=== PATIENT | female | born 1950 | race Caucasian/White ===

== ENCOUNTER → 2017-04-28 | Outpatient (REF) | payer MEDICARE ==
[2017-04-28 14:26] LABS: BASO % 0.8 % (0.0-1.0); EOS # 0.1 10^3/uL (0.0-0.50); EOS % 2.1 % (0.0-3.0); HEMATOCRIT 41.7 % (36.0-47.0); HEMOGLOBIN 13.4 g/dl (12.0-16.0); IMMATURE GRANULOCYTE % 0.2 % (0-3.0); LYMPH # 1.4 10^3/uL (1.5-4.5); LYMPH % 29.4 % (24.0-44.0); MEAN CORPUSCULAR HEMOGLOBIN 29.7 pg (27.0-33.0); MEAN CORPUSCULAR HGB CONC 32.1 g/dl (32.0-36.5); MEAN CORPUSCULAR VOLUME 92.5 fl (80.0-96.0); MONO # 0.4 10^3/uL (0.0-0.8); MONO % 8.3 % (0.0-5.0); NEUTROPHILS # 2.9 10^3/uL (1.8-7.7); NEUTROPHILS % 59.2 % (36.0-66.0); PLATELET COUNT, AUTOMATED 214 10^3/uL (150-450); RED BLOOD COUNT 4.51 10^6/uL (4.00-5.40); RED CELL DISTRIBUTION WIDTH 13.2 % (11.5-14.5); WHITE BLOOD COUNT 4.8 10^3/uL (4.0-10.0)
[2017-04-28 15:22] LABS: ALBUMIN 3.9 GM/DL (3.2-5.2); ALBUMIN/GLOBULIN RATIO 1.44 (1.00-1.93); ALKALINE PHOSPHATASE 51 U/L (45-117); ALT/SGPT 31 U/L (12-78); ANION GAP 7 MEQ/L (8-16); AST/SGOT 20 U/L (7-37); BILIRUBIN,TOTAL 0.3 MG/DL (0.2-1.0); BLOOD UREA NITROGEN 12 MG/DL (7-18); CALCIUM LEVEL 8.8 MG/DL (8.8-10.2); CARBON DIOXIDE LEVEL 29 MEQ/L (21-32); CHLORIDE LEVEL 109 MEQ/L (98-107); CHOLESTEROL LEVEL 211 MG/DL (<200); CHOLESTEROL RISK RATIO 3.246 (<5); CREATININE FOR GFR 0.59 MG/DL (0.55-1.30); GLOMERULAR FILTRATION RATE > 60.0 (>45); GLUCOSE, FASTING 81 MG/DL (70-100); HDL CHOLESTEROL 65 MG/DL (>40); LDL CHOLESTEROL 123.4 MG/DL (<100); NON-HDL-C 146 MG/DL; POTASSIUM SERUM 4.3 MEQ/L (3.5-5.1); SODIUM LEVEL 145 MEQ/L (136-145); TOTAL PROTEIN 6.6 GM/DL (6.4-8.2); TRIGLYCERIDES LEVEL 113 MG/DL (<150)
[2017-04-28 15:33] LABS: ESTIMATED AVERAGE GLUCOSE 108 MG/DL (60-110); HEMOGLOBIN A1c 5.4 %
== END ==
LOC: M SFHCPLAZ 10:15
DX: E66.9 Obesity, unspecified (principal); Z79.899 Other long term (current) drug therapy
CPT/HCPCS: 80053

== ENCOUNTER → 2017-09-25 | Outpatient (REF) | payer MEDICARE ==
[2017-09-25 13:10] LABS: CHOLESTEROL LEVEL 240 MG/DL (<200); HDL CHOLESTEROL 62 MG/DL (>40); LDL CHOLESTEROL 154.6 MG/DL (<100); NON-HDL-C 178 MG/DL; TRIGLYCERIDES LEVEL 117 MG/DL (<150)
[2017-09-25 13:13] LABS: TOTAL 25(OH) VITAMIN D 20.3 NG/ML (30.0-100.0)
== END ==
LOC: M SFHCPLAZ 09:52
DX: E78.00 Pure hypercholesterolemia, unspecified (principal); E55.9 Vitamin D deficiency, unspecified; Z79.899 Other long term (current) drug therapy
CPT/HCPCS: 82306

== ENCOUNTER → 2017-10-29 | Outpatient (CLI) | payer MEDICARE | LOC: M WHC 09:56 | DX: M81.0 Age-related osteoporosis without current pathological fracture (principal) | CPT/HCPCS: 77080 ==

== ENCOUNTER → 2017-10-30 | Outpatient (REF) | payer MEDICARE ==
[2017-10-30 12:43] LABS: ALBUMIN 3.4 GM/DL (3.2-5.2); ALBUMIN/GLOBULIN RATIO 1.13 (1.00-1.93); ALKALINE PHOSPHATASE 57 U/L (45-117); ALT/SGPT 35 U/L (12-78); ANION GAP 9 MEQ/L (8-16); AST/SGOT 21 U/L (7-37); BILIRUBIN,TOTAL 0.3 MG/DL (0.2-1.0); BLOOD UREA NITROGEN 11 MG/DL (7-18); CALCIUM LEVEL 8.7 MG/DL (8.8-10.2); CARBON DIOXIDE LEVEL 27 MEQ/L (21-32); CHLORIDE LEVEL 109 MEQ/L (98-107); CHOLESTEROL LEVEL 139 MG/DL (<200); CHOLESTEROL RISK RATIO 2.396 (<5); CPK CREATINE PHOSPHOKINASE 50 U/L (26-192); CREATININE FOR GFR 0.53 MG/DL (0.55-1.30); GLOMERULAR FILTRATION RATE > 60.0 (>45); GLUCOSE, FASTING 84 MG/DL (70-100); HDL CHOLESTEROL 58 MG/DL (>40); LDL CHOLESTEROL 60.8 MG/DL (<100); NON-HDL-C 81 MG/DL; POTASSIUM SERUM 4.3 MEQ/L (3.5-5.1); SODIUM LEVEL 145 MEQ/L (136-145); TOTAL PROTEIN 6.4 GM/DL (6.4-8.2); TRIGLYCERIDES LEVEL 101 MG/DL (<150)
== END ==
LOC: M SFHCPLAZ 09:11
DX: E78.00 Pure hypercholesterolemia, unspecified (principal)
CPT/HCPCS: 82550

== ENCOUNTER → 2017-10-30 | Outpatient (CLI) | payer MEDICARE | LOC: M SMT 12:01 | DX: R22.42 Localized swelling, mass and lump, left lower limb (principal); S80.12XA Contusion of left lower leg, initial encounter; W19.XXXA Unspecified fall, initial encounter; Y92.9 Unspecified place or not applicable; E78.00 Pure hypercholesterolemia, unspecified | CPT/HCPCS: 73590; 82550 ==

== ENCOUNTER 2017-11-03 07:46 | Outpatient (CLI) | payer MEDICARE ==
[2017-11-03] MEDS: ZOLEDRONIC ACID 5 MG in APPROPRIATE DILUENT 1 EA IV (08:02)
== END 2017-11-03 08:50 | disposition home or self-care (01) ==
LOC: M INFU 07:46
DX: M81.0 Age-related osteoporosis without current pathological fracture (principal); R51 Headache; M54.9 Dorsalgia, unspecified; F41.0 Panic disorder [episodic paroxysmal anxiety]; M48.00 Spinal stenosis, site unspecified; Z79.82 Long term (current) use of aspirin; Z79.899 Other long term (current) drug therapy; Z90.710 Acquired absence of both cervix and uterus; Z90.49 Acquired absence of other specified parts of digestive tract
CPT/HCPCS: J3489

== ENCOUNTER → 2018-05-19 | Outpatient (CLI) | payer MEDICARE ==
[~2018-05-19] MED LIST: ACET-683 PO; AMLO25TA PO; ASPI81TA85 PO; DRIS50003 PO; GABA-845 PO; OMEP40CA2 PO; PARO10TA3 PO
--- NOTE | 2018-05-19 14:10 | REPMRS ---
Patient History The patient states she has not had a clinical breast exam in over a year. Family history of ovarian cancer at age 50 in sister, colorectal cancer at age 50 in sister. No Hormone Replacement Therapy 3D TOMOSYNTHESIS WAS PERFORMED. Digital Woman Screen Mammo: May 19, 2018 - Exam #: [id number] Bilateral CC and MLO view(s) were taken. Technologist: Deana Ruiz, Technologist Prior study comparison: February 2017, bilateral digital mammo screening bilat, performed at [facility]. FINDINGS: There are scattered fibroglandular densities. There has been no change in the appearance of the mammogram from the prior studies. There is a mild amount of residual fibroglandular tissue which is fairly symmetric. There is no interval development of dominant mass, architectural distortion, or clustered microcalcification suggestive of malignancy. Assessment: BI-RADS/ACR category 1 mammogram. Negative Mammogram. Recommendation Routine screening mammogram in 1 year (for women over age 40). This mammogram was interpreted with the aid of an FDA-approved computer-aided dectection system. Electronically Signed By: Juan Aldrich MD 05/19/18 [id number]
== END ==
LOC: M WHC 09:45
PROVIDERS: ATTEND Physician Assistant Medical
DX: Z12.31 Encounter for screening mammogram for malignant neoplasm of breast (principal)

== ENCOUNTER → 2018-06-29 | Outpatient (CLI) | payer MEDICARE ==
--- NOTE | 2018-06-29 14:23 | REP ---
REASON: Pelvic pain . Secondary to the patient's complaints of pain, ovarian Doppler was obtained. There are no priors for comparison. Transvesical and transvaginal imaging was obtained. The patient is status post hysterectomy. Right ovary measures 2.7 x 1.3 x 1.6 cm and is within normal limits with an RI 0.42 Left ovary measures 1.1 x 0.8 x 1.2 cm and is within normal limits with an RI 0.53. Urinary bladder measures 10 x 10 x 9 cm. The technologist has made reverences to some vague nodule inferior to the urinary bladder. The etiology of this, if real is uncertain. IMPRESSION: 1. No ovarian abnormality. Findings as described above. 2. Questionable nodule in the pelvis. CT is recommended for further evaluation.
== END ==
LOC: M WHC 11:03
PROVIDERS: ATTEND Nurse Practitioner Family
DX: R19.00 Intra-abdominal and pelvic swelling, mass and lump, unspecified site (principal); Z80.41 Family history of malignant neoplasm of ovary; Z90.79 Acquired absence of other genital organ(s)

== ENCOUNTER → 2018-07-03 | Outpatient (REF) | payer MEDICARE ==
[2018-07-03 16:21] LABS: ALBUMIN 4.2 GM/DL (3.2-5.2); ALT/SGPT 33 U/L (12-78); BILIRUBIN,TOTAL 0.5 MG/DL (0.2-1.0); BLOOD UREA NITROGEN 12 MG/DL (7-18); CALCIUM LEVEL 9.2 MG/DL (8.8-10.2); CARBON DIOXIDE LEVEL 29 MEQ/L (21-32); CHLORIDE LEVEL 106 MEQ/L (98-107); CREATININE FOR GFR 0.58 MG/DL (0.55-1.30); FREE T4 1.01 NG/DL (0.76-1.46); GLOMERULAR FILTRATION RATE > 60.0 (>45); GLUCOSE, FASTING 78 MG/DL (70-100); POTASSIUM SERUM 4.1 MEQ/L (3.5-5.1); PTH INTACT 57.2 PG/ML (18.5-88.0); SODIUM LEVEL 141 MEQ/L (136-145); THYROID STIMULATING HORMONE 0.597 uIU/ML (0.358-3.740); TOTAL 25(OH) VITAMIN D 99.1 NG/ML (30.0-100.0); TOTAL PROTEIN 6.8 GM/DL (6.4-8.2)
== END ==
LOC: M SFHCPLAZ 13:34
PROVIDERS: ATTEND Physician Assistant Medical
DX: E55.9 Vitamin D deficiency, unspecified (principal); I10 Essential (primary) hypertension; E66.9 Obesity, unspecified

== ENCOUNTER → 2018-07-08 | Outpatient (CLI) | payer MEDICARE ==
[~2018-07-08] MED LIST changes: +GASTROGRAFIN SOLUTION 30ML (Q9963) As Ordered ONE; +ISOVUE-370 76% 100ML VIAL (Q9967) As Ordered ONE
--- NOTE | 2018-07-08 16:28 | REP ---
CT of the abdomen and pelvis with IV and oral contrast: Study is correlated with the pelvic ultrasound dated 06/29/2018. The patient has a hysterectomy. On the pelvic ultrasound. The technologist identified a soft tissue density along the inferior margin of the bladder of uncertain significance. Pelvis: The bladder is unremarkable. The vaginal cuff and adnexa are unremarkable. There is soft tissue fullness interposed between the bladder base and vaginal vault, nonspecific. This could represent a coapted portion of the vaginal volts or possibly a hysterectomy. Postsurgical change. The reason for the hysterectomy is unknown to this examiner. As a precaution, I would recommend a follow-up study in approximately 3-4 months to evaluate for progressive change. Follow-up could be performed with MRI or CT. The appendix is unremarkable. There is no pelvic adenopathy or ascites. The pelvic bowel loops are unremarkable. Abdomen: The visualized lung west are unremarkable. The hepatic parenchyma is unremarkable. There is a cholecystectomy. The pancreas, spleen, adrenals, kidneys and abdominal aorta are unremarkable except for a small simple right renal cyst at the mid pole approximate 1 cm in diameter. There is no bowel distension or obstruction. The mesentery is unremarkable. Impression: Soft tissue fullness at the bladder base in this patient who has had a hysterectomy. This could represent postsurgical change or possibly coaptation of the vaginal vault. As a precaution, follow-up MRI or CT in approximately 3-4 months might be considered to evaluate for progressive change. Hysterectomy. Cholecystectomy. Electronically Signed by Juan Ayala MD 07/08/2018 04:20 P
== END ==
LOC: M RAD 13:45
PROVIDERS: ATTEND Nurse Practitioner Family
DX: R10.2 Pelvic and perineal pain (principal); R93.89 Abnormal findings on diagnostic imaging of other specified body structures; Z90.79 Acquired absence of other genital organ(s)
CPT/HCPCS: 74177; Q9963; Q9967

== ENCOUNTER 2018-11-12 14:38 | Outpatient (CLI) | payer MEDICARE ==
[~2018-11-12] VITALS: Ht 157.5 cm; Wt 79.0 kg
[~2018-11-12 14:38] MED LIST changes: +ATOR1TAB19 PO; +GABA600T4 PO; -GASTROGRAFIN SOLUTION 30ML (Q9963) As Ordered ONE; -ISOVUE-370 76% 100ML VIAL (Q9967) As Ordered ONE; +OMEP1CAP73 PO; -OMEP40CA2 PO; +OMEP40CA97 PO; +RALO1TAB
[2018-11-12 14:40] VITALS: BP 130/67
[2018-11-12] MEDS ORDERED: ZOLEDRONIC ACID 5 MG in IV 1 EA IV ONE (15:00)
[2018-11-12 16:00] VITALS: BP 126/64
== END 2018-11-12 16:00 | disposition home or self-care (01) ==
LOC: M INFU 14:38
PROVIDERS: ATTEND Physician Assistant Medical
DX: M81.0 Age-related osteoporosis without current pathological fracture (principal)
CPT/HCPCS: 96365; J3489

== ENCOUNTER → 2019-03-15 | Outpatient (CLI) | payer MEDICARE ==
[2019-03-15 13:40] LABS: EOS # 0.1 10^3/uL (0.0-0.5); EOS % 1.9 % (0.0-3.0); HEMATOCRIT 43.5 % (36.0-47.0); HEMOGLOBIN 13.9 g/dl (12.0-15.5); LYMPH # 1.3 10^3/uL (1.5-5.0); LYMPH % 31.6 % (24.0-44.0); MEAN CORPUSCULAR HEMOGLOBIN 29.3 pg (27.0-33.0); MEAN CORPUSCULAR VOLUME 91.6 fl (80.0-96.0); MONO # 0.3 10^3/uL (0.0-0.8); NEUTROPHILS # 2.4 10^3/uL (1.5-8.5); NEUTROPHILS % 57.3 % (36.0-66.0); PLATELET COUNT, AUTOMATED 248 10^3/uL (150-450); RED BLOOD COUNT 4.75 10^6/uL (4.00-5.40); WHITE BLOOD COUNT 4.1 10^3/uL (4.0-10.0)
[2019-03-15 13:47] LABS: ALBUMIN 3.9 GM/DL (3.2-5.2); ALT/SGPT 21 U/L (12-78); BILIRUBIN,TOTAL 0.5 MG/DL (0.2-1.0); BLOOD UREA NITROGEN 12 MG/DL (7-18); CALCIUM LEVEL 8.8 MG/DL (8.8-10.2); CARBON DIOXIDE LEVEL 30 MEQ/L (21-32); CHLORIDE LEVEL 111 MEQ/L (98-107); CHOLESTEROL LEVEL 158 MG/DL (<200); CHOLESTEROL RISK RATIO 2.468 (<5); CREATININE FOR GFR 0.53 MG/DL (0.55-1.30); GLOMERULAR FILTRATION RATE > 60.0 (>45); GLUCOSE, FASTING 93 MG/DL (70-100); HDL CHOLESTEROL 64 MG/DL (>40); LDL CHOLESTEROL 65 MG/DL (<100); NON-HDL-C 94 MG/DL; POTASSIUM SERUM 4.2 MEQ/L (3.5-5.1); SODIUM LEVEL 144 MEQ/L (136-145); TOTAL PROTEIN 6.7 GM/DL (6.4-8.2); TRIGLYCERIDES LEVEL 145 MG/DL (<150)
[2019-03-15 13:56] LABS: PTH INTACT 69.6 PG/ML (18.5-88.0); TOTAL 25(OH) VITAMIN D 34.7 NG/ML (30.0-100.0)
[2019-03-15 14:35] LABS: HEMOGLOBIN A1c 5.4 %
== END ==
LOC: M PLALAB 10:52
PROVIDERS: ATTEND Physician Assistant Medical
DX: I10 Essential (primary) hypertension (principal); E78.00 Pure hypercholesterolemia, unspecified; E55.9 Vitamin D deficiency, unspecified; E66.9 Obesity, unspecified; Z79.899 Other long term (current) drug therapy

== ENCOUNTER 2019-04-06 14:31 | Emergency (ER) | payer MEDICARE ==
[~2019-04-06] VITALS: Ht 157.5 cm; Wt 75.2 kg
[2019-04-06 14:31] VITALS: BP 165/87
--- NOTE | 2019-04-06 16:35 | REP ---
Clinical: Pain. Trauma. Technique: AP and lateral views of the right tibia / fibula. Findings: No acute fracture dislocation. Joint spaces appear intact. No subcutaneous emphysema or foreign body. Impression: No acute fracture or dislocation. Electronically Signed by Khanh Dietz MD 04/06/2019 04:26 P
--- NOTE | 2019-04-06 16:35 | REP ---
Clinical: Pain. Technique: AP, lateral, bilateral oblique views of the right ankle. Findings: Swelling. No acute fracture dislocation. Impression: Swelling. No fracture. Electronically Signed by Khanh Dietz MD 04/06/2019 04:26 P
[2019-04-06] MEDS ORDERED: ACETAMINOPHEN 500 MG TAB PO ONE (17:30)
== END 2019-04-06 17:45 | disposition home or self-care (01) ==
LOC: M ED 14:31
DX: S93.401A Sprain of unspecified ligament of right ankle, initial encounter (principal); W00.0XXA Fall on same level due to ice and snow, initial encounter; Y92.9 Unspecified place or not applicable; Y93.9 Activity, unspecified; Y99.9 Unspecified external cause status; E78.5 Hyperlipidemia, unspecified; F41.9 Anxiety disorder, unspecified; I10 Essential (primary) hypertension; Z79.1 Long term (current) use of non-steroidal anti-inflammatories (NSAID); Z79.82 Long term (current) use of aspirin; Z79.899 Other long term (current) drug therapy

== ENCOUNTER → 2019-11-19 | Outpatient (CLI) | payer MEDICARE ==
[~2019-11-19] MED LIST changes: -ASPI81TA85 PO; +ASPI81TA86 PO; +RECL5INJ2 IV
[2019-11-19 11:39] LABS: BASO # 0.1 10^3/uL (0.0-0.2); BASO % 0.9 % (0.0-1.0); EOS # 0.1 10^3/uL (0.0-0.5); EOS % 1.5 % (0.0-3.0); HEMATOCRIT 45.7 % (36.0-47.0); HEMOGLOBIN 14.3 g/dl (12.0-15.5); LYMPH # 1.7 10^3/uL (1.5-5.0); MEAN CORPUSCULAR HEMOGLOBIN 29.4 pg (27.0-33.0); MEAN CORPUSCULAR HGB CONC 31.3 g/dl (32.0-36.5); MEAN CORPUSCULAR VOLUME 93.8 fl (80.0-96.0); MONO # 0.5 10^3/uL (0.0-0.8); MONO % 9.8 % (0.0-5.0); NEUTROPHILS % 56.4 % (36.0-66.0); PLATELET COUNT, AUTOMATED 253 10^3/uL (150-450); RED BLOOD COUNT 4.87 10^6/uL (4.00-5.40); WHITE BLOOD COUNT 5.3 10^3/uL (4.0-10.0)
[2019-11-19 12:09] LABS: ALBUMIN 3.8 GM/DL (3.2-5.2); ALT/SGPT 27 U/L (12-78); BILIRUBIN,TOTAL 0.5 MG/DL (0.2-1.0); BLOOD UREA NITROGEN 13 MG/DL (7-18); CALCIUM LEVEL 9.2 MG/DL (8.8-10.2); CARBON DIOXIDE LEVEL 29 MEQ/L (21-32); CHLORIDE LEVEL 109 MEQ/L (98-107); CREATININE FOR GFR 0.56 MG/DL (0.55-1.30); FREE T4 0.99 NG/DL (0.76-1.46); GLOMERULAR FILTRATION RATE > 60.0 (>45); GLUCOSE, FASTING 84 MG/DL (70-100); POTASSIUM SERUM 4.5 MEQ/L (3.5-5.1); SODIUM LEVEL 141 MEQ/L (136-145); THYROID STIMULATING HORMONE 0.826 uIU/ML (0.358-3.740); TOTAL PROTEIN 6.8 GM/DL (6.4-8.2)
== END ==
LOC: M PLALAB 09:06
PROVIDERS: ATTEND Physician Assistant Medical
DX: F41.9 Anxiety disorder, unspecified (principal); I10 Essential (primary) hypertension; M81.0 Age-related osteoporosis without current pathological fracture; K21.9 Gastro-esophageal reflux disease without esophagitis

== ENCOUNTER 2019-11-22 14:43 | Outpatient (CLI) | payer MEDICARE ==
[~2019-11-22] VITALS: Ht 157.5 cm; Wt 75.0 kg
[~2019-11-22 14:43] MED LIST changes: -RECL5INJ2 IV
[2019-11-22 14:45] VITALS: BP 134/73
[2019-11-22] MEDS ORDERED: RECL5INJ2 IV (15:12)
[2019-11-22] MEDS ORDERED: ZOLEDRONIC ACID 5 MG in IV 1 EA IV ONE (15:30)
[2019-11-22 15:45] VITALS: BP 133/74
== END 2019-11-22 15:45 | disposition home or self-care (01) ==
LOC: M INFU 14:43
PROVIDERS: ATTEND Family Medicine
DX: M85.80 Other specified disorders of bone density and structure, unspecified site (principal)
CPT/HCPCS: 96365; J3489

== ENCOUNTER 2020-03-10 11:55 | Emergency (ER) | payer MEDICARE ==
[~2020-03-10] VITALS: Ht 160 cm; Wt 74.4 kg
[~2020-03-10 11:55] MED LIST changes: +RECL5INJ2 IV
--- OUTSIDE RECORDS SUMMARY | 2020-03-10 12:02 | CCD ---
Author Author [facility] Package [employer]st [facility] Organization [facility] Syst ems Address Unknown Phone Unavailable Care Team Providers Care Charge Hand Name Role Phone Shaneka Culp Unavailable PROBLEMS Type Condition ICD9-CM Code [id number] Code Onset Dates Condition S tatus SNOMED Code Notes Problem Acquired absence of both cervix and uterus Z90.710 Active 057088869 Problem Vitamin D deficiency E55.9 Active 76255425 Problem Gastroesophageal reflux disease, esophagitis pre sence not specified K21.9 Active 414222738 Problem Anxiety F41.9 Active 13285833 Problem Obesity (BMI 30.0-34.9) E66.9 Active 01235278 8662285 Problem DDD (degenerative disc disease), lumbar M51.36 Active 64828055 Problem Essential hypertension I10 Active 95960100 Problem Colon cancer screening Z12.11 Active 644460126 Problem Pure hypercholesterolemia E78.00 Active 180814 004 Problem Age-related osteoporosis with current pathologic al fracture, sequela M80.00XS Active 445781862 Problem Age-related osteoporosis without current pathological fracture M81.0 Active 11842709 Problem Hypertension, unspecified type I10 Active 3 5896678 Problem Breast cancer screening Z12.31 Active 86057134 1 Problem Grief reaction F43.21 Active 036341898 Problem Cervical cancer screening Z12.4 Active 509990 001 Problem Situational stress F43.9 Active 82374551 Problem Family history of malignant neoplasm of ovary Z80. 41 Active 145672801 Problem Stress incontinence N39.3 Active 74061440 Problem Pelvic organ prolapse quantification stage 1 cystocele N81.10 Active 843435748 ALLERGIES No Known Allergies ENCOUNTERS from 1950 to 2020-01-04 Encounter Location Date Provider Diagnosis [facility] [place] [address] Dec, Shaneka Robbi DDD (degenerative disc disease), lumbar M51.36 and Anxiety F41.9 IMMUNIZATIONS Vaccine Route Administration Date Status Influenza (Pharmacy Given) Unknown Mar 27, 2019 Admin istered Zoster 50mcg/0.5mL (Shingrix) SC Subcutaneous August 03, 2019 Ad ministered Zoster 50mcg/0.5mL (Shingrix) SC Subcutaneous April 26, 2019 Ad ministered Pneumococcal Adult 0.5mL (Pneumovax 23) Unknown Mar 27, 2019 Administered SOCIAL HISTORY Tobacco Use: Social History Observation Description Date Details (start date - stop date) Former Smoker Sex Assigned At : Social History Observation Description Sex Assigned At Unknown Education: Question Answer Notes Level of Education: Finished High School Audit Question Answer Notes Total Score: 0 Interpretation: Alcohol Education Language: Question Answer Notes Languages spoken: Wolof Worship: Question Answer Notes Worship 21 Amish Sexual Hx: Question Answer Notes Have you ever had an STD? No Drug and Alcohol Question Answer Notes Total Score: 0 Interpretation: No problems reported Alcohol Screening: Question Answer Notes Did you have a drink containing alcohol in the past year? No Points 0 Interpretation Negative BMI Care Goal Follow-Up Question Answer Notes Above Normal BMI Follow-Up Lifestyle education regarding t Tobacco Use: Question Answer Notes Are you a: former smoker How long has it been since you last smoked? 5-10 years REASON FOR REFERRAL No Information VITAL SIGNS No information MEDICATIONS Medication SIG (Take, Route, Frequency, Duration) Start Date En d Date Status Gabapentin 600 MG 1 tablet Orally twice daily for 90 day(s) Active AmLODIPine Besylate 2.5 MG 1 tablet Orally Once a day for 90 days Active Lipitor 10 MG 1 tablet Orally Once a day for 90 Active Reclast 5 MG/100ML 1 injection Intravenous annual for 1 dose(s) Sep, Active Tylenol 1 tab Oral as needed Active Omeprazole 20 MG 1 capsule Orally Once a day for 90 day(s) Active Aspirin 81 81 MG 1 tablet Orally Once a day Active Paroxetine HCl 10 MG 1 tablet Orally twice daily for 90 days Active Meclizine HCl 25 MG 1 tablet as needed Orally Daily as neede d for 90 days Feb, Active Drisdol 85491 UNIT 1 capsule Orally Once weekly for 90 day(s) Active Raloxifene HCl 60 MG 1 tablet Orally Once a day for 90 day(s) Active PROCEDURES No Information RESULTS No Results REASON FOR VISIT refills MEDICAL (GENERAL) HISTORY Type Description Date Medical History Anxiety Medical History Osteoporosis Medical History DJD of Lumbar spine Medical History DDD of Lumbar spine Medical History GERD Medical History Herpes 1 Medical History H/o BPPV better since quit smoking a few smaller episodes since Medical History Leal's esophagus Medical History HTN Surgical History Vaginal hysterectomy 1991 Surgical History hemorrhoidectomy 2004 Surgical History Laparoscopic Cholecystectomy 2004 Surgical History Edentulous extracted Surgical History Colonoscopy clear in [place] c Dr. Carlo mckinney 2013 Surgical History Colonooscopy c nl mucosa, at terminal ileum and colon, grade 2 int. hem.s 11/2012 Surgical History EGD nl stomache, nl duodenum , nl gerjunction, recommended 3Yr. f/u Dr. Junior 11/2012 Surgical History EGD Leal's esophagus, bio psy c nl mucosa in fundus, Dr. Junior 2Mos. f/u 06/2012 Surgical History EGD Leal's esophagus, f/u 2Mos. again, ppi bidx3 mos., carafate Dr. Junior 08/2012 Surgical History EGD GE Junction biopsy intesttinal type, neg. dysplasia 01/2012 Hospitalization History surgery related 1991 Hospitalization History surgery related 2004 Goals Section No Information Health Concerns No Information MEDICAL EQUIPMENT No Information MENTAL STATUS No Information FUNCTIONAL STATUS No Information ASSESSMENTS Encounter Date Diagnosis Notes Dec, Anxiety (ICD-10 - F41.9) Dec, DDD (degenerative disc disease), lumbar (ICD-10 - M51.36) PLAN OF TREATMENT Medication Medication Name Sig Start Date Stop Date Gabapentin 600 MG 1 tablet Orally twice daily for 90 day(s) Meclizine HCl 25 MG 1 tablet as needed Orally Daily as neede d for 90 days Feb, Drisdol 42994 UNIT 1 capsule Orally Once weekly for 90 day(s) Paroxetine HCl 10 MG 1 tablet Orally twice daily for 90 days AmLODIPine Besylate 2.5 MG 1 tablet Orally Once a day for 90 day s Omeprazole 20 MG 1 capsule Orally Once a day for 90 day(s) Lipitor 10 MG 1 tablet Orally Once a day for 90 Next Appt Details Provider Name:Shaneka Culp, 2020-1 2-10 02:30:00 PM, [address] [place], [address], Insurance Providers Payer Name Payer Address Payer Phone Insured Name Patient Relati onship to Insured Coverage Start Date Coverage End Date MEDICARE COMPLETE UNITED HEALTHCARE [address] [address] [facility] [phone] THOMAS FRANCO self
--- OUTSIDE RECORDS SUMMARY | 2020-03-10 12:02 | CCD | Continuity of Care Document ---
Author Author [facility] Organization Unknown Address [address] [place] [address] [place] [address] Phone [phone] Care Team Providers Care Installation Helper Name Role Phone Shaneka Culp AUTM [phone] Dov Co Publi AUTM [phone] Problems Description No Information Available Social History Type Date Description Comments Sex Unknown ETOH Use Denies alcohol use Tobacco Use Start: Unknown End: Unknown Patient is a former smoker quit 2007 Tobacco Use Start: Unknown The Patient Has Never Vaped Smoking Status Reviewed: 03/03/20 The Patient Has Never Vaped Allergies, Adverse Reactions, Alerts Description No Known Drug Allergies Medications Active Medications SIG Qnty Indications Ordering Provide r Date Amlodipine Besylate 2.5mg Tablets qd Unknown Aspirin [address] on ce a day Unknown Atorvastatin Calcium 10mg Tablets qd Unknown Gabapentin 300mg Capsules 2 b id Unknown Omeprazole 20mg Capsules DR q d Unknown Paroxetine HCL 10mg Tablets b id Unknown Raloxifene HCL 60mg Tablets q d Unknown Tylenol 325mg Tablets prn Unknown Immunizations Description No Information Available Vital Signs Date Vital Result Comment 2020 9:52am BP Systolic 118 mmHg BP Diastolic 64 mmHg Heart Rate 88 /min Respiratory Rate 14 /min O2 % BldC Oximetry 97 % Body Temperature 97.0 F Weight 168.00 lb Pain Level 3 11/30/2018 6:59pm BP Systolic 142 mmHg BP Diastolic 80 mmHg Heart Rate 88 /min Respiratory Rate 18 /min O2 % BldC Oximetry 95 % Body Temperature 99.5 F Weight 170.00 lb Height 63 inches 5'3" BMI (Body Mass Index) 30.1 kg/m2 Pain Level 3 Results Description No Information Available Procedures Description No Information Available Medical Devices Description No Information Available Encounters Type Date Location Provider Dx Diagnosis Office Visit 2020 9:30a Main Office LINDY Garcia U07 .1 Covid-19 R05 Cough Z20.828 Contact w and exposure to ot h viral communicable diseases Assessments Date Code Description Provider 2020 U07.1 Covid-19 LINDY Sawyer 2020 R05 Cough LINDY Sawyer 2020 Z20.828 Contact with and (thomson spected) exposure to other viral communicable diseases LINDY Garcia Plan of Treatment No Information Available Functional Status Description No Information Available Mental Status Description No Information Available Referrals Description No Information Available
--- OUTSIDE RECORDS SUMMARY | 2020-03-10 12:02 | CCD | Continuity of Care Document ---
Author Author [facility] Organization Unknown Address [address] [place] [address] [place] [address] Phone [phone] Care Team Providers Care High School Art Teacher Name Role Phone Shaneka Culp AUTM [phone] Dov Co Publi AUTM [phone] Problems Description No Information Available Social History [...]
--- OUTSIDE RECORDS SUMMARY | 2020-03-10 12:02 | CCD ---
Author Author [facility] [employer] [facility] Syst ems Organization [facility] [employer] Syst ems Address Unknown Phone Unavailable Care Team Providers Care Hoseman Name Role Phone Shaneka Culp Unavailable PROBLEMS Type Condition ICD9-CM Code BQE79-SZ Code Onset Dates Condition S tatus SNOMED Code Notes Problem Acquired absence of both cervix and uterus Z90.710 Active 429411527 Problem Vitamin D deficiency E55.9 Active 38391864 Problem Gastroesophageal reflux disease, esophagitis pre sence not specified K21.9 Active 017490153 Problem Anxiety F41.9 Active 30178949 Problem Obesity (BMI 30.0-34.9) E66.9 Active 47758081 9368399 Problem DDD (degenerative disc disease), lumbar M51.36 Active 18321953 Problem Essential hypertension I10 Active 55377536 Problem Colon cancer screening Z12.11 Active 362933487 Problem Pure hypercholesterolemia E78.00 Active 606160 004 Problem Age-related osteoporosis with current pathologic al fracture, sequela M80.00XS Active 276111375 Problem Age-related osteoporosis without current pathological fracture M81.0 Active 72072753 Problem Hypertension, unspecified type I10 Active 3 7296470 Problem Breast cancer screening Z12.31 Active 29987340 1 Problem Grief reaction F43.21 Active 788792596 Problem Cervical cancer screening Z12.4 Active 483199 001 Problem Situational stress F43.9 Active 18502242 Problem Family history of malignant neoplasm of ovary Z80. 41 Active 231694625 Problem Stress incontinence N39.3 Active 76184889 Problem Pelvic organ prolapse quantification stage 1 cystocele N81.10 Active 391081046 ALLERGIES No Known Allergies ENCOUNTERS from 1950 to 2020-01-18 Encounter Location Date Provider Diagnosis [facility] [place] [address] Dec, Shaneka Culp Essential hypertension I10 IMMUNIZATIONS Vaccine Route Administration Date Status Influenza [...] Education Language: Question Answer Notes Languages spoken: Icelandic Mormon: Question Answer Notes Mormon 21 Rastafarian Sexual Hx: Question Answer Notes Have you [...] MEDICATIONS Medication SIG (Take, Route, Frequency, Duration) Notes Start Da te End Date Status Gabapentin 600 MG 1 tablet Orally twice daily for 90 day(s) Active AmLODIPine Besylate 2.5 MG 1 tablet Orally Once a day for 90 days Active Lipitor 10 MG 1 tablet Orally Once a day for 90 Active Reclast 5 MG/100ML 1 injection Intravenous annual for 1 dose(s) Sep, Active Tylenol 1 tab Oral as needed Acti ve Omeprazole 20 MG 1 capsule Orally Once a day for 90 day(s) Active Aspirin 81 81 MG 1 tablet Orally Once a day Active Paroxetine HCl 10 MG 1 tablet Orally twice daily for 90 days Active Meclizine HCl 25 MG 1 tablet as needed Orally Daily as needed fo r 90 days Feb, Active Drisdol 12738 UNIT 1 capsule Orally Once weekly for 90 day(s) Active Raloxifene HCl 60 MG 1 tablet Orally Once a day for 90 day(s) Active PROCEDURES No Information RESULTS No Results REASON FOR VISIT amlodopine MEDICAL (GENERAL) HISTORY Type Description Date Medical [...] Edentulous extracted Surgical History Colonoscopy clear in [place] c Dr. Carlo mckinney 2013 Surgical History [...] STATUS No Information ASSESSMENTS Encounter Date Diagnosis Assessment Notes Treatment Notes Treatm ent Clinical Notes Dec, Essential hypertension (ICD-10 - I10) PLAN OF TREATMENT Medication Medication Name Sig Start Date Stop Date Gabapentin 600 MG 1 tablet Orally twice daily for 90 day(s) Meclizine HCl 25 MG 1 tablet as needed Orally Daily as neede d for 90 days Feb, Nhan 30142 UNIT 1 capsule Orally Once weekly for [...] 90 Next Appt Details Provider Name:Shaneka Culp, 2019-04-05 02:30:00 PM, [address] [place] [address], [phone], Insurance Providers Payer Name Payer Address Payer Phone Insured Name Patient Relati onship to Insured Coverage Start Date Coverage End Date MEDICARE COMPLETE UNITED HEALTHCARE [address] [address] [facility] [phone] THOMAS FRANCO self
--- OUTSIDE RECORDS SUMMARY | 2020-03-10 12:02 | CCD ---
Author Author [facility] Syst ems Organization [facility] Syst ems Address Unknown Phone Unavailable Care Team Providers Care Lung Puller Name Role Phone Shaneka Culp Unavailable PROBLEMS Type Condition ICD9-CM Code FWC89-TU Code Onset Dates Condition S tatus SNOMED Code Notes Problem Acquired absence of both cervix and uterus Z90.710 Active 735754424 Problem Vitamin D deficiency E55.9 Active 49504033 Problem Gastroesophageal reflux disease, esophagitis pre sence not specified K21.9 Active 960928559 Problem Anxiety F41.9 Active 05011145 Problem Obesity (BMI 30.0-34.9) E66.9 Active 86802255 3882565 Problem DDD (degenerative disc disease), lumbar M51.36 Active 96511642 Problem Essential hypertension I10 Active 00845566 Problem Colon cancer screening Z12.11 Active 375772396 Problem Pure hypercholesterolemia E78.00 Active 050620 004 Problem Age-related osteoporosis with current pathologic al fracture, sequela M80.00XS Active 442172488 Problem Age-related osteoporosis without current pathological fracture M81.0 Active 28095033 Problem Hypertension, unspecified type I10 Active 3 1231268 Problem Breast cancer screening Z12.31 Active 77012499 1 Problem Grief reaction F43.21 Active 586646421 Problem Cervical cancer screening Z12.4 Active 487427 001 Problem Situational stress F43.9 Active 96473002 Problem Family history of malignant neoplasm of ovary Z80. 41 Active 160867689 Problem Stress incontinence N39.3 Active 57659097 Problem Pelvic organ prolapse quantification stage 1 cystocele N81.10 Active 146035609 ALLERGIES No Known Allergies ENCOUNTERS from 1950 to 2019-12-22 Encounter Location Date Provider Diagnosis [facility] [place] [address] Nov, Shaneka Culp IMMUNIZATIONS Vaccine Route Administration Date Status Influenza [...] Education Language: Question Answer Notes Languages spoken: Thai Baptist: Question Answer Notes Baptist 21 Gnosticism Sexual Hx: Question Answer Notes Have you [...] Duration) Start Date En d Date Status Drisdol 50040 UNIT 1 capsule Orally Once weekly for 90 day(s) Active Reclast 5 MG/100ML 1 injection Intravenous annual for 1 dose(s) Sep, Active Lipitor 10 MG 1 tablet Orally Once a day for 90 day(s) Active Paroxetine HCl 10 MG 1 tablet Orally twice daily for 90 days Active Raloxifene HCl 60 MG 1 tablet Orally Once a day for 90 day(s) Active Tylenol 1 tab Oral as needed Active AmLODIPine Besylate 2.5 MG 1 tablet Orally Once a day for 90 days Active Gabapentin 600 MG 1 tablet Orally twice daily for 30 day(s) Active Meclizine HCl 25 MG 1 tablet as needed Orally Daily as neede d for 90 days Feb, Active Omeprazole 20 MG 1 capsule Orally Once a day for 90 day(s) Active Aspirin 81 81 MG 1 tablet Orally Once a day Active PROCEDURES No Information RESULTS No Results REASON FOR VISIT needs appt MEDICAL (GENERAL) HISTORY Type Description Date Medical [...] No Information FUNCTIONAL STATUS No Information ASSESSMENTS No Information PLAN OF TREATMENT Medication Medication Name Sig Start Date Stop Date Nhan 25750 UNIT 1 capsule Orally Once weekly for 90 day(s) Meclizine HCl 25 MG 1 tablet as needed Orally Daily as neede d for 90 days Feb, Omeprazole 20 MG 1 capsule Orally Once a day for 90 day(s) Gabapentin 600 MG 1 tablet Orally twice daily for 30 day(s) Lipitor 10 MG 1 tablet Orally Once a day for 90 day(s) AmLODIPine Besylate 2.5 MG 1 tablet Orally Once a day for 90 day s Next Appt Details Provider Name:Shaneka Culp, 2019-02 02:30:00 PM, [address] [place], [address], Insurance Providers Payer Name Payer Address Payer Phone Insured Name Patient Relati onship to Insured Coverage Start Date Coverage End Date MEDICARE COMPLETE UNITED HEALTHCARE [address] [address] [facility] [phone] THOMAS FRANCO self
--- OUTSIDE RECORDS SUMMARY | 2020-03-10 12:03 | CCD ---
Author Author [facility] Organization [facility] Address Unknown Phone Unavailable Care Team Providers Care Dividing Machine Operator Name Role Phone Myles BRIONES MD Unavailable Unavailable ANSELMO, B MONICA CONCEPCION Unavailable Unavailable ANSELMO, B MONICA CONCEPCION Unavailable Unavailable ANSELMO, B MONICA CONCEPCION Unavailable Unavailable ANSELMO, B MONICA CONCEPCION Unavailable Unavailable ANSELMO, B MONICA CONCEPCION Unavailable Unavailable ANSELMO, B MONICA CONCEPCION Unavailable Unavailable ANSELMO, B MONICA CONCEPCION Unavailable Unavailable ANSELMO, B MONICA CONCEPCION Unavailable Unavailable ANSELMO, B MONICA CONCEPCION Unavailable Unavailable ANSELMO, B MONICA CONCEPCION Unavailable Unavailable ANSELMO, B MONICA CONCEPCION Unavailable Unavailable ANSELMO, B MONICA CONCEPCION Unavailable Unavailable ANSELMO, B MONICA CONCEPCION Unavailable Unavailable ANSELMO, B MONICA CONCEPCION Unavailable Unavailable ANSELMO, B MONICA CONCEPCION Unavailable Unavailable ANSELMO, B MONICA CONCEPCION Unavailable Unavailable ANSELMO, B MONICA CONCEPCION Unavailable Unavailable ANSELMO, Myles ANDERSON MD Unavailable Unavailable ANSELMO, Myles ANDERSON MD Unavailable Unavailable ANSELMO, Myles ANDERSON MD Unavailable Unavailable ANSELMO, Myles ANDERSON MD Unavailable Unavailable ANSELMO, Myles ANDERSON MD Unavailable Unavailable ANSELMO, Myles ANDERSON MD Unavailable Unavailable ANSELMO, Myles ANDERSON MD Unavailable Unavailable ANSELMO, Myles ANDERSON MD Unavailable Unavailable ANSELMO, Myles ANDERSON MD Unavailable Unavailable ANSELMO, Myles ANDERSON MD Unavailable Unavailable ANSELMO, Myles ANDERSON MD Unavailable Unavailable ANSELMO, Myles ANDERSON MD Unavailable Unavailable ANSELMO, Myles ANDERSON MD Unavailable Unavailable ANSELMO, Myles ANDERSON MD Unavailable Unavailable ANSELMO, Myles ANDERSON MD Unavailable Unavailable ANSELMO, Myles ANDERSON MD Unavailable Unavailable ANSELMO, Myles ANDERSON MD Unavailable Unavailable ANSELMO, Myles ANDERSON MD Unavailable Unavailable ANSELMO, Myles ANDERSON MD Unavailable Unavailable ANSELMO, Myles ANDERSON MD Unavailable Unavailable ANSELMO, Myles ANDERSON MD Unavailable Unavailable ANSELMO, Myles ANDERSON MD Unavailable Unavailable ANSELMO, Myles ANDERSON MD Unavailable Unavailable ANSELMO, Myles ANDERSON MD Unavailable Unavailable ANSELMO, Myles ANDERSON MD Unavailable Unavailable ANSELMO, Myles ANDERSON MD Unavailable Unavailable ANSELMO, Myles ANDERSON MD Unavailable Unavailable ANSELMO, Myles ANDERSON MD Unavailable Unavailable ANSELMO, Myles ANDERSON MD Unavailable Unavailable ANSELMO, Myles ANDERSON MD Unavailable Unavailable ANSELMO, Myles ANDERSON MD Unavailable Unavailable ANSELMO, Myles ANDERSON MD Unavailable Unavailable ANSELMO, Myles ANDERSON MD Unavailable Unavailable ANSELMO, Myles ANDERSON MD Unavailable Unavailable ANSELMO, Myles ANDERSON MD Unavailable Unavailable ANSELMO, Myles ANDERSON MD Unavailable Unavailable ANSELMOMyles MD Unavailable Unavailable ANSELMOMyles MD Unavailable Unavailable ANSELMOMyles MD Unavailable Unavailable ANSELMOMyles MD Unavailable Unavailable ANSELMO, Myles ANDERSON MD Unavailable Unavailable ANSELMO, Myles ANDERSON MD Unavailable Unavailable ANSELMO, Myles ANDERSON MD Unavailable Unavailable ANSELMO, Myles ANDERSON MD Unavailable Unavailable ANSELMO, Myles ANDERSON MD Unavailable Unavailable ANSELMO, Myles ANDERSON MD Unavailable Unavailable ANSELMO, Myles ANDERSON MD Unavailable Unavailable ANSELMO, Myles ANDERSON MD Unavailable Unavailable ANSELMO, Myles ANDERSON MD Unavailable Unavailable ANSELMO, B MONICA MD Unavailable Unavailable ANSELMO, B MONICA MD Unavailable Unavailable ANSELMO, B MONICA MD Unavailable Unavailable ANSELMO, B MONICA MD Unavailable Unavailable ANSELMO, B MONICA MD Unavailable Unavailable ANSELMO, B MONICA MD Unavailable Unavailable ANSELMO, B MONICA MD Unavailable Unavailable ANSELMO, B MONICA MD Unavailable Unavailable ANSELMO, B MONICA MD Unavailable Unavailable ANSELMO, B MONICA MD Unavailable Unavailable ANSELMO, B MONICA MD Unavailable Unavailable ANSELMO, B MONICA MD Unavailable Unavailable ANSELMO, B MONICA MD Unavailable Unavailable ANSELMO, B MONICA MD Unavailable Unavailable ANSELMO, B MONICA MD Unavailable Unavailable ANSELMO, B MONICA MD Unavailable Unavailable Skipton, E Charlotte MD Unavailable Unavailable Skipton, E Charlotte MD Unavailable Unavailable Skipton, E Charlotte MD Unavailable Unavailable Skipton, E Charlotte MD Unavailable Unavailable Skipton, E Charlotte MD Unavailable Unavailable Skipton, E Charlotte MD Unavailable Unavailable Skipton, E Charlotte MD Unavailable Unavailable Skipton, E Charlotte MD Unavailable Unavailable Skipton, E Charlotte MD Unavailable Unavailable Skipton, E Charlotte MD Unavailable Unavailable Skipton, E Charlotte MD Unavailable Unavailable Skipton, E Charlotte MD Unavailable Unavailable Skipton, E Charlotte MD Unavailable Unavailable Skipton, E Charlotte MD Unavailable Unavailable Skipton, E Charlotte MD Unavailable Unavailable Skipton, E Charlotte MD Unavailable Unavailable Skipton, E Charlotte MD Unavailable Unavailable Skipton, E Charlotte MD Unavailable Unavailable Skipton, E Charlotte MD Unavailable Unavailable Skipton, E Charlotte MD Unavailable Unavailable Skipton, E Charlotte MD Unavailable Unavailable Skipton, E Charlotte MD Unavailable Unavailable Skipton, E Charlotte MD Unavailable Unavailable Skipton, E Charlotte MD Unavailable Unavailable Skipton, E Charlotte MD Unavailable Unavailable Skipton, E Charlotte MD Unavailable Unavailable Skipton, E Charlotte MD Unavailable Unavailable Skipton, E Charlotte MD Unavailable Unavailable Skipton, E Charlotte MD Unavailable Unavailable Skipton, E Charlotte MD Unavailable Unavailable Skipton, E Charlotte MD Unavailable Unavailable Skipton, E Charlotte MD Unavailable Unavailable Skipton, E Charlotte MD Unavailable Unavailable Skipton, E Charlotte MD Unavailable Unavailable Skipton, E Charlotte MD Unavailable Unavailable Skipton, E Charlotte MD Unavailable Unavailable Skipton, E Charlotte MD Unavailable Unavailable Skipton, E Charlotte MD Unavailable Unavailable Skipton, E Charlotte MD Unavailable Unavailable Skipton, E Charlotte MD Unavailable Unavailable Skipton, E Charlotte MD Unavailable Unavailable Skipton, E Charlotte MD Unavailable Unavailable Skipton, E Charlotte MD Unavailable Unavailable Skipton, E Charlotte MD Unavailable Unavailable Skipton, E Charlotte MD Unavailable Unavailable Skipton, E Charlotte MD Unavailable Unavailable Skipton, E Charlotte MD Unavailable Unavailable Skipton, E Charlotte MD Unavailable Unavailable Skipton, E Charlotte MD Unavailable Unavailable Skipton, E Charlotte MD Unavailable Unavailable Skipton, E Charlotte MD Unavailable Unavailable COMMISSO, Olena FANG MD Unavailable Unavailable COMMISSO, Olena FANG MD Unavailable Unavailable COMMISSO, Olena FANG MD Unavailable Unavailable COMMISSO, Olena FANG MD Unavailable Unavailable COMMISSO, Olena FANG MD Unavailable Unavailable COMMISSO, Olena FANG MD Unavailable Unavailable COMMISSO, Olena FANG MD Unavailable Unavailable COMMISSOOlena MD Unavailable Unavailable COMMISSOOlena MD Unavailable Unavailable COMMISSOOlena MD Unavailable Unavailable COMMISSOOlena MD Unavailable Unavailable COMMISSOOlena MD Unavailable Unavailable COMMISSOOlena MD Unavailable Unavailable COMMISSOOlena MD Unavailable Unavailable COMMISSOOlean MD Unavailable Unavailable COMMISSOOlena MD Unavailable Unavailable COMMISSOOlena MD Unavailable Unavailable COMMISSOOlena MD Unavailable Unavailable COMMISSOOlena MD Unavailable Unavailable COMMISSOOlena MD Unavailable Unavailable COMMISSOOlena MD Unavailable Unavailable COMMISSOOlena MD Unavailable Unavailable COMMISSOOlena MD Unavailable Unavailable COMMISSOOlena MD Unavailable Unavailable COMMISSOOlena MD Unavailable Unavailable COMMISSOOlena MD Unavailable Unavailable COMMISSOOlena MD Unavailable Unavailable COMMISSOOlena MD Unavailable Unavailable COMMISSOOlena MD Unavailable Unavailable COMMISSOOlena MD Unavailable Unavailable COMMISSOOlena MD Unavailable Unavailable COMMISSOOlena MD Unavailable Unavailable COMMISSOOlena MD Unavailable Unavailable COMMISSOOlena MD Unavailable Unavailable COMMISSOOlena MD Unavailable Unavailable COMMISSOOlena MD Unavailable Unavailable COMMISSOOlena MD Unavailable Unavailable COMMISSOOlena MD Unavailable Unavailable COMMISSOOlena MD Unavailable Unavailable COMMOlena CERVANTES MD Unavailable Unavailable COMMISSOlena Das MD Unavailable Unavailable COMMOlena CERVANTES MD Unavailable Unavailable COMMISSOOlena MD Unavailable Unavailable COMMISSOOlena MD Unavailable Unavailable COMMADINOOlena MD Unavailable Unavailable COMMADINOOlena MD Unavailable Unavailable COMMISSOlena Das MD Unavailable Unavailable COMMISSOOlena MD Unavailable Unavailable COMMISSOlena Das MD Unavailable Unavailable COMMISSOOlena MD Unavailable Unavailable COMMISSOlena Das MD Unavailable Unavailable COMMISSOOlena MD Unavailable Unavailable COMMISSOOlena MD Unavailable Unavailable COMMISSOOlena MD Unavailable Unavailable COMMISSOlena Das MD Unavailable Unavailable COMMISSOOlena MD Unavailable Unavailable COMMOlena CERVANTES MD Unavailable Unavailable COMMOlena CERVANTES MD Unavailable Unavailable COMMOlena CERVANTES MD Unavailable Unavailable COMMOlena CERVANTES MD Unavailable Unavailable COMMOlena CERVANTES MD Unavailable Unavailable STANBRIDGEMAINE, NAOMIE REFRIGERATOR MOVER Unavailable Unavaila ble STANBRIDGEMAINE, NAOMIE REFRIGERATOR MOVER Unavailable Unavaila ble STANBRIDGEMAINE, NAOMIE REFRIGERATOR MOVER Unavailable Unavaila ble STANBRIDGEMAINE, NAOMIE REFRIGERATOR MOVER Unavailable Unavaila ble STANBRIDGEMAINE, NAOMIE REFRIGERATOR MOVER Unavailable Unavaila ble STANBRIDGEMAINE, NAOMIE REFRIGERATOR MOVER Unavailable Unavaila ble STANBRIDGEMAINE, NAOMIE REFRIGERATOR MOVER Unavailable Unavaila ble STANBRIDGEMAINE, NAOMIE REFRIGERATOR MOVER Unavailable Unavaila ble STANBRIDGEMAINE, NAOMIE REFRIGERATOR MOVER Unavailable Unavaila ble STANBRIDGEMAINE, NAOMIE REFRIGERATOR MOVER Unavailable Unavaila ble RICARDO HOLLINS MD Unavailable Unavailable RICARDO HOLLINS MD Unavailable Unavailable RICARDO HOLLINS MD Unavailable Unavailable RICARDO HOLLINS MD Unavailable Unavailable RICARDO HOLLINS MD Unavailable Unavailable RICARDO HOLLINS MD Unavailable Unavailable RICARDO HOLLINS MD Unavailable Unavailable RICARDO HOLLINS MD Unavailable Unavailable RICARDO HOLLINS MD Unavailable Unavailable RICARDO HOLLINS MD Unavailable Unavailable RICARDO HOLLINS MD Unavailable Unavailable RICARDO HOLLINS MD Unavailable Unavailable RICARDO HOLLINS MD Unavailable Unavailable RICARDO HOLLINS MD Unavailable Unavailable RICARDO HOLLINS MD Unavailable Unavailable RICARDO HOLLINS MD Unavailable Unavailable RICARDO HOLLINS MD Unavailable Unavailable RICARDO HOLLINS MD Unavailable Unavailable HOLLINSRICARDO FLOWERS MD Unavailable Unavailable HOLLINSRICARDO MD Unavailable Unavailable HOLLINSRICARDO FLOWERS MD Unavailable Unavailable HOLLINSRICARDO MD Unavailable Unavailable HOLLINSRICARDO MD Unavailable Unavailable HOLLINSRICARDO MD Unavailable Unavailable HOLLINSRICARDO MD Unavailable Unavailable HOLLINSRICARDO MD Unavailable Unavailable HOLLINSRICARDO MD Unavailable Unavailable HOLLINSRICARDO MD Unavailable Unavailable HOLLINSRICARDO MD Unavailable Unavailable HOLLINSRICARDO MD Unavailable Unavailable Daisha ECHEVARRIA MD Unavailable Unavailable Daisha ECHEVARRIA MD Unavailable Unavailable Daisha ECHEVARRIA MD Unavailable Unavailable Daisha ECHEVARRIA MD Unavailable Unavailable Daisha ECHEVARRIA MD Unavailable Unavailable Daisha ECHEVARRIA MD Unavailable Unavailable Daisha ECHEVARRIA MD Unavailable Unavailable Daisha ECHEVARRIA MD Unavailable Unavailable Daisha ECHEVARRIA MD Unavailable Unavailable Daisha ECHEVARRIA MD Unavailable Unavailable Daisha ECHEVARRIA MD Unavailable Unavailable Daisha ECHEVARRIA MD Unavailable Unavailable Daisha ECHEVARRIA MD Unavailable Unavailable Daisha ECHEVARRIA MD Unavailable Unavailable Daisha ECHEVARRIA MD Unavailable Unavailable Daisha ECHEVARRIA MD Unavailable Unavailable Daisha ECHEVARRIA MD Unavailable Unavailable Daisha ECHEVARRIA MD Unavailable Unavailable Daisha ECHEVARRIA MD Unavailable Unavailable Daisha ECHEVARRIA MD Unavailable Unavailable Daisha ECHEVARRIA MD Unavailable Unavailable Daisha ECHEVARRIA MD Unavailable Unavailable Daisha ECHEVARRIA MD Unavailable Unavailable Daisha ECHEVARRIA MD Unavailable Unavailable Daisha ECHEVARRIA MD Unavailable Unavailable Daisha ECHEVARRIA MD Unavailable Unavailable Daisha ECHEVARRIA MD Unavailable Unavailable Daisha ECHEVARRIA MD Unavailable Unavailable Daisha ECHEVARRIA MD Unavailable Unavailable Daisha ECHEVARRIA MD Unavailable Unavailable Daisha ECHEVARRIA MD Unavailable Unavailable Daisha ECHEVARRIA MD Unavailable Unavailable Daisha ECHEVARRIA MD Unavailable Unavailable Daisha ECHEVARRIA MD Unavailable Unavailable Daisha ECHEVARRIA MD Unavailable Unavailable Daisha ECHEVARRIA MD Unavailable Unavailable Daisha ECHEVARRIA MD Unavailable Unavailable Daisha ECHEVARRIA MD Unavailable Unavailable Daisha ECHEVARRIA MD Unavailable Unavailable Daisha ECHEVARRIA MD Unavailable Unavailable Daisha ECHEVARRIA MD Unavailable Unavailable Daisha ECHEVARRIA MD Unavailable Unavailable Daisha ECHEVARRIA MD Unavailable Unavailable Daisha ECHEVARRIA MD Unavailable Unavailable Daisha ECHEVARRIA MD Unavailable Unavailable Daisha ECHEVARRIA MD Unavailable Unavailable Daisha ECHEVARRIA MD Unavailable Unavailable Daisha ECHEVARRIA MD Unavailable Unavailable Daisha ECHEVARRIA MD Unavailable Unavailable HAHER, R LORENZO MD Unavailable Unavailable HAHER, R LORENZO MD Unavailable Unavailable HAHER, R LORENZO MD Unavailable Unavailable HAHER, R LORENZO MD Unavailable Unavailable HAHER, R LORENZO MD Unavailable Unavailable HAHER, R LORENZO MD Unavailable Unavailable HAHER, R LORENZO MD Unavailable Unavailable HAHER, R LORENZO MD Unavailable Unavailable HAHER, R LORENZO MD Unavailable Unavailable HAHER, R LORENZO MD Unavailable Unavailable HAHER, R LORENZO MD Unavailable Unavailable HAHER, R LORENZO MD Unavailable Unavailable HAHER, R LORENZO MD Unavailable Unavailable HAHER, R LORENZO MD Unavailable Unavailable HAHER, R LORENZO MD Unavailable Unavailable HAHER, R LORENZO MD Unavailable Unavailable HAHER, R LORENZO MD Unavailable Unavailable HAHER, R LORENZO MD Unavailable Unavailable HAHER, R LORENZO MD Unavailable Unavailable HAHER, R LORENZO MD Unavailable Unavailable HAHER, R LORENZO MD Unavailable Unavailable HAHER, R LORENZO MD Unavailable Unavailable HAHER, R LORENZO MD Unavailable Unavailable LETTIERE, A OMID PA Unavailable Unavailable LETTIERE, A OMID PA Unavailable Unavailable LETTIERE, A OMID PA Unavailable Unavailable LETTIERE, A OMID PA Unavailable Unavailable LETTIERE, A OMID PA Unavailable Unavailable LETTIERE, A OMID PA Unavailable Unavailable LETTIERE, A OMID PA Unavailable Unavailable LETTIERE, A OMID PA Unavailable Unavailable LETTIERE, A OMID PA Unavailable Unavailable LETTIERE, A OMID PA Unavailable Unavailable LETTIERE, A OMID PA Unavailable Unavailable LETTIERE, A OMID PA Unavailable Unavailable LETTIERE, A OMID PA Unavailable Unavailable LETTIERE, A OMID PA Unavailable Unavailable LETTIERE, A OMID PA Unavailable Unavailable LETTIERE, A OMID PA Unavailable Unavailable LETTIERE, A OMID PA Unavailable Unavailable LETTIERE, A OMID PA Unavailable Unavailable LETTIERE, A OMID PA Unavailable Unavailable LETTIERE, A OMID PA Unavailable Unavailable LETTIERE, A OMID PA Unavailable Unavailable LETTIERE, A OMID PA Unavailable Unavailable LETTIERE, A OMID PA Unavailable Unavailable LETTIERE, A OMID PA Unavailable Unavailable LETTIERE, A OMID PA Unavailable Unavailable LETTIERE, A OMID PA Unavailable Unavailable LETTIERE, A OMID PA Unavailable Unavailable LETTIERE, A OMID PA Unavailable Unavailable LETTIERE, A OMID PA Unavailable Unavailable Re-disclosure Warning The records that you are about to access may contain information from federally-assisted alcohol or drug abuse programs. If such information is present, then the following federally mandated warning applies: This information has been disclosed to you from records protected by federal confidentiality rules (42 CFR part 2). The federal rules prohibit you from making any further disclosure of this information unless further disclosure is expressly permitted by the written consent of the person to whom it pertains or as otherwise permitted by 42 CFR part 2. A general authorization for the release of medical or other information is NOT sufficient for this purpose. The Federal rules restrict any use of the information to criminally investigate or prosecute any alcohol or drug abuse patient.The records that you are about to access may contain highly sensitive health information, the redisclosure of which is protected by Article 27-F of the [facility] Public Health law. If you continue you may have access to information: Regarding HIV / AIDS; Provided by facilities licensed or operated by the [facility] Office of Mental Health; or Provided by the [facility] Office for People With Developmental Disabilities. If such information is present, then the following [facility] mandated warning applies: This information has been disclosed to you from confidential records which are protected by state law. State law prohibits you from making any further disclosure of this information without the specific written consent of the person to whom it pertains, or as otherwise permitted by law. Any unauthorized further disclosure in violation of state law may result in a fine or penitentiary sentence or both. A general authorization for the release of medical or other information is NOT sufficient authorization for further disc losure. Family History Family Member Name Family Member Gender Family Member Status Date o f Status Description Data Source(s) Unknown Male Problem MEDENT ([facility]) Unknown Female Problem [facility] ([facility]) Encounters Encounter Providers Location Date Indications Data Source(s ) Unknown [address] [facility] [place] [address] 03/09/2020 12:00:00 AM EST eCW1 ([facility]) Outpatient Attender: OMID fraire 2020 08:30:00 AM EST [facility] ([facility] Unknown [address] [facility] [place] [address] 01/17/2020 12:00:00 AM EST eCW1 ([facility]) Unknown [address] [facility] [place] [address] 01/03/2020 12:00:00 AM EST eCW1 ([facility]) Unknown [address] [facility] [place] [address] 12/22/2019 12:00:00 AM EDT eCW1 ([facility]) [facility] [address] [place] [address] [place] [address] 10/04/2019 12:00:00 AM EDT eCW1 ([facility]) Outpatient [address] [place] [address] Y [address] 08/03/2019 12:00:00 AM EDT eCW1 ([facility]) Unknown [address] [place] [address] [place] [address] 08/02/2019 12:00:00 AM EDT eCW1 [facility] Recurring Patient Attender: NAOMIE CROWE FNPReferrer: LORENZO ECHEVARRIA MD 07/27/2019 01:42:01 PM EDT [facility] [address] [address] 06/30/2019 12:00:00 AM EDT eCW1 ([facility]) [address] [place] [address] 06/29/2019 12:00:00 AM EDT eCW1 ([facility]) [address] [place] [address] 06/10/2019 12:00:00 AM EDT eCW1 ([facility]) [address] [place] [address] 04/27/2019 12:00:00 AM EST eCW1 ([facility]) [address] [place] [address] 04/26/2019 12:00:00 AM EST eCW1 ([facility]) [address] [place] [address] 04/26/2019 12:00:00 AM EST eCW1 ([facility]) [address] [address] 04/21/2019 12:00:00 AM EST eCW1 ([facility]) Outpatient 04/20/2019 07:11:00 AM EST [facility] Outpatient Attender: RICARDO HOLLINS MD Physical Therapy 09:45:00 AM EST MEDENT ([facility]) OFFICE OUTPATIENT NEW 30 MINUTES Attender: RICARDO HOLLINS MD Ph ysical Therapy 04/07/2019 05:00:00 PM EST [facility] ([facility] [address] [address] 04/07/2019 12:00:00 AM EST eCW1 ([facility]) [address] [address] 03/15/2019 12:00:00 AM EST eCW1 ([facility]) [address] [address] 03/15/2019 12:00:00 AM EST eCW1 ([facility]) [address] [address] 03/04/2019 12:00:00 AM EST eCW1 ([facility]) Recurring Patient Attender: MONICA BRIONES MDReferrer: Charlotte durbin MD 01/14/2019 01:52:35 PM EST [facility] Recurring Patient Attender: MONICA BRIONES MDReferrer: ANNALISA BOND MD 01/14/2019 01:42:47 PM EST [facility] Recurring Patient Attender: MONICA BRIONES MDReferrer: ANNALISA BOND MD 01/14/2019 11:46:27 AM EST [facility] Immunizations Vaccine Date Status Description Data Source(s) Zoster 50mcg/0.5mL (Shingrix) 08/03/2019 03:22:00 PM EDT completed eCW1 ([facility]) Zoster 50mcg/0.5mL (Shingrix) 08/03/2019 03:22:00 PM EDT completed eCW1 ([facility]) Zoster 50mcg/0.5mL (Shingrix) 08/03/2019 03:22:00 PM EDT completed eCW1 ([facility]) Zoster 50mcg/0.5mL (Shingrix) 08/03/2019 03:22:00 PM EDT completed eCW1 ([facility]) Zoster 50mcg/0.5mL (Shingrix) 08/03/2019 03:22:00 PM EDT completed eCW1 ([facility]) Zoster 50mcg/0.5mL (Shingrix) 08/03/2019 03:22:00 PM EDT completed eCW1 ([facility]) Zoster 50mcg/0.5mL (Shingrix) 04/26/2019 02:39:00 PM EST completed eCW1 ([facility]) Zoster 50mcg/0.5mL (Shingrix) 04/26/2019 02:39:00 PM EST completed eCW1 ([facility]) Zoster 50mcg/0.5mL (Shingrix) 04/26/2019 02:39:00 PM EST completed eCW1 ([facility]) Zoster 50mcg/0.5mL (Shingrix) 04/26/2019 02:39:00 PM EST completed eCW1 ([facility]) Zoster 50mcg/0.5mL (Shingrix) 04/26/2019 02:39:00 PM EST completed eCW1 ([facility]) Zoster 50mcg/0.5mL (Shingrix) 04/26/2019 02:39:00 PM EST completed eCW1 ([facility]) Zoster 50mcg/0.5mL (Shingrix) 04/26/2019 02:39:00 PM EST completed eCW1 ([facility]) IIV3. This is one of two codes replacing CVX 15, which is being retired. 03/27/2019 03:25:00 PM EST completed eCW1 ([facility]) IIV3. This is one of two codes replacing CVX 15, which is being retired. 03/27/2019 03:25:00 PM EST completed eCW1 ([facility]) IIV3. This is one of two codes replacing CVX 15, which is being retired. 03/27/2019 03:25:00 PM EST completed eCW1 ([facility]) IIV3. This is one of two codes replacing CVX 15, which is being retired. 03/27/2019 03:25:00 PM EST completed eCW1 ([facility]) pneumococcal polysaccharide PPV23 03/27/2019 03:24:00 PM EST comple sandra eCW1 ([facility]) pneumococcal polysaccharide PPV23 03/27/2019 03:24:00 PM EST comple sandra eCW1 ([facility]) pneumococcal polysaccharide PPV23 03/27/2019 03:24:00 PM EST comple sandra eCW1 ([facility]) pneumococcal polysaccharide PPV23 03/27/2019 03:24:00 PM EST comple sandra eCW1 ([facility]) Insurance Providers Payer name Policy type / Coverage type Policy ID Covered democrat ID Covered democrat's relationship to [employer] Information MEDICARE COMPLETE [id number] SP [id number] MEDICARE COMPLETE [id number] SP [id number] [facility] P [id number] SELF [id number] MEDICARE COMPLETE[facility] O [id number] S [id number] MEDICARE COMPLETE [id number] SP [id number] [facility] Medicare Complete F [id number] SELF [id number] [facility] Jurisdiction A [facility] C [id number] SELF [id number] Medicare C [id number] SELF [id number] [facility] MEDICARE [id number] S [id number] [facility] [id number] S [id number] [facility] [id number] S [id number] [place]ICARE - [place] [id number] S [id number] ANSI-Medicare Part B [id number]-zh8k-[id number]-ybq1-5k63-px5q-[id number] [facility] Commercial [id number] [facility] [id number] ANSI-Medicare Part B [id number]-130r-[id number]-3dhk-661u-[id number] ANSI-Medicare Part B [id number]-n77w-1m96-1wgf-[id number] 201fs1b7-q92p-3b89-4xbv-3bw850k69z16 ANSI-Medicare Part B [id number]-[id number] [id number]-jf20-98j68x1ev707 ANSI-Medicare Part B [id number]-[id number]-0349-[id number] ANSI-Medicare Part B [id number]-k91g-[id number] 9jf91225-13k9-699u-v06h-23cw7a2546tj ANSI-Medicare Part B [id number]-i094ih92l537 [id number]-l815nr00m400 ANSI-Medicare Part B [id number]-y164-0220-572t-5f5c8mn2459s jr64249f-n970-2174-562z-2k6e7at3218j ANSI-Medicare Part B 1iz7ru8k-36bu-7c6j-s8h1-98y5c6fz32ok 2od8jf8o-75br-5p8j-x5f2-37n4l0sk02cb ANSI-Medicare Part B [id number]-971e-5pp238328m64 83pa7365-6ei2-625r-630i-3gl914506r75 ANSI-Commercial 468mfp69-7j03-2821-3bn4-61hr9b7z1e8m 296spw14-7p39-2699-4cx2-18nr8h4h4w7x ANSI-Medicare Part B emtr2i58-p3qj-9w57-agiu-ys43p75219t7 xgpt2x28-h5jb-7q01-zyfn-ls62g80370u1 ANSI-Medicare Part B [id number]-u715-4r15e2806m57 08446x75-9ci4-8j68-o025-2g76t1160d09 ANSI-Medicare Part B [id number]-70c2-m2j71m1zc889 [id number]-87v7-u5i20q9xe530 ANSI-Commercial 4r262w57-6565-82mi-7xy2-un31zv74g47t 6q997v79-2995-84yv-7xl6-dv06uo29m49x ANSI-Commercial 3f46659q-jz37-1086-t78l-4tx807s94kq4 1l03011k-gr00-1639-n72h-0hx917f16ie8 ANSI-Medicare Part B [id number]-07fn-ibjj-[id number] 6532v285-07pl-14iz-fppj-10u11e837660 ANSI-Medicare Part B ynlc0jl0-i1vr-58c0-436g-[id number] jtit5nq1-q6ug-74v1-692u-t44987283682 ANSI-Medicare Part B 4510is50-448g-5j86-w44p-82005t51w10m 1612km33-856n-2m16-g46n-32174l48q38y ANSI-Medicare Part B 9oc0y1v7-u183-7817-9j67-h41864m5o91u 8ia8z7k6-k387-0676-8h64-d86946k0s68j ANSI-Commercial pxh6f87q-j5v7-941b-08ic-836d9824t7l9 xxk3q55p-z1l5-659y-69gs-850v1071k8b2 ANSI-Medicare Part B id83rpq9-41v8-9gs2-rp46-d6nwq699o8c6 aq06opc6-83a0-7xd6-sp92-k5lsx393f7n7 ANSI-Medicare Part B 616xxs62-vb02-121r-y25p-aiy6843578p9 344okx25-ep93-479q-c01n-ldc9417911h1 ANSI-Commercial 3k5a2f64-0418-009i-8l60-7794p289dw49 4k8q7r87-1809-678l-2w05-7675n792cx16 ANSI-Medicare Part B 4wh7xk6d-s383-7xg3-1247-2xdav505853p 3af3zd4i-p530-2dg6-2025-0ioli160315x ANSI-Medicare Part B 86v777a8-yg71-8t34-3x2l-3mml711843s5 57d036i3-cn41-7t50-9u3p-2ykk050674i6 ANSI-Commercial p67h75l1-018t-1eyz-031q-i8m70u7374xw k31s75a9-503i-8gbu-878t-z9d92i1642dc ANSI-Medicare Part B i2lc8841-9055-145p-e484-4a5k173js4r0 e3gg9158-6213-919v-a793-2m5k267ay9b1 ANSI-Medicare Part B h1451hmb-5368-1fh4-vz9f-y6w9lf48ce82 h2607fes-9826-1lh7-zw4h-q7r1dm54mg37 ANSI-Commercial 502xg3at-38j6-9768-c129-8od771755446 182sw1zp-00j1-2844-c166-9zk312650926 MEDICARE COMPLETE [id number] SP [id number] MEDICARE COMPLETE [id number] SP [id number] ANSI-Medicare Part B [id number]-q4w6-vmo5skyu3348 9s662j91-29n0-9092-d4f1-ick6nbwo3393 ANSI-Commercial 8l57f5i1-2n8a-6k1g-s077-s81n27029v12 5z58b6i6-1k3l-8o8o-z680-k01z95159l06 ANSI-Medicare Part B 880179xt-1650-010l-ebam-l073jhuxj274 483605vb-3207-742x-alug-k859stdkp485 [facility] OPTIONS [id number] SP [id number] MEDICARE [id number] SP [id number] A ANSI-Medicare Part B [id number]-73e7-ehl44vn7j97m 2a7871r5-2865-795w-67c9-kky42nj1y10a ANSI-Commercial 6891dcco-re4t-3r66xe4k-5u05-48xg-7911e249a46a 9430racf-mf1t-3s36rd0d-3a54-94lf-3417r463i71i ANSI-Medicare Part B [id number]-azx3-46ym-w1p8-yvd67230f0w5 u9543606-qan9-97ch-c5z3-sjv90704f7r6 ANSI-Medicare Part B [id number]-r9a0-j04pph958189 y5ve0069-7528-6378-r5u2-c09bfv752536 ANSI-Medicare Part B 4wq2g80d-3rw7-2141-1q41-2tgn770oh123 3nr3t22i-8cn4-3458-6v97-5mbj655da828 ANSI-Commercial 4d41dg13-ip1l-7131-0ml7-73es561kg026 3p41px48-qa1j-4799-0ff4-60xk183vp072 ANSI-Medicare Part B [id number]-0w2k-r8x2-653776lry5p8 m0706r06-268d-3c6k-k0a0-269721stk2r1 ANSI-Medicare Part B 746235b6-y0m0-5k66-s707-6i053g0ux02l 039394o7-o4b7-4m08-p428-0y107k4kx73i ANSI-Commercial 3v608978-5s50-7x9l-7584-e6l0w3k35007 0t190574-5z45-8i6w-7220-a8l5u7g68765 ANSI-Commercial 31h243c7-12u8-277o-42k9-skw11z4w9qg0 94x720n2-21j1-416m-87d2-yuw83u3h0ir1 ANSI-Medicare Part B qav36053-51a4-96w3-bd90-7d1u41i27skl tem61280-92s7-76g9-wh36-4q9z63t91imp ANSI-Medicare Part B 968ci18e-t3yw-929d-i1x4-16n3sh817a2j 842sn16h-n2zc-164y-e2t3-33v3cq283m2p ANSI-Medicare Part B 6mo7yr52-i9o3-0ars-yzlc-283x53t58erc 8mb2pn86-i7p1-6jto-lvsv-107m83w18xig ANSI-Medicare Part B 8x7c2j4s-6x30-3xq1-mdte-45p2gl9g2563 1b3h8r1i-5j75-5cl1-hzle-43o0eh2q6084 ANSI-Commercial o468c936-08x7-12r3-g602-g9c971v02830 r380n617-36e6-67p4-n079-b5y245m94388 MEDICARE COMPLETE [id number] ANSI-Commercial 01876650-3f22-97o4-3298-iusx192g2ixs 42261549-0w63-18w2-4290-oxux634g0fuu ANSI-Medicare Part B 157l2eq8-1f81-3mtc-0634-3d26x36j95n8 640k8qb7-0i83-9jug-2217-6b63r87a81s0 ANSI-Medicare Part B 80wo9f7t-14kl-5554-b68w-k9378c6dp5zx 30wd8e0g-89sv-1058-l28j-i7811m1gb8yv ANSI-Medicare Part B 44gx4997-z193-1i36-p25n-5215ewd61mb5 61ew5264-b219-5l06-n06x-0094wva10fy9 ANSI-Medicare Part B f62a7535-1c71-4s21-4u3k-03en78b9135j e31n2209-0a38-2h21-3j0w-63yr26e7358d ANSI-Commercial 5203763j-ujn9-2082-m6m4-w93p89n5e455 3492781s-wgj3-6782-d8q2-u88v99y2l783 ANSI-Medicare Part B 8rz08hl8-3l20-7724-t048-60vcv0l4p652 6yy67gw6-3t20-1985-m586-46kss0q0z308 ANSI-Medicare Part B 4l70sun6-5rxk-9f8m-ysrk-u2ttfw64c0l1 9x02ija1-3zxp-8e1x-npnz-q7lraz67l6r2 ANSI-Commercial 7192p07y-5v22-9ia5-3883-4307ef8q43p3 3119j83q-4c36-7jm2-0276-8890zh3v74d1 MEDICARE COMPLETE [id number] ANSI-Medicare Part B [id number]-8i7x-03a0-8242-3465896utr9c k02i082n-3r6q-42f6-9426-1860882kbc3s ANSI-Medicare Part B 73881ksg-9w27-94b2-5t40-a4601020w9d6 97938lxm-6i42-46o3-7u25-w8381673d9b4 ANSI-Commercial 6q434412-dd75-8yp8-68bp-z93w9i5dz876 2b861251-pm54-9wo4-35wf-v78a4q3ed132 ANSI-Medicare Part B [id number]-9g8u-69i9-y90o3jk50951 x0211o81-647c-3n7t-36o9-a19s7pl72488 ANSI-Medicare Part B f37arvoy-9587-566x-z7di-42732r2jo141 o93idsjg-0866-374x-h7qe-65025l6qd057 ANSI-Commercial 6n83e242-57yk-167z-5u3n-dd39u71x7az0 7v25n414-00rr-677z-4z9s-ou41w21a4mr5 ANSI-Medicare Part B 5476y5xb-e74g-8778-r3m2-64090y328k08 8421b2ry-u17i-9102-b7x8-79524c468d02 ANSI-Medicare Part B 4kv7sx47-cx0d-848u-qya3-081vo9x984mt 5bm6dh63-pk6b-250x-bjp8-834am0m387uh ANSI-Commercial 647wc033-vyt8-5e39-zc85-9e03652s4j5t 909dw515-fwv6-2s81-ko50-0s26456q6k8i [employer] (HMO) [id number] Self [id number] [employer] (HMO) [id number] Self [id number] [employer] BCBS [id number] Fina CXJ [id number] [employer] BLUE SHIELD HEA [id number] S [id number] [employer] Maintenance [employer] (HMO) [id number] Self [id number] [employer] Maintenance [employer] (HMO) Se lf [place] F [id number] SELF [id number] [place] [id number] 0 [id number] UNAVAILABLE UNAVA[employer] COMPENSATION BELLA POMCO RAVINDER EMP/DEP O [id number] S [id number] [address] THOMAS L UNAVAILABLE [id number] UNAV AILABLE [id number] Self [id number] Problems, Conditions, and Diagnoses Code Display Name Description Problem Type Effective Dates Data Source(s) 92211030 Essential hypertension Essential hypertension Problem 04/16/2019 12:00:00 AM EST MEDENT ([facility]) [id number] Pure hypercholesterolemia Pure hypercholesterolemia Pr oblem 04/16/2019 12:00:00 AM EST [facility]ENT ([facility]) F43.21 [id number] Grief reaction Problem 03/04/2019 12:00:00 A M EST eCW1 ([facility]) F43.21 [id number] Grief reaction Problem 03/04/2019 12:00:00 A M EST eCW1 ([facility]) Surgeries/Procedures Procedure Description Date Indications Data Source(s) Immunization: Shingrix 50mcg/0.5mL IM (Zoster) 020 12:00:00 AM EDT eCW1 ([facility]) RADIOLOGIC EXAM KNEE COMPLETE 4/MORE VIEWS 05/11/2019 12:00:00 AM EDT MEDENT ([facility]) RADEX ANKLE COMPLETE MINIMUM 3 VIEWS 05/11/2019 12:00: 00 AM EDT [facility] ([facility]) Shingrix 50mcg/0.5mL (Zoster) 04/26/2019 12:00:[address] eCW1 ([facility]) IMMUNIZATION ADMIN 04/26/2019 12:00:00 AM EST eCW1 ([facility]) CLTX PROX FIBULA/SHFT FX W/O MANJ 04/16/2019 12:00:00 AM EST [facility] ([facility]) RADIOLOGIC EXAMINATION TIBIA & FIBULA 2 VIEWS 04/16/19 20 12:00:00 AM EST [facility] ([facility]) X-Ray Ankle Ap & Lateral 2 Views 04/16/2019 12:00:00 A M EST [facility]ENT ([facility]) RADEX ANKLE COMPLETE MINIMUM 3 VIEWS 04/16/2019 12:00: 00 AM EST MEDENT ([facility]) Office Visit, Est Pt., Level 4 PC 03/04/2019 12:00:00 AM EST eCW1 ([facility]) Office Visit, Est Pt., Level 2 FC 03/04/2019 12:00:00 AM EST eCW1 ([facility]) Results ID Date Data Source [id number] 2020 12:00:00 AM EST [facility] Name Value Range Interpretation Code Description Data Honey rce(s) Supporting Document(s) SARS-CoV2 Rapid Antigen Positive [facility] This lab was reported by Jose David Llanes. ID Date Data Source PTH INTACT 03/15/2019 12:00:00 AM EST eCW1 ([facility]) Name Value Range Interpretation Code Description Data Honey rce(s) Supporting Document(s) 69.6 18.5-88.0 PTH INTACT eCW1 ([facility]) ID Date Data Source VITAMIN D 25-HYDROXY 03/15/2019 12:00:00 AM EST [facility] Name Value Range Interpretation Code Description Data Honey rce(s) Supporting Document(s) 34.7 30.0-100.0 TOTAL 25(OH) VITAMIN D eC W1 ([facility]) ID Date Data Source LIPID PANEL (CARDIAC RISK) 03/15/2019 12:00:00 AM EST eCW1 ( [facility]) Name Value Range Interpretation Code Description Data Honey rce(s) Supporting Document(s) Cholesterol [Moles/volume] in Serum or Plasma 158 <200 CHOLESTEROL LEVEL eCW1 ([facility]) Triglyceride [Mass/volume] in Serum or Plasma by calculation 145 <150 TRIGLYCERIDES LEVEL eCW1 ([facility]) Cholesterol in HDL [Moles/volume] in Serum or Plasma 64 >40 HDL CHOLESTEROL eCW1 ([facility]) 2.468 <5 CHOLESTEROL RISK RATIO eCW1 ([facility]) Cholesterol in LDL [Mass/volume] in Serum or Plasma by calculation 65 <100 LDL CHOLESTEROL eCW1 ([facility]) 94 NON-HDL-C eCW1 ([facility]) ID Date Data Source [id number] 03/15/2019 12:00:00 AM EST eCW1 ([facility]) Name Value Range Interpretation Code Description Data Honey rce(s) Supporting Document(s) Hemoglobin A1c/Hemoglobin.total in Blood 5.4 HEMOGLOBIN A1c eCW1 ([facility]) ID Date Data Source Comprehensive Metabolic Profile (CMP) 03/15/2019 12:00:00 AM EST eCW1 ([facility]) Name Value Range Interpretation Code Description Data Honey rce(s) Supporting Document(s) 93 70-100 GLUCOSE, FASTING eCW1 ([facility]) 12 7-18 BLOOD UREA NITROGEN eCW1 ([facility]) 0.53 0.55-1.30 CREATININE FOR GFR eCW1 ([facility]) > 60.0 >45 GLOMERULAR FILTRATION RATE eCW 1 ([facility]) 144 136-145 SODIUM LEVEL eCW1 ([facility]) 4.2 3.5-5.1 POTASSIUM SERUM eCW1 ([facility]) 111 98-107 CHLORIDE LEVEL eCW1 ([facility]) 30 21-32 CARBON DIOXIDE LEVEL eCW1 ([facility]) 14 7-37 AST/SGOT eCW1 ([facility]) 21 12-78 ALT/SGPT eCW1 ([facility]) 8.8 8.8-10.2 CALCIUM LEVEL eCW1 ([facility]) 3.9 3.2-5.2 ALBUMIN eCW1 ([facility]) 0.5 0.2-1.0 BILIRUBIN,TOTAL eCW1 ([facility]) 6.7 6.4-8.2 TOTAL PROTEIN eCW1 ([facility]) 50 45-117 ALKALINE PHOSPHATASE eCW1 ([facility]) 1.39 1.00-1.93 ALBUMIN/GLOBULIN RATIO eCW1 ([facility]) ID Date Data Source CBC with Differential 03/15/2019 12:00:00 AM EST eCW1 ([facility]) Name Value Range Interpretation Code Description Data Honey rce(s) Supporting Document(s) 4.1 4.0-10.0 WHITE BLOOD COUNT eCW1 [facility] 4.75 4.00-5.40 RED BLOOD COUNT eCW1 ([facility]) 43.5 36.0-47.0 HEMATOCRIT eCW1 ([facility]) 13.9 12.0-15.5 HEMOGLOBIN eCW1 ([facility]) 91.6 80.0-96.0 MEAN CORPUSCULAR VOLUME e CW1 ([facility]) 29.3 27.0-33.0 MEAN CORPUSCULAR HEMOGLOB IN eCW1 ([facility]) 32.0 32.0-36.5 MEAN CORPUSCULAR HGB CONC eCW1 ([facility]) 13.7 11.5-14.5 RED CELL DISTRIBUTION WID TH eCW1 ([facility]) 248 150-450 PLATELET COUNT, AUTOMATED eCW1 ([facility]) 57.3 36.0-66.0 NEUTROPHILS % eCW1 ([facility]) 31.6 24.0-44.0 LYMPH % eCW1 ([facility]) 8.0 0.0-5.0 MONO % eCW1 ([facility]) 1.9 0.0-3.0 EOS % eCW1 ([facility]) 1.0 0.0-1.0 BASO % eCW1 ([facility]) 2.4 1.5-8.5 NEUTROPHILS # eCW1 ([facility]) 1.3 1.5-5.0 LYMPH # eCW1 ([facility]) 0.3 0.0-0.8 MONO # eCW1 ([facility]) 0.1 0.0-0.5 EOS # eCW1 ([facility]) 0.0 0.0-0.2 BASO # eCW1 ([facility]) Procedure Social History Code Duration Value Status Description Data Source(s ) Smoking 02/03/2020 12:00:00 AM EST Former Smoker completed Former Smoker eCW1 ([facility]) Smoking 04/16/2019 12:00:00 AM EST Patient is a former smoker completed Patient is a former smoker MEDENT ([facility]) Smoking 03/04/2019 12:00:00 AM EST Former Smoker completed Former Smoker eCW1 ([facility]) Smoking 03/04/2019 12:00:00 AM EST Former Smoker completed Former Smoker eCW1 ([facility]) Smoking 03/04/2019 12:00:00 AM EST Former Smoker completed Former Smoker eCW1 ([facility]) Smoking 03/04/2019 12:00:00 AM EST Former Smoker completed Former Smoker eCW1 ([facility]) Smoking 03/04/2019 12:00:00 AM EST Former Smoker completed Former Smoker eCW1 ([facility]) Vital Signs ID Date Data Source UNK Name Value Range Interpretation Code Description Data Source(s) Body weight 168.00 [lb_av] 168.00 [lb_av] MEDEN T ([facility]) Body temperature 97.0 [degF] 97.0 [degF] MEDENT ([facility]) Oxygen saturation in Arterial blood by Pulse oximetry 97 % 97 % MEDENT ([facility]) Respiratory rate 14 /min 14 /min MEDENT ( [facility]) Heart rate 88 /min 88 /min MEDENT ([facility]) Diastolic blood pressure 64 mm[Hg] 64 mm[Hg] MEDENT ([facility]) Systolic blood pressure 118 mm[Hg] 118 mm[Hg] M EDENT ([facility]) Diastolic blood pressure 74 mm[Hg] 74 mm[Hg] eCW1 ([facility]) Systolic blood pressure 136 mm[Hg] 136 mm[Hg] e CW1 ([facility]) Body temperature 98.2 [degF] 98.2 [degF] eCW1 ( [facility]) Respiratory rate 18 /min 18 /min eCW1 ([facility]) Heart rate 90 /min 90 /min eCW1 ([facility]) Body mass index (BMI) [Ratio] 29.15 kg/m2 29.15 kg/m2 eCW1 ([facility]) Body height 63 [in_us] 63 [in_us] eCW1 ([facility]) Body weight Measured 164.6 [lb_av] 164.6 [lb_av ] W1 ([facility])
[2020-03-10] MEDS ORDERED: NS 1,000 ML IV ONE (12:15)
[2020-03-10] MEDS ORDERED: POTASSIUM CHLORIDE 10 MEQ SR TABLET PO ONE (13:15)
[2020-03-10] MEDS ORDERED: NS 1,000 ML IV SCH (14:03)
[2020-03-10] MEDS ORDERED: EPINEPHrine INJ 1 MG/ML 1ML AMP IM PRN (14:15)
[2020-03-10] MEDS ORDERED: methylPREDNISolone 125MG 2ML VIAL IV PRN (14:15)
[2020-03-10] MEDS ORDERED: ALBUTEROL SULFATE 2.5 MG/0.5 ML INH NEB SOLN INH PRN (14:15)
[2020-03-10] MEDS ORDERED: ALBUTEROL 90 MCG/ACT 8GM HFA INHALER INH PRN (14:15)
[2020-03-10] MEDS ORDERED: BAMLANIVIMAB 700 MG in NS 250 ML IV ONE (14:15)
[2020-03-10] MEDS ORDERED: diphenhydrAMINE 50MG/ML VIAL (J1200) IV PRN (14:15)
--- NOTE | 2020-03-10 14:19 | IPNPDOC ---
Text Note Date of Service The patient was seen on 03/10/20. NOTE Patient is 70 years old female with past history of COPD presented hospital with increased shortness of breath, patient was tested positive for COVID 19. Physical exam pertinent for diminished lung sounds bilaterally. Patient signed consent form for monoclonal antibiotic infusion VS,Fishbone, I+O VS, Fishbone, I+O Vital Signs Date Time Temp Pulse Resp B/P (MAP) Pulse Ox O2 Delivery O2 Flow Rate FiO2 03/10/20 12:35 03/10/20 11:55 97.7 74 20 94 Room Air MARINA ROCHA Mar 10, 2020 14:19
--- OUTSIDE RECORDS SUMMARY | 2020-03-10 14:33 | CCD ---
Author Author [facility] Organization [facility] Address Unknown Phone Unavailable Care Team Providers Care Personal Lines Insurance Agent Name Role Phone Myles BRIONES MD Unavailable [...] Unavailable ANSELMO, Myles ANDERSON MD Unavailable Unavailable ANSEMLO, Myles ANDERSON MD Unavailable Unavailable ANSELMO, Myles [...] E Charlotte MD Unavailable Unavailable Skipton, E Charltote MD Unavailable Unavailable Skipton, E Charlotte MD [...] Unavailable Unavailable COMMISSOOlena MD Unavailable Unavailable COMMISSOlena aDs MD Unavailable Unavailable COMMISSOOlena MD Unavailable Unavailable COMMISSOOlena MD Unavailable Unavailable COMMISSOOlena MD Unavailable Unavailable COMMISSOlena Das MD Unavailable Unavailable COMMISSOOlena MD Unavailable Unavailable COMMOlena CERVANTES MD Unavailable Unavailable COMMOlena CERVANTES MD Unavailable Unavailable COMMOlena CERVANTES MD Unavailable Unavailable COMMOlena CERVANTES MD Unavailable Unavailable COMMOlena CERVANTES MD Unavailable Unavailable STANBRIDGEMAINE, NAOMIE PACK MASTER Unavailable Unavaila ble STANBRIDGEMAINE, NAOMIE PACK MASTER Unavailable Unavaila ble STANBRIDGEMAINE, NAOMIE PACK MASTER Unavailable Unavaila ble STANBRIDGEMAINE, NAOMIE PACK MASTER Unavailable Unavaila ble STANBRIDGEMAINE, NAOMIE PACK MASTER Unavailable Unavaila ble STANBRIDGEMAINE, NAOMIE PACK MASTER Unavailable Unavaila ble STANBRIDGEMAINE, NAOMIE PACK MASTER Unavailable Unavaila ble STANBRIDGEMAINE, NAOMIE PACK MASTER Unavailable Unavaila ble STANBRIDGEMAINE, NAOMIE PACK MASTER Unavailable Unavaila ble STANBRIDGEMAINE, NAOMIE PACK MASTER Unavailable Unavaila ble RICARDO HOLLINS MD Unavailable Unavailable RICARDO HOLLINS MD Unavailable Unavailable RICARDO HOLLINS MD Unavailable Unavailable RICARDO HOLLINS MD Unavailable Unavailable RICARDO HOLILNS MD Unavailable Unavailable RICARDO HOLLINS MD Unavailable Unavailable RICARDO HOLLINS MD Unavailable Unavailable RICARDO HOLLINS MD Unavailable Unavailable RICARDO HLOLINS MD Unavailable Unavailable RICARDO HOLLINS MD Unavailable [...] is protected by Article 27-F of the [facility] Public Health law. If you continue you may have access to information: Regarding HIV / AIDS; Provided by facilities licensed or operated by the [facility] Office of Mental Health; or Provided by the [facility] Office for People With Developmental Disabilities. If such information is present, then the following [facility] mandated warning applies: This information has [...] law may result in a fine or shelter sentence or both. A general authorization for the release of medical or other information is NOT sufficient authorization for further disc losure. Family History Family Member Name Family Member Gender Family Member Status Date o f Status Description Data Source(s) Unknown Male Problem MEDENT ([facility]) Unknown Female Problem MEDENT ([facility]) Encounters Encounter Providers Location Date Indications Data Source(s ) Unknown [address] [facility] [place] [address] 03/09/2020 12:00:00 AM EST eCW1 ([facility]) Outpatient Attender: OMID fraire 2020 08:30:00 AM EST [facility] ([facility] Unknown [address] [facility] [place] [address] 01/17/2020 12:00:00 AM EST eCW1 ([facility]) Unknown [address] [facility] [place] [address] 01/03/2020 12:00:00 AM EST eCW1 ([facility]) Unknown [address] [facility] [place] [address] 12/22/2019 12:00:00 AM EDT eCW1 ([facility]) [facility] [address] [address] [place] [address] 10/04/2019 12:00:00 AM EDT eCW1 ([facility]) Outpatient [address] [address] Y [address] 08/03/2019 12:00:00 AM EDT eCW1 ([facility]) Unknown [address] [place] [address] [place] [address] 08/02/2019 12:00:00 AM EDT eCW1 ([facility]) Recurring Patient Attender: NAOMIE CROWE FNPReferrer: LORENZO ECHEVARRIA MD 07/27/2019 01:42:01 PM EDT [facility] [address] [address] 06/30/2019 12:00:00 AM EDT eCW1 ([facility]) [address] [place] [address] 06/29/2019 12:00:00 AM EDT eCW1 ([facility]) [address] [place] [address] 06/10/2019 12:00:00 AM EDT eCW1 ([facility]) [address] [place] [address] 04/27/2019 12:00:00 AM EST eCW1 ([facility]) [address] [place] [address] 04/26/2019 12:00:00 AM EST eCW1 ([facility]) [address] [place] [address] 04/26/2019 12:00:00 AM EST eCW1 ([facility]) [address] [place] [address] 04/21/2019 12:00:00 AM EST eCW1 ([facility]) Outpatient 04/20/2019 07:11:00 AM EST [facility] Outpatient Attender: RICARDO HOLLINS MD Physical Therapy 09:45:00 AM EST MEDENT ([facility]) OFFICE OUTPATIENT NEW 30 MINUTES Attender: RICARDO HOLLINS MD Ph ysical Therapy 04/07/2019 05:00:00 PM EST MEDENT ([facility]) [address] [address] 04/07/2019 12:00:00 AM EST eCW1 ([facility]) [address] [address] 03/15/2019 12:00:00 AM EST eCW1 ([facility]) [address] [address] 03/15/2019 12:00:00 AM EST eCW1 ([facility]) [address] [address] 03/04/2019 12:00:00 AM EST eCW1 ([facility]) Recurring Patient Attender: MONICA BRIONES MDReferrer: Charlotte durbin MD 01/14/2019 01:52:35 PM EST [facility] Recurring Patient Attender: MONICA BRIONES MDReferrer: ANNALISA BOND MD 01/14/2019 01:42:47 PM EST [facility] Recurring Patient Attender: MONICA BRIONES MDReferrer: ANNALISA BOND MD 01/14/2019 11:46:27 AM EST [facility] Immunizations Vaccine Date Status Description Data Source(s) Zoster 50mcg/0.5mL (Shingrix) 08/03/2019 03:22:00 PM EDT completed eCW1 ([facility]) Zoster 50mcg/0.5mL (Shingrix) 08/03/2019 03:22:00 PM EDT completed eCW1 ([facility]) Zoster 50mcg/0.5mL (Shingrix) 08/03/2019 03:22:00 PM EDT completed eCW1 ([facility]) Zoster 50mcg/0.5mL (Shingrix) 08/03/2019 03:22:00 PM EDT completed eCW1 ([facility]) Zoster 50mcg/0.5mL (Shingrix) 08/03/2019 03:22:00 PM EDT completed eCW1 ([facility]) Zoster 50mcg/0.5mL (Shingrix) 08/03/2019 03:22:00 PM EDT completed eCW1 ([facility]) Zoster 50mcg/0.5mL (Shingrix) 04/26/2019 02:39:00 PM EST completed eCW1 ([facility]) Zoster 50mcg/0.5mL (Shingrix) 04/26/2019 02:39:00 PM EST completed eCW1 ([facility]) Zoster 50mcg/0.5mL (Shingrix) 04/26/2019 02:39:00 PM EST completed eCW1 ([facility]) Zoster 50mcg/0.5mL (Shingrix) 04/26/2019 02:39:00 PM EST completed eCW1 ([facility]) Zoster 50mcg/0.5mL (Shingrix) 04/26/2019 02:39:00 PM EST completed eCW1 ([facility]) Zoster 50mcg/0.5mL (Shingrix) 04/26/2019 02:39:00 PM EST completed eCW1 ([facility]) Zoster 50mcg/0.5mL (Shingrix) 04/26/2019 02:39:00 PM EST completed eCW1 ([facility]) IIV3. This is one of two codes replacing CVX 15, which is being retired. 03/27/2019 03:25:00 PM EST completed eCW1 ([facility]) IIV3. This is one of two codes replacing CVX 15, which is being retired. 03/27/2019 03:25:00 PM EST completed eCW1 ([facility]) IIV3. This is one of two codes replacing CVX 15, which is being retired. 03/27/2019 03:25:00 PM EST completed eCW1 ([facility]) IIV3. This is one of two codes replacing CVX 15, which is being retired. 03/27/2019 03:25:00 PM EST completed eCW1 ([facility]) pneumococcal polysaccharide PPV23 03/27/2019 03:24:00 PM EST comple sandra eCW1 ([facility]) pneumococcal polysaccharide PPV23 03/27/2019 03:24:00 PM EST comple sandra eCW1 ([facility]) pneumococcal polysaccharide PPV23 03/27/2019 03:24:00 PM EST comple sandra eCW1 ([facility]) pneumococcal polysaccharide PPV23 03/27/2019 03:24:00 PM EST comple sandra eCW1 ([facility]) Insurance Providers Payer name Policy type / Coverage type Policy ID Covered alliance party ID Covered alliance party's relationship to wang Policy Wang Plan Information MEDICARE COMPLETE [id number] SP [id number] MEDICARE COMPLETE [id number] SP [id number] [facility] P [id number] SELF [id number] MEDICARE COMPLETE-[facility] O [id number] S [id number] MEDICARE COMPLETE [id number] SP [id number] [facility] Medicare Complete F [id number] SELF [id number] [facility] Jurisdiction A [facility] C [id number] SELF [id number] Medicare C [id number] SELF [id number] [facility] MEDICARE [id number] S [id number] [facility] [id number] S [id number] [facility] [id number] S [id number] MEDICARE - [place] [id number] S [id number] ANSI-Medicare Part B [id number] [facility]/Medicare Commercial [id number] [facility] [id number] ANSI-Medicare Part B [id number] ANSI-Medicare Part B [id number] ANSI-Medicare Part B [id number] ANSI-Medicare Part B [id number] ANSI-Medicare Part B [id number] ANSI-Medicare Part B [id number] ANSI-Medicare Part B [id number] ANSI-Medicare Part B [id number]-91jq-[id number]-[id number] ANSI-Medicare Part B [id number] ANSI-Commercial [id number] 080ppk23-5c90-1758-5cq0-76vj4g9c8d7b ANSI-Medicare Part B [id number]-s8ej-4x14-ejnu-[id number] ANSI-Medicare Part B [id number] ANSI-Medicare Part B [id number]-85k2-[id number] ANSI-Commercial [id number]-4ch4-bk53os73w90u 0y147c52-2811-28bx-9gc8-fe77zw52p09k ANSI-Commercial [id number]-xn85-4618-n20t-[id number] [id number]-wu16-5782-h49v-9vt405h89zq5 ANSI-Medicare Part B [id number]-[id number] ANSI-Medicare Part B [id number]-b5st-[id number] ANSI-Medicare Part B [id number]-[id number] ANSI-Medicare Part B [id number]-v046-8673-5u50-[id number] ANSI-Commercial awq4w05y-g5i0-215d-69su-106y3375a0h3 alz8g17i-q6t0-261p-27jf-600c1525h9m3 ANSI-Medicare Part B [id number] bd89jam6-72g4-7uc4-ea65-o8ktb962v0v7 ANSI-Medicare Part B [id number]-cv48-889w-u99l-[id number] ANSI-Commercial 6z1r0z50-7577-272w-4e86-7744h600kb95 9w4n5j87-1402-739k-9o24-4061q723eq50 ANSI-Medicare Part B [id number]-c246-8hi2-0621-9phgb482982l ANSI-Medicare Part B [id number]-[id number]-il31-4b43-4u4y-7vyi876395t4 ANSI-Commercial e84i58z3-861y-5rhr-062q-s2t64g6639hc a28r98k1-995f-0wop-188s-j2d20c7014fv ANSI-Medicare Part B [id number]-[id number] m2lq0284-6384-405y-e497-0m2d939zo0o5 ANSI-Medicare Part B [id number]-wa3o-[id number] b8677mkz-7483-2tu9-pi3f-o9w8ub19wt16 ANSI-Commercial 289rm8au-41o9-1097-[id number] [id number]-37m3-4578-w867-4ff392955035 MEDICARE COMPLETE [id number] SP [id number] MEDICARE COMPLETE [id number] SP [id number] ANSI-Medicare Part B [id number]-[id number] [id number]-p7x4-aoj8ommb4238 ANSI-Commercial 4i94q5d4-7q6s-8n1y-c032-c55v55818d64 1a06t3t2-4w3i-6k8a-h557-t69s52858c10 ANSI-Medicare Part B [id number]-yiam-[id number] [id number]-7735-229s-iymj-d376aqhdu808 [facility] OPTIONS [id number] SP [id number] MEDICARE [id number] SP [id number] A ANSI-Medicare Part B [id number]-88v2-rgm79mj0f32a ANSI-Commercial 8282bxsw-fu2t-1u91qn3r-1c10-68ug-3357n893j73h 6889ulmh-yi0g-3o48ge2c-9s34-97ve-2587g799u97z ANSI-Medicare Part B [id number]-[id number]-kgi6-59na-w7j3-jgc38449v1p3 ANSI-Medicare Part B [id number]-r2f5-x22ndi198633 ANSI-Medicare Part B [id number]-[id number] ANSI-Commercial 8t83zj47-yr4j-3818-2gs5-53ga436sb411 0n09np24-ii1x-5367-1hw4-40nw198ae165 ANSI-Medicare Part B [id number]-s2u1-992012ijv0p5 v1480o27-932n-1o2o-q5e9-663554rxf3i1 ANSI-Medicare Part B [id number]-x5z7-4b97-[id number] 368351j8-h9u9-0j62-v171-8t247c3ud71s ANSI-Commercial [id number]-6986-b9k8s8c50144 9v786264-5b79-8d9w-1976-l7m2j1f12567 ANSI-Commercial 12e549m3-13b6-855m-18w3-xjg56q8w6uv1 97p890t9-80o7-722h-18w1-yvz35x6q9ip9 ANSI-Medicare Part B [id number]-[id number] qic76366-69n0-09p3-pa83-9f2c37n62fmp ANSI-Medicare Part B [id number]-s2qm-792w-[id number] 097rw01o-l9ci-240w-n7k8-52h7tx200o2m ANSI-Medicare Part B [id number]-u5m1-1vic-xnes-197f56i51chg 7bq5pc15-z6h4-6jnx-ghqq-641m95f23ybf ANSI-Medicare Part B [id number]-1t92-1hh3-gaai-39a3pm8c7511 6q7d1v6x-0p71-1ul1-kzpt-78a3pt3b7387 ANSI-Commercial [id number]-r960-h9l702y92800 g381p594-27k7-88d4-v146-c4u312d43257 MEDICARE COMPLETE [id number] ANSI-Commercial [id number]-xesv490y8jry [id number]-dxbb282u0thh ANSI-Medicare Part B [id number]-[id number] 898y6aj9-5r06-5sbs-4643-2e19t96e09y4 ANSI-Medicare Part B [id number]-2299-e59k-w4829y7qd3ga 03ec9z3e-46qs-5303-s70y-d5284f6jk5bt ANSI-Medicare Part B [id number]-m93e-[id number] 40gc4309-n863-1p88-l93v-8634tln61tl1 ANSI-Medicare Part B [id number]-[id number]-03pz10n9998l ANSI-Commercial [id number]-oal0-3406-v1g1-x35l12j5x214 4216085w-gmr8-6846-o7b6-m29j42n7n096 ANSI-Medicare Part B [id number]-[id number] 6yj39so1-6e28-9288-n663-97gnf1m0t391 ANSI-Medicare Part B [id number]-3u9r-fbxn-e0xprg11z0h0 8b66pfv8-4cve-1m2t-vyry-y4artv38e1s0 ANSI-Commercial 9785b18t-8h61-9is3-2251-8975dn6m07a9 1923v10u-0h81-7ep8-4615-4718kr3v01n8 MEDICARE COMPLETE [id number] ANSI-Medicare Part B [id number]-[id number] ANSI-Medicare Part B [id number]-1e40-15l3-2q71-[id number] ANSI-Commercial [id number]-wl50-9wh6-37vr-j39p7p9zx697 9c168748-sx54-8xf7-65jg-a43r6k7qo851 ANSI-Medicare Part B [id number]-62r8-c34d9oj97519 ANSI-Medicare Part B [id number]-[id number]-m1ex-[id number] ANSI-Commercial [id number]-646a-3u8h-ob30m38h1zu5 [id number]-896i-7p5r-jz13k44q2ky5 ANSI-Medicare Part B [id number]-o37r-6078-[id number] ANSI-Medicare Part B [id number]-358k-[id number] ANSI-Commercial 294ij615-drt6-0q35-[id number] 549rg074-ics0-9s84-[id number] [employer]BS P[employer] Maintenance [employer] (HMO) [id number] Self [id number] BCBS P[employer] Health Maintenance Organization (HMO) [id number] Self [id number] [employer] BCBS [id number] Fina CXJ [id number] [employer] BLUE SHIELD HEA [id number] S [id number] BCBS P[employer] Health Maintenance Organization (HMO) [id number] Self [id number] BCBS Ppo Health Maintenance Organization (HMO) Se lf [place] F [id number] SELF [id number] [place] [id number] 0 [id number] UNAVAILABLE UNAVAILA BLE WORKERS COMPENSATION BELLA POMCO RAVINDER EMP/DEP O [id number] S [id number] [address] THOMAS L UNAVAILABLE [id number] UNAV AILABLE [id number] Self [id number] Problems, Conditions, and Diagnoses Code Display Name Description Problem Type Effective Dates Data Source(s) 95138017 Essential hypertension Essential hypertension Problem 04/16/2019 12:00:00 AM EST MEDENT ([facility]) [id number] Pure hypercholesterolemia Pure hypercholesterolemia Pr oblem 04/16/2019 12:00:00 AM EST MEDENT ([facility]) F43.21 [id number] Grief reaction Problem 03/04/2019 12:00:00 A M EST eCW1 ([facility]) F43.21 [id number] Grief reaction Problem 03/04/2019 12:00:00 A M EST eCW1 ([facility]) Surgeries/Procedures Procedure Description Date Indications Data Source(s) Immunization: Shingrix 50mcg/0.5mL IM (Zoster) 020 12:00:00 AM EDT eCW1 ([facility]) RADIOLOGIC EXAM KNEE COMPLETE 4/MORE VIEWS 05/11/2019 12:00:00 AM EDT MEDENT ([facility]) RADEX ANKLE COMPLETE MINIMUM 3 VIEWS 05/11/2019 12:00: 00 AM EDT MEDENT ([facility]) Shingrix 50mcg/0.5mL (Zoster) 04/26/2019 12:00:[address] eCW1 ([facility]) IMMUNIZATION ADMIN 04/26/2019 12:00:00 AM EST eCW1 ([facility]) CLTX PROX FIBULA/SHFT FX W/O MANJ 04/16/2019 12:00:00 AM EST MEDENT ([facility]) RADIOLOGIC EXAMINATION TIBIA & FIBULA 2 VIEWS 04/16/19 20 12:00:00 AM EST MEDENT ([facility]) X-Ray Ankle Ap & Lateral 2 Views 04/16/2019 12:00:00 A M EST MEDENT ([facility]) RADEX ANKLE COMPLETE MINIMUM 3 VIEWS 04/16/2019 12:00: 00 AM EST MEDENT ([facility]) Office Visit, Est Pt., Level 4 PC 03/04/2019 12:00:00 AM EST eCW1 ([facility]) Office Visit, Est Pt., Level 2 FC 03/04/2019 12:00:00 AM EST eCW1 ([facility]) Results ID Date Data Source [id number] 2020 12:00:00 AM EST [facility] Name Value Range Interpretation Code Description Data Honey rce(s) Supporting Document(s) SARS-CoV2 Rapid Antigen Positive [facility] This lab was reported by Jose David Llanes. ID Date Data Source PTH INTACT 03/15/2019 12:00:00 AM EST eCW1 ([facility]) Name Value Range Interpretation Code Description Data Honey rce(s) Supporting Document(s) 69.6 18.5-88.0 PTH INTACT eCW1 ([facility]) ID Date Data Source VITAMIN D 25-HYDROXY 03/15/2019 12:00:00 AM EST eCW1 ([facility]) Name Value Range Interpretation Code Description Data Honey rce(s) Supporting Document(s) 34.7 30.0-100.0 TOTAL 25(OH) VITAMIN D eC W1 ([facility]) ID Date Data Source LIPID PANEL (CARDIAC RISK) 03/15/2019 12:00:00 AM EST eCW1 ( [facility]) Name Value Range Interpretation Code Description Data Honey rce(s) Supporting Document(s) Cholesterol [Moles/volume] in Serum or Plasma 158 <200 CHOLESTEROL LEVEL eCW1 ([facility]) Triglyceride [Mass/volume] in Serum or Plasma by calculation 145 <150 TRIGLYCERIDES LEVEL eCW1 ([facility]) Cholesterol in HDL [Moles/volume] in Serum or Plasma 64 >40 HDL CHOLESTEROL eCW1 ([facility]) 2.468 <5 CHOLESTEROL RISK RATIO eCW1 ([facility]) Cholesterol in LDL [Mass/volume] in Serum or Plasma by calculation 65 <100 LDL CHOLESTEROL eCW1 ([facility]) 94 NON-HDL-C eCW1 ([facility]) ID Date Data Source [id number] 03/15/2019 12:00:00 AM EST eCW1 ([facility]) Name Value Range Interpretation Code Description Data Honey rce(s) Supporting Document(s) Hemoglobin A1c/Hemoglobin.total in Blood 5.4 HEMOGLOBIN A1c eCW1 ([facility]) ID Date Data Source Comprehensive Metabolic Profile (CMP) 03/15/2019 12:00:00 AM EST eCW1 ([facility]) Name Value Range Interpretation Code Description Data Honey rce(s) Supporting Document(s) 93 70-100 GLUCOSE, FASTING eCW1 ([facility]) 12 7-18 BLOOD UREA NITROGEN eCW1 ([facility]) 0.53 0.55-1.30 CREATININE FOR GFR eCW1 ([facility]) > 60.0 >45 GLOMERULAR FILTRATION RATE eCW 1 ([facility]) 144 136-145 SODIUM LEVEL eCW1 ([facility]) 4.2 3.5-5.1 POTASSIUM SERUM eCW1 ([facility]) 111 98-107 CHLORIDE LEVEL eCW1 ([facility]) 30 21-32 CARBON DIOXIDE LEVEL eCW1 ([facility]) 14 7-37 AST/SGOT eCW1 ([facility]) 21 12-78 ALT/SGPT eCW1 ([facility]) 8.8 8.8-10.2 CALCIUM LEVEL eCW1 ([facility]) 3.9 3.2-5.2 ALBUMIN eCW1 ([facility]) 0.5 0.2-1.0 BILIRUBIN,TOTAL eCW1 ([facility]) 6.7 6.4-8.2 TOTAL PROTEIN eCW1 ([facility]) 50 45-117 ALKALINE PHOSPHATASE eCW1 ([facility]) 1.39 1.00-1.93 ALBUMIN/GLOBULIN RATIO eCW1 ([facility]) ID Date Data Source CBC with Differential 03/15/2019 12:00:00 AM EST eCW1 ([facility]) Name Value Range Interpretation Code Description Data Honey rce(s) Supporting Document(s) 4.1 4.0-10.0 WHITE BLOOD COUNT eCW1 ([facility]) 4.75 4.00-5.40 RED BLOOD COUNT eCW1 ([facility]) 43.5 36.0-47.0 HEMATOCRIT eCW1 ([facility]) 13.9 12.0-15.5 HEMOGLOBIN eCW1 ([facility]) 91.6 80.0-96.0 MEAN CORPUSCULAR VOLUME e CW1 ([facility]) 29.3 27.0-33.0 MEAN CORPUSCULAR HEMOGLOB IN eCW1 ([facility]) 32.0 32.0-36.5 MEAN CORPUSCULAR HGB CONC eCW1 ([facility]) 13.7 11.5-14.5 RED CELL DISTRIBUTION WID TH eCW1 ([facility]) 248 150-450 PLATELET COUNT, AUTOMATED eCW1 ([facility]) 57.3 36.0-66.0 NEUTROPHILS % eCW1 ([facility]) 31.6 24.0-44.0 LYMPH % eCW1 ([facility]) 8.0 0.0-5.0 MONO % eCW1 ([facility]) 1.9 0.0-3.0 EOS % eCW1 ([facility]) 1.0 0.0-1.0 BASO % eCW1 ([facility]) 2.4 1.5-8.5 NEUTROPHILS # eCW1 ([facility]) 1.3 1.5-5.0 LYMPH # eCW1 ([facility]) 0.3 0.0-0.8 MONO # eCW1 ([facility]) 0.1 0.0-0.5 EOS # eCW1 ([facility]) 0.0 0.0-0.2 BASO # eCW1 ([facility]) Procedure Social History Code Duration Value Status Description Data Source(s ) Smoking 02/03/2020 12:00:00 AM EST Former Smoker completed Former Smoker eCW1 ([facility]) Smoking 04/16/2019 12:00:00 AM EST Patient is a former smoker completed Patient is a former smoker [facility]ENT ([facility]) Smoking 03/04/2019 12:00:00 AM EST Former Smoker completed Former Smoker eCW1 ([facility]) Smoking 03/04/2019 12:00:00 AM EST Former Smoker completed Former Smoker eCW1 ([facility]) Smoking 03/04/2019 12:00:00 AM EST Former Smoker completed Former Smoker eCW1 ([facility]) Smoking 03/04/2019 12:00:00 AM EST Former Smoker completed Former Smoker eCW1 (Formerly [facility]) Smoking 03/04/2019 12:00:00 AM EST Former Smoker completed Former Smoker eCW1 (Formerly [facility]) Vital Signs ID Date Data Source UNK Name Value Range Interpretation Code Description Data Source(s) Body weight 168.00 [lb_av] 168.00 [lb_av] MEDEN T ([facility], [facility]) Body temperature 97.0 [degF] 97.0 [degF] MEDENT ([facility]) Oxygen saturation in Arterial blood by Pulse oximetry 97 % 97 % MEDENT ([facility]) Respiratory rate 14 /min 14 /min MEDENT ( [facility]) Heart rate 88 /min 88 /min MEDENT ([facility]) Diastolic blood pressure 64 mm[Hg] 64 mm[Hg] MEDENT ([facility]) Systolic blood pressure 118 mm[Hg] 118 mm[Hg] M EDENT ([facility]) Diastolic blood pressure 74 mm[Hg] 74 mm[Hg] eCW1 ([facility]) Systolic blood pressure 136 mm[Hg] 136 mm[Hg] e CW1 ([facility]) Body temperature 98.2 [degF] 98.2 [degF] eCW1 ( [facility]) Respiratory rate 18 /min 18 /min eCW1 ([facility]) Heart rate 90 /min 90 /min eCW1 ([facility]) Body mass index (BMI) [Ratio] 29.15 kg/m2 29.15 kg/m2 eCW1 ([facility]) Body height 63 [in_us] 63 [in_us] eCW1 ([facility]) Body weight Measured 164.6 [lb_av] 164.6 [lb_av ] W1 ([facility])
[2020-03-10 15:32] VITALS: BP 117/56
== END 2020-03-10 15:34 | disposition home or self-care (01) ==
LOC: M ED 11:55
DX: U07.1 COVID-19 (principal); R09.81 Nasal congestion; R51.9 Headache, unspecified; R19.7 Diarrhea, unspecified; R53.83 Other fatigue; I10 Essential (primary) hypertension; Z79.82 Long term (current) use of aspirin; Z79.899 Other long term (current) drug therapy
CPT/HCPCS: 80047; 96360; 99281; M0239

== ENCOUNTER 2020-03-10 16:20 | Outpatient (CLI) | payer MEDICARE ==
--- NOTE | 2020-03-10 15:38 | IPNPDOC ---
Text Note Date of Service The patient was seen on 03/10/20. NOTE Patient is 70 years old female with past history of COPD presented hospital with increased shortness of breath, patient was tested positive for COVID 19. Physical exam pertinent for diminished lung sounds bilaterally. Patient signed consent form for monoclonal antibiotic infusion MARINA ROCHA DO Mar 10, 2020 15:38
[~2020-03-10 16:20] MED LIST changes: +ALBUTEROL 90 MCG/ACT 8GM HFA INHALER INH PRN; +ALBUTEROL SULFATE 2.5 MG/0.5 ML INH NEB SOLN INH PRN; +EPINEPHrine INJ 1 MG/ML 1ML AMP IM PRN; +NS 1,000 ML IV SCH; +diphenhydrAMINE 50MG/ML VIAL (J1200) IV PRN; +methylPREDNISolone 125MG 2ML VIAL IV PRN
[2020-03-10 16:27] VITALS: BP 132/77
[2020-03-10] MEDS ORDERED: ACETAMINOPHEN TAB 650MG DOSE (2X325MG) PO ONE (16:45)
[2020-03-10] MEDS ORDERED: BAMLANIVIMAB 700 MG in NS 250 ML IV ONE (17:00)
[2020-03-10] MEDS ORDERED: IBUPROFEN 600MG TAB PO ONE (18:30)
[2020-03-10 19:05] VITALS: BP 124/59
[2020-03-10 19:35] VITALS: BP 122/59
[2020-03-10 21:00] VITALS: BP 122/54
== END 2020-03-10 21:07 | disposition home or self-care (01) ==
LOC: M OPCLI4 16:20 → M 4MAIN 17:49 → M OPCLI4 21:07
PROVIDERS: ATTEND Internal Medicine
DX: U07.1 COVID-19 (principal)

== ENCOUNTER 2020-03-13 10:18 | Observation (INO) | payer MEDICARE ==
[~2020-03-13] VITALS: Ht 160 cm; Wt 74.3 kg
[~2020-03-13 10:18] MED LIST changes: -ALBUTEROL 90 MCG/ACT 8GM HFA INHALER INH PRN; -ALBUTEROL SULFATE 2.5 MG/0.5 ML INH NEB SOLN INH PRN; -EPINEPHrine INJ 1 MG/ML 1ML AMP IM PRN; -NS 1,000 ML IV SCH; -diphenhydrAMINE 50MG/ML VIAL (J1200) IV PRN; -methylPREDNISolone 125MG 2ML VIAL IV PRN
--- OUTSIDE RECORDS SUMMARY | 2020-03-13 10:24 | CCD ---
Author Author [facility] Organization [facility] Address Unknown Phone Unavailable Care Team Providers Care Shower Maid Name Role Phone Shaneka Culp Unavailable PROBLEMS Type Condition ICD9-CM Code [id number] Code Onset Dates Condition S tatus SNOMED Code Notes Problem Acquired absence of both cervix and uterus Z90.710 Active 778814439 Problem Vitamin D deficiency E55.9 Active 31285901 Problem Gastroesophageal reflux disease, esophagitis pre sence not specified K21.9 Active 428681630 Problem Anxiety F41.9 Active 49551595 Problem Obesity (BMI 30.0-34.9) E66.9 Active 30160324 6143043 Problem DDD (degenerative disc disease), lumbar M51.36 Active 57106829 Problem Essential hypertension I10 Active 40925572 Problem Colon cancer screening Z12.11 Active 168234021 Problem Pure hypercholesterolemia E78.00 Active 814579 004 Problem Age-related osteoporosis with current pathologic al fracture, sequela M80.00XS Active 145523670 Problem Age-related osteoporosis without current pathological fracture M81.0 Active 36489283 Problem Hypertension, unspecified type I10 Active 3 4674283 Problem Breast cancer screening Z12.31 Active 57267903 1 Problem Grief reaction F43.21 Active 198872424 Problem Cervical cancer screening Z12.4 Active 205123 001 Problem Situational stress F43.9 Active 05658497 Problem Family history of malignant neoplasm of ovary Z80. 41 Active 694661112 Problem Stress incontinence N39.3 Active 20303536 Problem Pelvic organ prolapse quantification stage 1 cystocele N81.10 Active 144418930 ALLERGIES No Known Allergies ENCOUNTERS from 1950 to 2020-03-09 Encounter Location Date Provider Diagnosis [address] [address] Feb, Shaneka Culp IMMUNIZATIONS Vaccine Route Administration Date [...] Education Language: Question Answer Notes Languages spoken: Hungarian Adventism: Question Answer Notes Adventism 21 Sikhism Sexual Hx: Question Answer Notes Have you [...] Orally twice daily for 90 day(s) Active Meclizine HCl 25 MG 1 tablet as needed Orally Daily as needed fo r 90 days Feb, Active Omeprazole 20 MG 1 capsule Orally Once a day for 90 day(s) Active Drisdol 51046 UNIT 1 capsule Orally Once weekly for 90 day(s) Active Reclast 5 MG/100ML 1 injection Intravenous annual for 1 dose(s) Sep, Active Aspirin 81 81 MG 1 tablet Orally Once a day Active Raloxifene HCl 60 MG 1 tablet Orally Once a day for 90 day(s) Active Paroxetine HCl 10 MG 1 tablet Orally twice daily for 90 days Active Lipitor 10 MG 1 tablet Orally Once a day for 90 Active AmLODIPine Besylate 2.5 MG 1 tablet Orally Once a day for 90 days Active Tylenol 1 tab Oral as needed Acti ve PROCEDURES No Information RESULTS No Results REASON FOR VISIT Neck, bilateral shoulder pain, + COVID MEDICAL (GENERAL) HISTORY Type Description Date Medical [...] Edentulous extracted Surgical History Colonoscopy clear in [place] c Dr. Carlo mckinney 2013 Surgical History [...] Information ASSESSMENTS No Information PLAN OF TREATMENT No Information Insurance Providers Payer Name Payer Address Payer Phone Insured Name Patient Relati onship to Insured Coverage Start Date Coverage End Date MEDICARE COMPLETE [employer] [address] [address] [facility] [id number] THOMAS FRANCO self
--- OUTSIDE RECORDS SUMMARY | 2020-03-13 10:24 | CCD ---
Author Author [facility] Organization [facility] Address Unknown Phone Unavailable Care Team Providers Care Child And Family Services Specialist Name Role Phone Myles BRIONES MD Unavailable [...] ANDERSON MD Unavailable Unavailable ANSELMO, B MONICA CONCEPCION Unavailable Unavailable ANSELMO, B MONICA MD Unavailable [...] MD Unavailable Unavailable COMMISSOOlena MD Unavailable Unavailable COMMISSO, Olena FANG MD [...] MD Unavailable Unavailable COMMISSOOlena MD Unavailable Unavailable COMMISSOOelna MD Unavailable Unavailable COMMISSOOlena MD Unavailable Unavailable [...] MD Unavailable Unavailable COMMISSOOlena MD Unavailable Unavailable STANBRIDGEMAINE, NAOMIE MORTGAGE LOAN PROCESSOR Unavailable Unavaila ble STANBRIDGEMAINE, NAOMIE MORTGAGE LOAN PROCESSOR Unavailable Unavaila ble STANBRIDGEMAINE, NAOMIE MORTGAGE LOAN PROCESSOR Unavailable Unavaila ble STANBRIDGEMAINE, NAOMIE MORTGAGE LOAN PROCESSOR Unavailable Unavaila ble STANBRIDGEMAINE, NAOMIE MORTGAGE LOAN PROCESSOR Unavailable Unavaila ble STANBRIDGEMAINE, NAOMIE MORTGAGE LOAN PROCESSOR Unavailable Unavaila ble STANBRIDGEMAINE, NAOMIE MORTGAGE LOAN PROCESSOR Unavailable Unavaila ble STANBRIDGEMAINE, NAOMIE MORTGAGE LOAN PROCESSOR Unavailable Unavaila ble STANBRIDGEMAINE, NAOMIE MORTGAGE LOAN PROCESSOR Unavailable Unavaila ble STANBRIDGEMAINE, NAOMIE MORTGAGE LOAN PROCESSOR Unavailable Unavaila ble RICARDO HOLLINS MD Unavailable [...] MD Unavailable Unavailable HOLLINSRICARDO MD Unavailable Unavailable HADaisha HOROWITZ MD Unavailable Unavailable Daisha ECHEVARRIA MD Unavailable [...] Unavailable Unavailable Daisha ECHEVARRIA MD Unavailable Unavailable Daisah ECHEVARRIA MD Unavailable Unavailable Daisha ECHEVARRIA MD [...] is protected by Article 27-F of the [facility] Public Health law. If you continue you may have access to information: Regarding HIV / AIDS; Provided by facilities licensed or operated by the [facility] Office of Mental Health; or Provided by the [facility] Office for People With Developmental Disabilities. If such information is present, then the following [facility] mandated warning applies: This information has [...] law may result in a fine or correction sentence or both. A general authorization for the release of medical or other information is NOT sufficient authorization for further disc losure. Family History Family Member Name Family Member Gender Family Member Status Date o f Status Description Data Source(s) Unknown Male Problem MEDENT ([facility]) Unknown Female Problem MEDENT ([facility]) Encounters Encounter Providers Location Date Indications Data Source(s ) Unknown [address] [facility] [place] [address] 03/09/2020 12:00:00 AM EST eCW1 ([facility]) Outpatient Attender: OMID fraire 2020 08:30:00 AM EST MEDENT ([facility]) Unknown [address] [facility] [place] [address] 01/17/2020 12:00:00 AM EST eCW1 ([facility]) Unknown [address] [facility] [place] [address] 01/03/2020 12:00:00 AM EST eCW1 ([facility]) Unknown [address] [place] [address] 12/22/2019 12:00:00 AM EDT eCW1 ([facility]) [address] [address] 10/04/2019 12:00:00 AM EDT [facility]CW1 ([facility] Outpatient [address] [place] [address] 08/03/2019 12:00:00 AM EDT eCW1 ([facility]) Unknown [address] [place] [address] 08/02/2019 12:00:00 AM EDT eCW1 ([facility]) Recurring Patient Attender: NAOMIE CROWE FNPReferrer: LORENZO ECHEVARRIA MD 07/27/2019 01:42:[address] [facility] [address] [place] [address] 06/30/2019 12:00:00 AM EDT eCW1 ([facility]) [address] [address] 06/29/2019 12:00:00 AM EDT eCW1 ([facility]) [address] [place] [address] 06/10/2019 12:00:00 AM EDT eCW1 ([facility]) [address] [place] [address] 04/27/2019 12:00:00 AM EST eCW1 ([facility]) [address] [place] [address] 04/26/2019 12:00:00 AM EST eCW1 ([facility]) [address] [place] [address] 04/26/2019 12:00:00 AM EST eCW1 ([facility]) [address] [place] [address] 04/21/2019 12:00:00 AM EST eCW1 ([facility]) Outpatient 04/20/2019 07:11:00 AM EST [facility] Outpatient Attender: RICARDO HOLLINS MD Physical Therapy 09:45:00 AM EST MEDENT ([facility]) OFFICE OUTPATIENT NEW 30 MINUTES Attender: RICARDO HOLLINS MD Ph ysical Therapy 04/07/2019 05:00:00 PM EST MEDENT ([facility]) [address] [place] [address] 04/07/2019 12:00:00 AM EST eCW1 ([facility]) [address] [place] [address] 03/15/2019 12:00:00 AM EST eCW1 ([facility]) [address] [place] [address] 03/15/2019 12:00:00 AM EST eCW1 ([facility]) [address] [place] [address] 03/04/2019 12:00:00 AM EST eCW1 ([facility]) Recurring Patient Attender: MONICA BRIONES MDReferrer: Charlotte drubin MD 01/14/2019 01:52:35 PM EST [facility] Recurring Patient Attender: MONICA BRIONES MDReferrer: ANNALISA BOND MD 01/14/2019 01:42:47 PM EST [facility] Recurring Patient Attender: MONICA ANDREeferrer: ANNALISA BOND MD 01/14/2019 11:46:27 AM EST [facility] Immunizations Vaccine Date Status Description Data Source(s) Zoster 50mcg/0.5mL (Shingrix) 08/03/2019 03:22:00 PM EDT completed eCW1 ([facility]) Zoster 50mcg/0.5mL (Shingrix) 08/03/2019 03:22:00 PM EDT completed eCW1 ([facility]) Zoster 50mcg/0.5mL (Shingrix) 08/03/2019 03:22:00 PM EDT completed eCW1 ([facility]) Zoster 50mcg/0.5mL (Shingrix) 08/03/2019 03:22:00 PM EDT completed eCW1 ([facility]) Zoster 50mcg/0.5mL (Shingrix) 08/03/2019 03:22:00 PM EDT completed eCW1 ([facility]) Zoster 50mcg/0.5mL (Shingrix) 08/03/2019 03:22:00 PM EDT completed eCW1 ([facility]) Zoster 50mcg/0.5mL (Shingrix) 04/26/2019 02:39:00 PM EST completed eCW1 ([facility]) Zoster 50mcg/0.5mL (Shingrix) 04/26/2019 02:39:00 PM EST completed eCW1 ([facility]) Zoster 50mcg/0.5mL (Shingrix) 04/26/2019 02:39:00 PM EST completed eCW1 ([facility]) Zoster 50mcg/0.5mL (Shingrix) 04/26/2019 02:39:00 PM EST completed eCW1 ([facility]) Zoster 50mcg/0.5mL (Shingrix) 04/26/2019 02:39:00 PM EST completed eCW1 ([facility]) Zoster 50mcg/0.5mL (Shingrix) 04/26/2019 02:39:00 PM EST completed eCW1 ([facility]) Zoster 50mcg/0.5mL (Shingrix) 04/26/2019 02:39:00 PM EST completed eCW1 ([facility]) IIV3. This is one of two codes replacing CVX 15, which is being retired. 03/27/2019 03:25:00 PM EST completed eCW1 ([facility]) IIV3. This is one of two codes replacing CVX 15, which is being retired. 03/27/2019 03:25:00 PM EST completed eCW1 ([facility]) IIV3. This is one of two codes replacing CVX 15, which is being retired. 03/27/2019 03:25:00 PM EST completed eCW1 ([facility]) IIV3. This is one of two codes replacing CVX 15, which is being retired. 03/27/2019 03:25:00 PM EST completed eCW1 ([facility]) pneumococcal polysaccharide PPV23 03/27/2019 03:24:00 PM EST comple sandra eCW1 ([facility]) pneumococcal polysaccharide PPV23 03/27/2019 03:24:00 PM EST comple sandra eCW1 ([facility]) pneumococcal polysaccharide PPV23 03/27/2019 03:24:00 PM EST comple sandra eCW1 ([facility]) pneumococcal polysaccharide PPV23 03/27/2019 03:24:00 PM EST comple sandra eCW1 ([facility]) Insurance Providers Payer name Policy type / Coverage type Policy ID Covered alliance party ID Covered alliance party's relationship to wang Policy Wang Plan Information MEDICARE COMPLETE [id number] SP [id number] MEDICARE COMPLETE [id number] SP [id number] [facility] P [id number] SELF [id number] MEDICARE COMPLETE-[facility] O [id number] S [id number] MEDICARE COMPLETE [id number] SP [id number] [facility] Medicare Complete F [id number] SELF [id number] DME Jurisdiction A [facility] C [id number] SELF [id number] Medicare C [id number] SELF [id number] [facility] MEDICARE [id number] S [id number] [facility] [id number] S [id number] [employer] MED[employer] [employer] [id number] S [id number] MEDICARE - [place] [id number] S [id number] ANSI-Medicare Part B [id number] [facility]/Medicare Commercial [id number] Self [id number] ANSI-Medicare Part B [id number] ANSI-Medicare Part B [id number] ANSI-Medicare Part B [id number] ANSI-Medicare Part B [id number] ANSI-Medicare Part B [id number] ANSI-Medicare Part B [id number] ANSI-Medicare Part B [id number] ANSI-Medicare Part B [id number]-[id number]-63uh-1n9c-u4g3-55i4w2fy92jx ANSI-Medicare Part B [id number] ANSI-Commercial 614znh93-3f99-9556-5xo7-84zl0f9x5r5j 025fbh18-9v09-2543-0io2-63ov2v1a3w0q ANSI-Medicare Part B [id number]-o6tl-8c35-ixjs-[id number] ANSI-Medicare Part B [id number]-[id number] ANSI-Medicare Part B [id number]-59u4-[id number] [id number]-13e8-[id number] ANSI-Commercial 2r744h91-0660-25fh-9dc1-pk18fy27s70k 9l326g15-7758-64ko-7dm2-me18ah12o55c ANSI-Commercial [id number]-lq44-9879-q92r-8tx690p63dm0 9c43022i-xr19-0802-v72v-3od251b64ji0 ANSI-Medicare Part B [id number] ANSI-Medicare Part B [id number]-f8qv-[id number] ANSI-Medicare Part B [id number]-8b50-k28o-[id number] 7985qy40-831j-6p91-y44x-77792f85c41a ANSI-Medicare Part B [id number]-[id number] 9xz2n8e6-w733-7084-8m99-b32174h3p12q ANSI-Commercial dqe8v56g-i9g8-049p-83ig-872n8327r5l9 rxf0s23m-h1i4-826t-19er-759v5192g6u9 ANSI-Medicare Part B [id number]-ow60-g8jje706j0a6 pj78oek0-33i2-4re8-ip75-u3yva446x1d9 ANSI-Medicare Part B [id number]-t45j-[id number] 838ivd38-rh85-917v-z45u-voa7521579j2 ANSI-Commercial 0h9y5r90-6117-662a-6y28-7124a972xc97 1k5u7g94-4010-382l-0n28-6628m837oi83 ANSI-Medicare Part B [id number] 1dl0hx3k-m213-3yn1-8574-9ttcy800360i ANSI-Medicare Part B [id number]-[id number] 48l461d5-ag69-4l20-3x9q-8awn584023l9 ANSI-Commercial f08b13t9-906q-0aio-107j-b4n58s9867ve n30n65s5-894e-5jkx-342r-w4c86b8625nz ANSI-Medicare Part B [id number]-e484-0h4l650ad3s2 m8ij7333-2351-149r-p613-1e3j600de6b8 ANSI-Medicare Part B [id number]-3822-8qn1-lh2l-c4p7mm35qx65 v5131rqg-7381-1fs2-vj6t-b6k1hr94pe34 ANSI-Commercial 189sk7zc-72l2-5411-z371-2rh533300009 684lw7vn-48i7-0066-x216-6ro318485560 MEDICARE COMPLETE [id number] SP [id number] MEDICARE COMPLETE [id number] SP [id number] ANSI-Medicare Part B [id number]-s9j7-nzs1ycyr5535 1e759u36-68v0-9628-w9g1-ljn9eeif5175 ANSI-Commercial 5x32o1v8-7v8o-0y7n-z547-i02c32455m83 3k48l7r4-3o4j-3z3y-c296-p92p91468e05 ANSI-Medicare Part B [id number]-7683-070b-xokn-v244rnxvr572 440332nh-3305-865i-xmtx-b889asizv191 [facility] OPTIONS [id number] SP [id number] MEDICARE [id number] A ANSI-Medicare Part B [id number]-26v7-bye05mx4o94o [id number]-74g0-wxz85we2k51q ANSI-Commercial 4365ojbg-ys8m-6h18az9v-2x05-82qe-7628a349n35n 1658eqns-tg8m-4i90lm4g-9a47-71tf-3066w789c43l ANSI-Medicare Part B [id number]-l5n0-isb11910a2b5 f3425357-feg2-87ys-l2r5-rhu71163v5y7 ANSI-Medicare Part B [id number]-j9t7-r27ijh377448 a2yy1891-3861-1420-d0c8-h38szl321291 ANSI-Medicare Part B [id number]-3sv5-8966-4z07-3kcc392oq064 6at5x66z-4xa8-5229-6v08-4jjr283lj485 ANSI-Commercial 0v03hh76-hl7e-6996-5cb6-34zo127lz274 7s86oe22-ar9o-9815-2js6-39js631zt388 ANSI-Medicare Part B [id number]-1u9w-g5m3-912170dut4l2 u4984q52-996f-6n1j-y5w2-148414ggm9w4 ANSI-Medicare Part B [id number]-c3g4-7u60-t155-8s737g1bh89n 828194g4-d0h4-4z33-y465-9v339f8my62s ANSI-Commercial 4e335598-1k15-5m2v-4999-e4r9w8m09196 8n231825-8d09-4n6k-5667-h6a3n4h30938 ANSI-Commercial 52k629m8-97x4-445r-23q9-whv97o4m5cw8 89k164v1-49u1-950i-08r6-iyh26e1o9qk4 ANSI-Medicare Part B [id number]-kc73-9x1t70m84rcj jvc98966-86d8-60x7-bl44-5t6w33k67glm ANSI-Medicare Part B [id number]-x7kz-098q-p2q6-22b7ip484m4g 334ri58f-h2vk-529e-v5r2-53f5rj609w1x ANSI-Medicare Part B [id number]-n4o5-2ugl-yvow-506m51h36mpy 6gk8xa39-q2u0-5hpp-ldje-891l04s74nfp ANSI-Medicare Part B [id number]-2h97-2fv2-pzwn-67q2cw5k8381 5d8k0j1n-9n25-8hq2-vvti-32x5hb6m1921 ANSI-Commercial v429p021-73o5-42v1-j866-n1o587b89712 p668d542-78j3-48c1-g975-f8n153b16227 MEDICARE COMPLETE [id number] ANSI-Commercial 45085866-3n31-34n6-1054-fmqz234t3hju 92876101-4c29-92i9-6015-ejvi749z0osx ANSI-Medicare Part B [id number]-[id number] 522s6rn3-9h19-2nlj-6148-9i67q69n94q3 ANSI-Medicare Part B [id number]-69nv-7271-q85i-h5763p5ty6ox 64gi6j2r-15sn-4821-r26l-c1904h3ej8uk ANSI-Medicare Part B [id number]-x08z-3291nki56sa1 12wz1005-z093-7t88-l93q-9746xdm12or7 ANSI-Medicare Part B [id number]-73oy18t5154i h76x8715-6i91-5m18-0h5n-19ri63u1952w ANSI-Commercial 3508098r-zfb6-0267-m8t2-q66k12v2y928 1236846r-szu9-8936-u4e6-s98t50i2h876 ANSI-Medicare Part B [id number]-c202-17pii5n4b538 0vt02lx6-3d98-0406-f469-02srh9o1f689 ANSI-Medicare Part B 8e12itj4-3zyv-1l4h-afvi-y2prwp33b4s6 8x14cqa6-9ugb-0g6o-nuhw-a9yobt59m0b7 ANSI-Commercial 5933k27h-4p78-1xc2-0062-9276ga0l86z8 1259i85g-4x39-0qo2-4503-2780yz2q09t2 MEDICARE COMPLETE [id number] ANSI-Medicare Part B [id number]-[id number] i70v804t-3x6y-95k6-3618-2082005qqd8u ANSI-Medicare Part B [id number]-[id number] 31874oio-5y07-11b3-3x10-e8424776j2n6 ANSI-Commercial [id number]-ko18-9xs0-91vr-a73z3b8by464 9r748907-sk82-1qj7-76ez-m29o4g2mt694 ANSI-Medicare Part B [id number]-61y1-[id number]-1r6a-03o1-m47q7xt98271 ANSI-Medicare Part B [id number]-8970-511g-e1wg-[id number] e92vhxxd-9483-575f-v6kb-43285u3xk312 ANSI-Commercial 9d82z063-46te-338q-9t1u-qq19q81o3sz9 7w84s264-13nx-155w-1m3q-ke24a87k7kl1 ANSI-Medicare Part B [id number]-6195-[id number]-n34b-4879-[id number] ANSI-Medicare Part B [id number] 9zl0kw20-to2x-377z-ydy3-547lz3q673ow ANSI-Commercial [id number]-fzh3-1f92-ns43-8k78056r0j7v 243po558-fao5-0d43-[id number] [employer]BS P[employer] Maintenance Organization (HMO) [id number] Self [id number] BCBS Ppo Health Maintenance Organization (HMO) [id number] Self [id number] [employer]CE[employer] BCBS [id number] Fina CXJ [id number] EXCELLUS BLUE CROSS BLUE SHIELD HEA [id number] S [id number] BC[employer] Ppo Health Maintenance Organization (HMO) [id number] Self [id number] BC[employer] Ppo Health Maintenance Organization (HMO) Se lf [place] F [id number] SELF [id number] [place] [id number] 0 [id number] UNAVAILABLE UNAVAILA BLE WORKERS COMPENSATION BELLA POMCO RAVINDER EMP/DEP O [id number] S [id number] [address] THOMAS Love UNAVAILABLE [id number] UNAV AILABLE [id number] Self [id number] Problems, Conditions, and Diagnoses Code Display Name Description Problem Type Effective Dates Data Source(s) 21370968 Essential hypertension Essential hypertension Problem 04/16/2019 12:00:00 AM EST MEDENT ([facility] [id number] Pure hypercholesterolemia Pure hypercholesterolemia Pr oblem 04/16/2019 12:00:00 AM EST MEDENT ([facility]) F43.21 [id number] Grief reaction Problem 03/04/2019 12:00:00 A M EST eCW1 ([facility]) F43.21 [id number] Grief reaction Problem 03/04/2019 12:00:00 A M EST eCW1 ([facility]) Surgeries/Procedures Procedure Description Date Indications Data Source(s) Immunization: Shingrix 50mcg/0.5mL IM (Zoster) 020 12:00:00 AM EDT eCW1 ([facility]) RADIOLOGIC EXAM KNEE COMPLETE 4/MORE VIEWS 05/11/2019 12:00:00 AM EDT MEDENT ([facility]) RADEX ANKLE COMPLETE MINIMUM 3 VIEWS 05/11/2019 12:00: 00 AM EDT MEDENT ([facility]) Shingrix 50mcg/0.5mL (Zoster) 04/26/2019 12:00:[address] eCW1 ([facility]) IMMUNIZATION ADMIN 04/26/2019 12:00:00 AM EST eCW1 ([facility]) CLTX PROX FIBULA/SHFT FX W/O MANJ 04/16/2019 12:00:00 AM EST MEDENT ([facility] ) RADIOLOGIC EXAMINATION TIBIA & FIBULA 2 VIEWS 04/16/19 20 12:00:00 AM EST MEDENT ([facility] ) X-Ray Ankle Ap & Lateral 2 Views 04/16/2019 12:00:00 A M EST MEDENT ([facility]) RADEX ANKLE COMPLETE MINIMUM 3 VIEWS 04/16/2019 12:00: 00 AM EST MEDENT ([facility]) Office Visit, Est Pt., Level 4 PC 03/04/2019 12:00:00 AM EST eCW1 ([facility]) Office Visit, Est Pt., Level 2 FC 03/04/2019 12:00:00 AM EST eCW1 ([facility]) Results ID Date Data Source [id number] 2020 12:00:00 AM EST [facility] Name Value Range Interpretation Code Description Data Honey rce(s) Supporting Document(s) SARS-CoV2 Rapid Antigen Positive [facility] This lab was reported by Jose David Llanes. ID Date Data Source PTH INTACT 03/15/2019 12:00:00 AM EST eCW1 ([facility]) Name Value Range Interpretation Code Description Data Honey rce(s) Supporting Document(s) 69.6 18.5-88.0 PTH INTACT eCW1 ([facility]) ID Date Data Source VITAMIN D [id number] 03/15/2019 12:00:00 AM EST eCW1 ([facility]) Name Value Range Interpretation Code Description Data Honey rce(s) Supporting Document(s) 34.7 30.0-100.0 TOTAL 25(OH) VITAMIN D eC W1 ([facility]) ID Date Data Source LIPID PANEL (CARDIAC RISK) 03/15/2019 12:00:00 AM EST eCW1 ( [facility]) Name Value Range Interpretation Code Description Data Honey rce(s) Supporting Document(s) Cholesterol [Moles/volume] in Serum or Plasma 158 <200 CHOLESTEROL LEVEL eCW1 ([facility]) Triglyceride [Mass/volume] in Serum or Plasma by calculation 145 <150 TRIGLYCERIDES LEVEL eCW1 ([facility]) Cholesterol in HDL [Moles/volume] in Serum or Plasma 64 >40 HDL CHOLESTEROL eCW1 ([facility]) 2.468 <5 CHOLESTEROL RISK RATIO eCW1 ([facility]) Cholesterol in LDL [Mass/volume] in Serum or Plasma by calculation 65 <100 LDL CHOLESTEROL eCW1 ([facility]) 94 NON-HDL-C eCW1 ([facility]) ID Date Data Source [id number] 03/15/2019 12:00:00 AM EST eCW1 (Formerly [facility]) Name Value Range Interpretation Code Description Data Honey rce(s) Supporting Document(s) Hemoglobin A1c/Hemoglobin.total in Blood 5.4 HEMOGLOBIN A1c eCW1 ([facility]) ID Date Data Source Comprehensive Metabolic Profile (CMP) 03/15/2019 12:00:00 AM EST eCW1 ([facility]) Name Value Range Interpretation Code Description Data Honey rce(s) Supporting Document(s) 93 70-100 GLUCOSE, FASTING eCW1 ([facility]) 12 7-18 BLOOD UREA NITROGEN eCW1 ([facility]) 0.53 0.55-1.30 CREATININE FOR GFR eCW1 ([facility]) > 60.0 >45 GLOMERULAR FILTRATION RATE eCW 1 ([facility]) 144 136-145 SODIUM LEVEL eCW1 ([facility]) 4.2 3.5-5.1 POTASSIUM SERUM eCW1 (Formerly [facility], 1928–1983) 111 98-107 CHLORIDE LEVEL eCW1 ([facility]) 30 21-32 CARBON DIOXIDE LEVEL eCW1 (On license of [facility]) 14 7-37 AST/SGOT eCW1 ([facility]) 21 12-78 ALT/SGPT eCW1 ([facility]) 8.8 8.8-10.2 CALCIUM LEVEL eCW1 ([facility]) 3.9 3.2-5.2 ALBUMIN eCW1 ([facility]) 0.5 0.2-1.0 BILIRUBIN,TOTAL eCW1 ([facility], 1928–1983) 6.7 6.4-8.2 TOTAL PROTEIN eCW1 ([facility]) 50 45-117 ALKALINE PHOSPHATASE eCW1 (On license of [facility]) 1.39 1.00-1.93 ALBUMIN/GLOBULIN RATIO eCW1 ([facility]) ID Date Data Source CBC with Differential 03/15/2019 12:00:00 AM EST eCW1 ([facility]) Name Value Range Interpretation Code Description Data Honey rce(s) Supporting Document(s) 4.1 4.0-10.0 WHITE BLOOD COUNT eCW1 ([facility]) 4.75 4.00-5.40 RED BLOOD COUNT eCW1 ([facility], 1928–1983) 43.5 36.0-47.0 HEMATOCRIT eCW1 ([facility]) 13.9 12.0-15.5 HEMOGLOBIN eCW1 ([facility]) 91.6 80.0-96.0 MEAN CORPUSCULAR VOLUME e CW1 ([facility]) 29.3 27.0-33.0 MEAN CORPUSCULAR HEMOGLOB IN eCW1 ([facility]) 32.0 32.0-36.5 MEAN CORPUSCULAR HGB CONC eCW1 ([facility]) 13.7 11.5-14.5 RED CELL DISTRIBUTION WID TH eCW1 ([facility]) 248 150-450 PLATELET COUNT, AUTOMATED eCW1 ([facility]) 57.3 36.0-66.0 NEUTROPHILS % eCW1 ([facility]) 31.6 24.0-44.0 LYMPH % eCW1 ([facility]) 8.0 0.0-5.0 MONO % eCW1 ([facility]) 1.9 0.0-3.0 EOS % eCW1 ([facility]) 1.0 0.0-1.0 BASO % eCW1 ([facility]) 2.4 1.5-8.5 NEUTROPHILS # eCW1 ([facility]) 1.3 1.5-5.0 LYMPH # eCW1 ([facility]) 0.3 0.0-0.8 MONO # eCW1 ([facility]) 0.1 0.0-0.5 EOS # eCW1 ([facility]) 0.0 0.0-0.2 BASO # eCW1 ([facility]) Procedure Social History Code Duration Value Status Description Data Source(s ) Smoking 02/03/2020 12:00:00 AM EST Former Smoker completed Former Smoker eCW1 ([facility]) Smoking 04/16/2019 12:00:00 AM EST Patient is a former smoker completed Patient is a former smoker MEDENT ([facility]) Smoking 03/04/2019 12:00:00 AM EST Former Smoker completed Former Smoker eCW1 ([facility]) Smoking 03/04/2019 12:00:00 AM EST Former Smoker completed Former Smoker eCW1 ([facility]) Smoking 03/04/2019 12:00:00 AM EST Former Smoker completed Former Smoker eCW1 ([facility]) Smoking 03/04/2019 12:00:00 AM EST Former Smoker completed Former Smoker eCW1 ([facility]) Smoking 03/04/2019 12:00:00 AM EST Former Smoker completed Former Smoker eCW1 ([facility]) Vital Signs ID Date Data Source UNK Name Value Range Interpretation Code Description Data Source(s) Body weight 168.00 [lb_av] 168.00 [lb_av] MEDEN T ([facility], [facility]) Body temperature 97.0 [degF] 97.0 [degF] MEDENT ([facility]) Oxygen saturation in Arterial blood by Pulse oximetry 97 % 97 % MEDENT ([facility]) Respiratory rate 14 /min 14 /min [facility] Heart rate 88 /min 88 /min MEDENT ([facility], [facility]) Diastolic blood pressure 64 mm[Hg] 64 mm[Hg] MEDENT ([facility]) Systolic blood pressure 118 mm[Hg] 118 mm[Hg] M EDENT ([facility]) Diastolic blood pressure 74 mm[Hg] 74 mm[Hg] eCW1 ([facility]) Systolic blood pressure 136 mm[Hg] 136 mm[Hg] e CW1 ([facility]) Body temperature 98.2 [degF] 98.2 [degF] eCW1 ( [facility]) Respiratory rate 18 /min 18 /min eCW1 ([facility]) Heart rate 90 /min 90 /min eCW1 ([facility]ly [facility], 1928–1983) Body mass index (BMI) [Ratio] 29.15 kg/m2 29.15 kg/m2 eCW1 ([facility]) Body height 63 [in_us] 63 [in_us] eCW1 ([facility]) Body weight Measured 164.6 [lb_av] 164.6 [lb_av ] W1 ([facility])
--- OUTSIDE RECORDS SUMMARY | 2020-03-13 10:51 | CCD ---
Author Author [facility] Organization [facility] Address Unknown Phone Unavailable Care Team Providers Care Practice Management Consultant Name Role Phone Myles BRIONES MD Unavailable [...] Unavailable COMMISSOOlena MD Unavailable Unavailable STANBRIDGEMAINE, NAOMIE JAR FILLER Unavailable Unavaila ble STANBRIDGEMAINE, NAOMIE JAR FILLER Unavailable Unavaila ble STANBRIDGEMAINE, NAOMIE JAR FILLER Unavailable Unavaila ble STANBRIDGEMAINE, NAOMIE JAR FILLER Unavailable Unavaila ble STANBRIDGEMAINE, NAOMIE JAR FILLER Unavailable Unavaila ble STANBRIDGEMAINE, NAOMIE JAR FILLER Unavailable Unavaila ble STANBRIDGEMAINE, NAOMIE JAR FILLER Unavailable Unavaila ble STANBRIDGEMAINE, NAOMIE JAR FILLER Unavailable Unavaila ble STANBRIDGEMAINE, NAOMIE JAR FILLER Unavailable Unavaila ble STANBRIDGEMAINE, NAOMIE JAR FILLER Unavailable Unavaila ble RICARDO HOLLINS MD Unavailable [...] is protected by Article 27-F of the [facility] Public Health law. If you continue you may have access to information: Regarding HIV / AIDS; Provided by facilities licensed or operated by the [facility] Office of Mental Health; or Provided by the [facility] Office for People With Developmental Disabilities. If such information is present, then the following [facility] mandated warning applies: This information has [...] law may result in a fine or usp sentence or both. A general authorization for the release of medical or other information is NOT sufficient authorization for further disc losure. Family History Family Member Name Family Member Gender Family Member Status Date o f Status Description Data Source(s) Unknown Male Problem MEDENT ([facility]) Unknown Female Problem MEDENT ([facility]) Encounters Encounter Providers Location Date Indications Data Source(s ) Unknown [address] [facility] [place] [address] 03/09/2020 12:00:00 AM EST eCW1 ([facility]) Outpatient Attender: OMID fraire 2020 08:30:00 AM EST MEDENT ([facility]) Unknown [address] [facility] [place] [address] 01/17/2020 12:00:00 AM EST eCW1 ([facility]) Unknown [address] [facility] [place] [address] 01/03/2020 12:00:00 AM EST eCW1 ([facility]) Unknown [address] [place] [address] 12/22/2019 12:00:00 AM EDT eCW1 ([facility]) [address] [address] 10/04/2019 12:00:00 AM EDT eCW1 ([facility] Outpatient [address] [place] [address] 08/03/2019 12:00:00 AM EDT eCW1 ([facility]) Unknown [address] [place] [address] 08/02/2019 12:00:00 AM EDT eCW1 ([facility]) Recurring Patient Attender: NAOMIE CROWE FNPReferrer: LORENZO ECHEVARRIA MD 07/27/2019 01:42:01 PM EDT [facility] [address] [place] [address] 06/30/2019 12:00:00 AM EDT eCW1 ([facility]) [address] [address] 06/29/2019 12:00:00 AM EDT eCW1 ([facility]) [address] [place] [address] 06/10/2019 12:00:00 AM EDT eCW1 ([facility]) [address] [place] [address] 04/27/2019 12:00:00 AM EST eCW1 ([facility]) [address] [place] [address] 04/26/2019 12:00:00 AM EST eCW1 ([facility]) [address] [place] [address] 04/26/2019 12:00:00 AM EST eCW1 ([facility]) [address] [place] [address] 04/21/2019 12:00:00 AM EST eCW1 ([facility]) Outpatient 04/20/2019 07:11:00 AM EST [facility] Outpatient Attender: RIACRDO HOLLINS MD Physical Therapy 09:45:00 AM EST MEDENT ([facility]) OFFICE OUTPATIENT NEW 30 MINUTES Attender: RICARDO HOLLINS MD Ph ysical Therapy 04/07/2019 05:00:00 PM EST MEDENT ([facility]) [address] [place] [address] 04/07/2019 12:00:00 AM EST eCW1 ([facility]) [address] [place] [address] 03/15/2019 12:00:00 AM EST eCW1 ([facility]) [address] [place] [address] 03/15/2019 12:00:00 AM EST eCW1 ([facility]) [address], [address] [place] [address] 03/04/2019 12:00:00 AM EST eCW1 ([facility]) Recurring Patient Attender: MONICA BRIONES MDReferrer: Charlotte durbin MD 01/14/2019 01:52:35 PM EST [facility] Recurring Patient Attender: MONICA BRIONES MDReferrer: ANNALISA BOND MD 01/14/2019 01:42:47 PM EST [facility] Recurring Patient Attender: MONICA ANDREeferrer: ANNALISA BOND MD 01/14/2019 11:46:27 AM EST [facility] Immunizations Vaccine Date Status Description Data Source(s) Zoster 50mcg/0.5mL (Shingrix) 08/03/2019 03:22:00 PM EDT completed eCW1 ([facility]) Zoster 50mcg/0.5mL (Shingrix) 08/03/2019 03:22:00 PM EDT completed eCW1 ([facility]) Zoster 50mcg/0.5mL (Shingrix) 08/03/2019 03:22:00 PM EDT completed eCW1 ([facility]) Zoster 50mcg/0.5mL (Shingrix) 08/03/2019 03:22:00 PM EDT completed eCW1 ([facility]) Zoster 50mcg/0.5mL (Shingrix) 08/03/2019 03:22:00 PM EDT completed eCW1 ([facility]) Zoster 50mcg/0.5mL (Shingrix) 08/03/2019 03:22:00 PM EDT completed eCW1 ([facility]) Zoster 50mcg/0.5mL (Shingrix) 04/26/2019 02:39:00 PM EST completed eCW1 ([facility]) Zoster 50mcg/0.5mL (Shingrix) 04/26/2019 02:39:00 PM EST completed eCW1 ([facility]) Zoster 50mcg/0.5mL (Shingrix) 04/26/2019 02:39:00 PM EST completed eCW1 ([facility]) Zoster 50mcg/0.5mL (Shingrix) 04/26/2019 02:39:00 PM EST completed eCW1 ([facility]) Zoster 50mcg/0.5mL (Shingrix) 04/26/2019 02:39:00 PM EST completed eCW1 ([facility]) Zoster 50mcg/0.5mL (Shingrix) 04/26/2019 02:39:00 PM EST completed eCW1 ([facility]) Zoster 50mcg/0.5mL (Shingrix) 04/26/2019 02:39:00 PM EST completed eCW1 ([facility]) IIV3. This is one of two codes replacing CVX 15, which is being retired. 03/27/2019 03:25:00 PM EST completed eCW1 ([facility]) IIV3. This is one of two codes replacing CVX 15, which is being retired. 03/27/2019 03:25:00 PM EST completed eCW1 ([facility]) IIV3. This is one of two codes replacing CVX 15, which is being retired. 03/27/2019 03:25:00 PM EST completed eCW1 ([facility]) IIV3. This is one of two codes replacing CVX 15, which is being retired. 03/27/2019 03:25:00 PM EST completed eCW1 ([facility]) pneumococcal polysaccharide PPV23 03/27/2019 03:24:00 PM EST comple sandra eCW1 ([facility]) pneumococcal polysaccharide PPV23 03/27/2019 03:24:00 PM EST comple sandra eCW1 ([facility]) pneumococcal polysaccharide PPV23 03/27/2019 03:24:00 PM EST comple sandra eCW1 ([facility]) pneumococcal polysaccharide PPV23 03/27/2019 03:24:00 PM EST comple sandra eCW1 ([facility]) Insurance Providers Payer name Policy type / Coverage type Policy ID Covered constitution party ID Covered constitution party's relationship to wang Policy Wang Plan Information MEDICARE COMPLETE [id number] SP [id number] MEDICARE COMPLETE [id number] SP [id number] [facility] [id number] SELF [id number] MEDICARE COMPLETE-[facility] O [id number] S [id number] MEDICARE COMPLETE [id number] SP [id number] [facility] Medicare Complete F [id number] SELF [id number] DME Jurisdiction A [facility] C [id number] SELF [id number] Medicare C [id number] SELF [id number] [facility] MEDICARE [id number] S [id number] [facility] [id number] S [id number] [facility] [id number] S [id number] [place]ICARE - [place] [id number] S [id number] ANSI-Medicare Part B [id number] [facility]/Medicare Commercial [id number] Self [id number] ANSI-Medicare Part B [id number] ANSI-Medicare Part B [id number] ANSI-Medicare Part B [id number] ANSI-Medicare Part B [id number] ANSI-Medicare Part B [id number] ANSI-Medicare Part B [id number] ANSI-Medicare Part B [id number]-[id number]-[id number] ANSI-Medicare Part B [id number]-5m0w-[id number] 9wj0ns4p-51ql-5k2q-i7j2-19x2w4nc23pb ANSI-Medicare Part B [id number]-510a-[id number] ANSI-Commercial 851smb12-5j88-1329-5lz0-83qn3y8p2x9j 796zuf31-0v18-7974-0yz3-78gq1i7w2q1l ANSI-Medicare Part B [id number] nkao5t95-f2oa-0q35-smsv-[id number] ANSI-Medicare Part B [id number]-[id number] ANSI-Medicare Part B [id number]-[id number]-64b5-p6y24h7ul913 ANSI-Commercial 1p075c26-7115-34nz-7kc0-db52ox94s67w 9l595c27-5382-10hu-5tl7-yt77wi52y62x ANSI-Commercial 3b25220t-ta82-2049-e74n-0ur020w11vk3 6q15225x-rl12-9298-x65p-0ld962t56ha8 ANSI-Medicare Part B [id number]-qqnk-[id number] ANSI-Medicare Part B [id number]-d1zn-42n0-294f-[id number] ANSI-Medicare Part B [id number]-5w19-u76m-[id number] 4489fr07-493z-3o55-t53i-24202a48u49s ANSI-Medicare Part B [id number]-c731-3943-0p84-[id number] 0gt2r1p4-f179-0271-6v54-n53672q4h78f ANSI-Commercial sty4z27v-q0e3-428e-40cs-525e4938d0k6 ual9d06q-x1o6-929w-85ix-516f2558c9p1 ANSI-Medicare Part B [id number]-hy85-a2hvd561k5f8 is08rmf5-64x5-9ly1-bw00-t5zwq047e1t4 ANSI-Medicare Part B [id number]-o09m-tqk3729478j5 663mwk51-gy09-649r-y25s-xvq9394208z2 ANSI-Commercial 4q6i2r90-2788-597i-2u38-8605a625lb87 7f8w3k43-2768-745r-1q52-1864f932yo52 ANSI-Medicare Part B [id number]-q706-0rd6-5708-8bbka355963c 5oz1wd6t-j698-0ml9-0551-7ufce457065b ANSI-Medicare Part B [id number]-[id number] 55j793b6-ay87-3a09-2d4h-1iae104743p3 ANSI-Commercial e42y47e8-749v-5jte-781o-o0e54q5858qz w75b17x0-989q-2nqw-320z-r6b05k0048lz ANSI-Medicare Part B [id number]-y262-2n0s851ai6y2 z0lh5558-6465-521u-n715-3b1m800eu7l3 ANSI-Medicare Part B [id number]-0945-7hb6-vq1a-r7q8mp59la03 a2568uro-8191-8lh4-qg1t-z1n1ab92zz74 ANSI-Commercial 892kl6dr-97l5-3990-[id number] 524nx9vo-92s0-9125-t062-8lz629120594 MEDICARE COMPLETE [id number] SP [id number] MEDICARE COMPLETE [id number] SP [id number] ANSI-Medicare Part B [id number]-x0b4-yew8smuf9023 8x861h04-69p6-8771-t7d0-neu7akyy2302 ANSI-Commercial 8m52y4f2-1q9c-8a3h-a580-e59r62390u99 6k82w1s7-9j6d-3a8m-u669-p63e48095j03 ANSI-Medicare Part B [id number]-3254-458f-wdfg-l600bacrg103 220906ol-4260-518a-bjmo-q876qkdxb588 [facility] OPTIONS [id number] SP [id number] MEDICARE [id number] A ANSI-Medicare Part B [id number]-73c9-mqt21nw6c89i [id number]-94u8-jwk82qg5p19x ANSI-Commercial 5974zxnx-nn4q-7g47xw0e-7x55-83wd-0565g689d28t 2726xnqn-dq8m-9e92wr5g-8d84-30zj-8555j514w62h ANSI-Medicare Part B [id number]-o2e8-hdt97168u1l6 k5135996-tdc5-37xz-u7b1-fiw43552m2f7 ANSI-Medicare Part B [id number]-i3f3-p45fdw458000 e5ra4289-8222-8034-n1a7-a94xwj607754 ANSI-Medicare Part B [id number]-3bh6-2289-3y42-4zyq765kr673 0na8b36h-2pd0-4003-7e87-9hys831ra243 ANSI-Commercial 2r16vn09-hp7t-3238-5vx7-94di502nd765 5g92za70-uk3l-3146-3oo3-02ab739rd666 ANSI-Medicare Part B [id number]-4n1z-y2s8-745022dii4m7 r7867x96-699t-3y8r-y2z0-542802pvg1j9 ANSI-Medicare Part B [id number]-s1s9-4v51-c880-5v901t6fz64g 521990y7-d1h8-7w47-d056-7h160b7ap98y ANSI-Commercial 5g259364-7p04-9k9k-6173-v8y1n7g48889 6t130422-1g93-3p3n-7185-j9f2u9v56872 ANSI-Commercial 35l384h7-94l6-096f-54x1-rpw60j2p0fx1 21w399p2-54w7-595j-60k7-vez40q6r8as9 ANSI-Medicare Part B [id number]-dj58-8q6f28j76ysn ohb17368-83m3-29m9-qt68-0o3f59l43eoa ANSI-Medicare Part B [id number]-r9vg-284n-b6m7-45m0hn351a5h 128dq57n-r7vm-927d-w9d5-04b9sk524e7k ANSI-Medicare Part B [id number]-z2v6-3nzh-situ-456m19q21prx 9ou5rl78-m7s4-4sxr-tzuz-782z98w23bwt ANSI-Medicare Part B [id number]-7l04-0fo3-bfqq-90c3ds4d2846 7v3h8u2q-3f69-8nc8-kqur-51k8tw6c4731 ANSI-Commercial v523q989-43g9-58m1-k416-x1r159d82040 r439r054-69s4-01t6-o346-k6r739r94454 MEDICARE COMPLETE [id number] ANSI-Commercial 16501037-0d35-67t8-5173-crhp313h8kju 20965561-4v61-81d9-2144-cmoo377x7zxw ANSI-Medicare Part B [id number]-6456-1l23x20n09k1 964u3cz2-7k92-9naj-4301-1m39h69a86p5 ANSI-Medicare Part B 67zw7l5b-65zf-6143-g72k-x8080b6ru9ld 67de0i3g-39hv-7513-u52e-t8451h3kb1ka ANSI-Medicare Part B [id number]-n479-6m73-i60k-9973efd73qp4 26nk4104-j565-1l61-j11k-4532iiw81dk5 ANSI-Medicare Part B [id number]-30yv95l4212q c65g2133-5u21-7u26-8i2b-71ww12f1623w ANSI-Commercial 5438328y-oer1-8480-z5a5-w11l41b8c860 6674131j-ybu1-3790-a3q2-j86m46d5y270 ANSI-Medicare Part B [id number]-d683-72tfn3z5j021 7vm36tg2-6i62-7697-w945-35buy8y7o237 ANSI-Medicare Part B [id number]-1r2z-phlj-v7cksm65j3o7 9e45bfj8-9mox-4w5d-vnzu-i5wugg41e0g4 ANSI-Commercial 9178e59w-4o39-9ir0-3624-6211rt4c42b9 0371l78b-1l11-5ye4-6395-7216va9v70w6 MEDICARE COMPLETE [id number] ANSI-Medicare Part B [id number]-[id number] [id number]-0q3o-80e0-8257-5206629fbi2w ANSI-Medicare Part B [id number]-[id number] 29011xzf-1m32-29l9-8e63-[id number] ANSI-Commercial [id number]-vc80-7sl3-61gd-d02h4n1ns971 [id number]-bw42-8uc7-08cs-p24p0h8sl166 ANSI-Medicare Part B [id number]-3e6s-43g5-[id number] b1969g91-456p-1t1h-99y3-a35q1io31687 ANSI-Medicare Part B [id number]-8405-697x-y5ou-[id number] j79jdeni-7579-005o-j7nu-70186x1dv548 ANSI-Commercial 3w56c639-05zw-788o-6p4i-au91o57o0vj3 1q61x238-74tw-564u-8e6f-dd69z60y1gp9 ANSI-Medicare Part B [id number]-[id number] 5436q6zf-q99y-4203-[id number] ANSI-Medicare Part B [id number]-215q-gbu7-179ed4z783fb 2ys3br69-tq1b-302l-[id number] ANSI-Commercial 894pj556-zsl1-7c78-[id number] 302xy432-kqr4-7b50-ud76-9m01861f2v8f BCBS P[employer] Maintenance Organization (HMO) [id number] Self [id number] BCBS Ppo Health Maintenance Organization (HMO) [id number] Self [id number] EXCELLUS BCBS [id number] Fina CXJ [id number] EXCELLUS BLUE CROSS BLUE SHIELD HEA [id number] S [id number] BCBS Ppo Health Maintenance Organization (HMO) [id number] Self [id number] BCBS Ppo Health Maintenance Organization (HMO) Se lf [place] F [id number] SELF [id number] [place] [id number] 0 [id number] UNAVAILABLE UNAVAILA BLE WORKERS COMPENSATION BELLA POMCO RAVINDER EMP/DEP O [id number] S [id number] [address] THOMAS Love UNAVAILABLE [id number] UNAV AILABLE [id number] Self [id number] Problems, Conditions, and Diagnoses Code Display Name Description Problem Type Effective Dates Data Source(s) 08704421 Essential hypertension Essential hypertension Problem 04/16/2019 12:00:00 AM EST MEDENT ([facility] [id number] Pure hypercholesterolemia Pure hypercholesterolemia Pr oblem 04/16/2019 12:00:00 AM EST MEDENT ([facility]) F43.21 074533823 Grief reaction Problem 03/04/2019 12:00:00 A M EST eCW1 ([facility]) F43.21 [id number] Grief reaction Problem 03/04/2019 12:00:00 A M EST eCW1 ([facility]) Surgeries/Procedures Procedure Description Date Indications Data Source(s) Immunization: Shingrix 50mcg/0.5mL IM (Zoster) 020 12:00:00 AM EDT eCW1 ([facility]) RADIOLOGIC EXAM KNEE COMPLETE 4/MORE VIEWS 05/11/2019 12:00:00 AM EDT MEDENT ([facility]) RADEX ANKLE COMPLETE MINIMUM 3 VIEWS 05/11/2019 12:00: 00 AM EDT MEDENT ([facility]) Shingrix 50mcg/0.5mL (Zoster) 04/26/2019 12:00:[address] eCW1 ([facility]) IMMUNIZATION ADMIN 04/26/2019 12:00:00 AM EST eCW1 ([facility]) CLTX PROX FIBULA/SHFT FX W/O MANJ 04/16/2019 12:00:00 AM EST MEDENT ([facility] ) RADIOLOGIC EXAMINATION TIBIA & FIBULA 2 VIEWS 04/16/19 20 12:00:00 AM EST MEDENT ([facility] ) X-Ray Ankle Ap & Lateral 2 Views 04/16/2019 12:00:00 A M EST MEDENT ([facility]) RADEX ANKLE COMPLETE MINIMUM 3 VIEWS 04/16/2019 12:00: 00 AM EST MEDENT ([facility]) Office Visit, Est Pt., Level 4 PC 03/04/2019 12:00:00 AM EST eCW1 ([facility]) Office Visit, Est Pt., Level 2 FC 03/04/2019 12:00:00 AM EST eCW1 ([facility]) Results ID Date Data Source [id number] 2020 12:00:00 AM EST [facility] Name Value Range Interpretation Code Description Data Honey rce(s) Supporting Document(s) SARS-CoV2 Rapid Antigen Positive [facility] This lab was reported by Jose David Llanes. ID Date Data Source PTH INTACT 03/15/2019 12:00:00 AM EST eCW1 ([facility]) Name Value Range Interpretation Code Description Data Honey rce(s) Supporting Document(s) 69.6 18.5-88.0 PTH INTACT eCW1 ([facility]) ID Date Data Source VITAMIN D 25-HYDROXY 03/15/2019 12:00:00 AM EST eCW1 ([facility]) Name Value Range Interpretation Code Description Data Honey rce(s) Supporting Document(s) 34.7 30.0-100.0 TOTAL 25(OH) VITAMIN D eC W1 ([facility]) ID Date Data Source LIPID PANEL (CARDIAC RISK) 03/15/2019 12:00:00 AM EST eCW1 ( [facility]) Name Value Range Interpretation Code Description Data Honey rce(s) Supporting Document(s) Cholesterol [Moles/volume] in Serum or Plasma 158 <200 CHOLESTEROL LEVEL eCW1 ([facility]) Triglyceride [Mass/volume] in Serum or Plasma by calculation 145 <150 TRIGLYCERIDES LEVEL eCW1 ([facility]) Cholesterol in HDL [Moles/volume] in Serum or Plasma 64 >40 HDL CHOLESTEROL eCW1 ([facility]) 2.468 <5 CHOLESTEROL RISK RATIO eCW1 ([facility]) Cholesterol in LDL [Mass/volume] in Serum or Plasma by calculation 65 <100 LDL CHOLESTEROL eCW1 ([facility]) 94 NON-HDL-C eCW1 ([facility]) ID Date Data Source [id number] 03/15/2019 12:00:00 AM EST eCW1 ([facility]) Name Value Range Interpretation Code Description Data Honey rce(s) Supporting Document(s) Hemoglobin A1c/Hemoglobin.total in Blood 5.4 HEMOGLOBIN A1c eCW1 ([facility]) ID Date Data Source Comprehensive Metabolic Profile (CMP) 03/15/2019 12:00:00 AM EST eCW1 ([facility]) Name Value Range Interpretation Code Description Data Honey rce(s) Supporting Document(s) 93 70-100 GLUCOSE, FASTING eCW1 ([facility]) 12 7-18 BLOOD UREA NITROGEN eCW1 (Replaced by [facility]) 0.53 0.55-1.30 CREATININE FOR GFR eCW1 ([facility]) > 60.0 >45 GLOMERULAR FILTRATION RATE eCW 1 ([facility]) 144 136-145 SODIUM LEVEL eCW1 ([facility]) 4.2 3.5-5.1 POTASSIUM SERUM eCW1 ([facility]) 111 98-107 CHLORIDE LEVEL eCW1 ([facility]) 30 21-32 CARBON DIOXIDE LEVEL eCW1 ([facility] hospital) 14 7-37 AST/SGOT eCW1 ([facility]) 21 12-78 ALT/SGPT eCW1 ([facility]) 8.8 8.8-10.2 CALCIUM LEVEL eCW1 ([facility]) 3.9 3.2-5.2 ALBUMIN eCW1 ([facility]) 0.5 0.2-1.0 BILIRUBIN,TOTAL eCW1 ([facility]) 6.7 6.4-8.2 TOTAL PROTEIN eCW1 ([facility]) 50 45-117 ALKALINE PHOSPHATASE eCW1 (Critical [facility] hospital) 1.39 1.00-1.93 ALBUMIN/GLOBULIN RATIO eCW1 ([facility]) ID Date Data Source CBC with Differential 03/15/2019 12:00:00 AM EST eCW1 ([facility]) Name Value Range Interpretation Code Description Data Honey rce(s) Supporting Document(s) 4.1 4.0-10.0 WHITE BLOOD COUNT eCW1 ([facility]) 4.75 4.00-5.40 RED BLOOD COUNT eCW1 ([facility]) 43.5 36.0-47.0 HEMATOCRIT eCW1 ([facility]) 13.9 12.0-15.5 HEMOGLOBIN eCW1 ([facility]) 91.6 80.0-96.0 MEAN CORPUSCULAR VOLUME e CW1 ([facility]) 29.3 27.0-33.0 MEAN CORPUSCULAR HEMOGLOB IN eCW1 ([facility]) 32.0 32.0-36.5 MEAN CORPUSCULAR HGB CONC eCW1 ([facility]) 13.7 11.5-14.5 RED CELL DISTRIBUTION WID TH eCW1 ([facility]) 248 150-450 PLATELET COUNT, AUTOMATED eCW1 ([facility]) 57.3 36.0-66.0 NEUTROPHILS % eCW1 ([facility]) 31.6 24.0-44.0 LYMPH % eCW1 ([facility]) 8.0 0.0-5.0 MONO % eCW1 ([facility]) 1.9 0.0-3.0 EOS % eCW1 ([facility]) 1.0 0.0-1.0 BASO % eCW1 ([facility]) 2.4 1.5-8.5 NEUTROPHILS # eCW1 ([facility]) 1.3 1.5-5.0 LYMPH # eCW1 ([facility]) 0.3 0.0-0.8 MONO # eCW1 ([facility]) 0.1 0.0-0.5 EOS # eCW1 ([facility]) 0.0 0.0-0.2 BASO # eCW1 ([facility]) Procedure Social History Code Duration Value Status Description Data Source(s ) Smoking 02/03/2020 12:00:00 AM EST Former Smoker completed Former Smoker eCW1 ([facility]) Smoking 04/16/2019 12:00:00 AM EST Patient is a former smoker completed Patient is a former smoker MEDENT ([facility]) Smoking 03/04/2019 12:00:00 AM EST Former Smoker completed Former Smoker eCW1 ([facility]) Smoking 03/04/2019 12:00:00 AM EST Former Smoker completed Former Smoker eCW1 ([facility]) Smoking 03/04/2019 12:00:00 AM EST Former Smoker completed Former Smoker eCW1 ([facility]) Smoking 03/04/2019 12:00:00 AM EST Former Smoker completed Former Smoker eCW1 ([facility]) Smoking 03/04/2019 12:00:00 AM EST Former Smoker completed Former Smoker eCW1 ([facility]) Vital Signs ID Date Data Source UNK Name Value Range Interpretation Code Description Data Source(s) Body weight 168.00 [lb_av] 168.00 [lb_av] MEDEN T ([facility]) Body temperature 97.0 [degF] 97.0 [degF] MEDENT ([facility]) Oxygen saturation in Arterial blood by Pulse oximetry 97 % 97 % MEDENT ([facility]) Respiratory rate 14 /min 14 /min [facility] Heart rate 88 /min 88 /min MEDENT ([facility], [facility]) Diastolic blood pressure 64 mm[Hg] 64 mm[Hg] MEDENT ([facility]) Systolic blood pressure 118 mm[Hg] 118 mm[Hg] M EDENT ([facility]) Diastolic blood pressure 74 mm[Hg] 74 mm[Hg] eCW1 ([facility]) Systolic blood pressure 136 mm[Hg] 136 mm[Hg] e CW1 ([facility]) Body temperature 98.2 [degF] 98.2 [degF] eCW1 ( [facility]) Respiratory rate 18 /min 18 /min eCW1 ([facility]) Heart rate 90 /min 90 /min eCW1 ([facility]) Body mass index (BMI) [Ratio] 29.15 kg/m2 29.15 kg/m2 eCW1 ([facility]) Body height 63 [in_us] 63 [in_us] eCW1 ([facility]) Body weight Measured 164.6 [lb_av] 164.6 [lb_av ] W1 ([facility])
[2020-03-13] MEDS ORDERED: ASPI81TA26 PO (11:37)
--- NOTE | 2020-03-13 11:43 | REP ---
INDICATION: Coronavirus workup. COMPARISON: None. TECHNIQUE: SINGLE PORTABLE AP VIEW OF THE CHEST WAS PERFORMED. FINDINGS: There are diffuse infiltrates throughout the right lung. There are mild infiltrates in the left mid and lower lung zones. The heart is normal in size and the mediastinal silhouette is unremarkable. IMPRESSION: Moderate diffuse right lung infiltrates. Mild patchy infiltrate left mid and lower lung zones. <Electronically signed by Juan Aldrich > 03/13/20 [id number]
[2020-03-13 12:16] LABS: BASO % 0.3 % (0.0-1.0); EOS % 0.3 % (0.0-3.0); HEMATOCRIT 36.4 % (36.0-47.0); HEMOGLOBIN 11.7 g/dl (12.0-15.5); LYMPH # 0.6 10^3/uL (1.5-5.0); MEAN CORPUSCULAR HEMOGLOBIN 29.2 pg (27.0-33.0); MEAN CORPUSCULAR HGB CONC 32.1 g/dl (32.0-36.5); MEAN CORPUSCULAR VOLUME 90.8 fl (80.0-96.0); MONO # 0.6 10^3/uL (0.0-0.8); MONO % 6.4 % (0.0-5.0); NEUTROPHILS # 7.4 10^3/uL (1.5-8.5); NEUTROPHILS % 85.1 % (36.0-66.0); PLATELET COUNT, AUTOMATED 284 10^3/uL (150-450); RED BLOOD COUNT 4.01 10^6/uL (4.00-5.40); WHITE BLOOD COUNT 8.7 10^3/uL (4.0-10.0)
[2020-03-13 12:42] LABS: D-DIMER QUANT 3930.1 ng/ml (<500)
[2020-03-13 12:55] LABS: ALBUMIN 2.6 GM/DL (3.2-5.2); ALT/SGPT 25 U/L (12-78); BILIRUBIN,TOTAL 0.8 MG/DL (0.2-1.0); BLOOD UREA NITROGEN 9 MG/DL (7-18); CALCIUM LEVEL 8.7 MG/DL (8.8-10.2); CARBON DIOXIDE LEVEL 27 MEQ/L (21-32); CHLORIDE LEVEL 107 MEQ/L (98-107); CREATININE FOR GFR 0.37 MG/DL (0.55-1.30); FERRITIN 377 NG/ML (8-252); GLOMERULAR FILTRATION RATE > 60.0 (>45); GLUCOSE, FASTING 104 MG/DL (70-100); POTASSIUM SERUM 3.3 MEQ/L (3.5-5.1); SODIUM LEVEL 140 MEQ/L (136-145); TOTAL PROTEIN 5.8 GM/DL (6.4-8.2)
[2020-03-13 13:14] LABS: LDH LACTATE DEHYDROGENASE 365 U/L (84-246)
[2020-03-13] MEDS ORDERED: ALBUTEROL 90 MCG/ACT 8GM HFA INHALER INH PRN (14:30)
[2020-03-13 14:54] LABS: C REACTIVE PROTEIN QUANTITATIV 8.41 MG/DL (0.00-0.30)
[2020-03-13] MEDS ORDERED: ISOVUE-370 76% 100ML VIAL As Ordered ONE (14:58)
[2020-03-13 15:02] LABS: INR 1.17; PROTHROMBIN TIME 15.1 SECONDS (12.5-14.3)
[2020-03-13 15:03] LABS: PARTIAL THROMBOPLASTIN TIME 36.5 SECONDS (24.2-38.5)
--- OUTSIDE RECORDS SUMMARY | 2020-03-13 15:11 | CCD ---
Author Author [facility] Organization [facility] Address Unknown Phone Unavailable Care Team Providers Care Novelties Sales Representative Name Role Phone Myles BRIONES MD Unavailable [...] ANSELMO, Myles ANDERSON MD Unavailable Unavailable ANSELMO, Mlyes ANDERSON MD Unavailable Unavailable ANSELMO, Myles ANDERSON [...] Unavailable ANSELMO, Myles ANDERSON MD Unavailable Unavailable ASNELMO, Myles ANDERSON MD Unavailable Unavailable ANSELMO, Myles [...] Unavailable COMMISSOOlena MD Unavailable Unavailable STANBRIDGEMAINE, NAOMIE TELECOMMUNICATIONS LINE INSTALLER Unavailable Unavaila ble STANBRIDGEMAINE, NAOMIE TELECOMMUNICATIONS LINE INSTALLER Unavailable Unavaila ble STANBRIDGEMAINE, NAOMIE TELECOMMUNICATIONS LINE INSTALLER Unavailable Unavaila ble STANBRIDGEMAINE, NAOMIE TELECOMMUNICATIONS LINE INSTALLER Unavailable Unavaila ble STANBRIDGEMAINE, NAOMIE TELECOMMUNICATIONS LINE INSTALLER Unavailable Unavaila ble STANBRIDGEMAINE, NAOMIE TELECOMMUNICATIONS LINE INSTALLER Unavailable Unavaila ble STANBRIDGEMAINE, NAOMIE TELECOMMUNICATIONS LINE INSTALLER Unavailable Unavaila ble STANBRIDGEMAINE, NAOMIE TELECOMMUNICATIONS LINE INSTALLER Unavailable Unavaila ble STANBRIDGEMAINE, NAOMIE TELECOMMUNICATIONS LINE INSTALLER Unavailable Unavaila ble STANBRIDGEMAINE, NAOMIE TELECOMMUNICATIONS LINE INSTALLER Unavailable Unavaila ble RICARDO HOLLINS MD Unavailable [...] is protected by Article 27-F of the [facility] Public Health law. If you continue you may have access to information: Regarding HIV / AIDS; Provided by facilities licensed or operated by the [facility] Office of Mental Health; or Provided by the [facility] Office for People With Developmental Disabilities. If such information is present, then the following [facility] mandated warning applies: This information has been [...] Description Data Source(s) Unknown Male Problem [facility] Female Problem MED[facility] ([facility]) Encounters Encounter Providers Location Date Indications Data Source(s ) Unknown [address] [facility] [place] [address] 03/09/2020 12:00:00 AM EST eCW1 ([facility]) Outpatient Attender: OMID fraire 2020 08:30:00 AM EST MEDENT ([facility]) Unknown [address] [facility] [address] [place] [address] 01/17/2020 12:00:00 AM EST eCW1 ([facility]) Unknown [address] [facility] [place] [address] 01/03/2020 12:00:00 AM EST eCW1 ([facility]) Unknown [address] [place] [address] 12/22/2019 12:00:00 AM EDT eCW1 ([facility]) [address] [address] 10/04/2019 12:00:00 AM EDT eCW1 ([facility]) Outpatient [address] [place] [address] 08/03/2019 12:00:00 AM EDT eCW1 ([facility]) Unknown [address] [place] [address] 08/02/2019 12:00:00 AM EDT eCW1 ([facility]) Recurring Patient Attender: NAOMIE CROWE FNPReferrer: LORENZO ECHEVARRIA MD 07/27/2019 01:42:01 PM EDT [facility] [address] [place] [address] 06/30/2019 12:00:00 AM EDT eCW1 ([facility]) [address] [address] 06/29/2019 12:00:00 AM EDT eCW1 ([facility]) [address] [place] [address] 06/10/2019 12:00:00 AM EDT eCW1 ([facility]) [address] [place] [address] 04/27/2019 12:00:00 AM EST eCW1 ([facility]) [address] [place] [address] 04/26/2019 12:00:00 AM EST eCW1 ([facility]) [address] [place] [address] 04/26/2019 12:00:00 AM EST eCW1 ([facility]) [address] [place] [address] 04/21/2019 12:00:00 AM EST eCW1 ([facility]) Outpatient 04/20/2019 07:11:00 AM EST [facility] Outpatient Attender: RICARDO HOLLINS MD Physical Therapy 09:45:00 AM EST MEDENT ([facility]) OFFICE OUTPATIENT NEW 30 MINUTES Attender: RICARDO HOLLINS MD Ph ysical Therapy 04/07/2019 05:00:00 PM EST MEDENT ([facility]) [address] [address] 04/07/2019 12:00:00 AM EST eCW1 ([facility]) [address] [address] 03/15/2019 12:00:00 AM EST eCW1 ([facility]) [address] [place] [address] 03/15/2019 12:00:00 AM EST eCW1 ([facility]) [address] [place] [address] 03/04/2019 12:00:00 AM EST eCW1 ([facility]) Recurring Patient Attender: MONICA BRIONES MDReferrer: Charlotte durbin MD 01/14/2019 01:52:35 PM EST [facility] Recurring Patient Attender: MONICA BRIONES MDReferrer: ANNALISA BOND MD 01/14/2019 01:42:47 PM EST [facility] Recurring Patient Attender: MONICA ANDREeferrer: ANNALISA BOND MD 01/14/2019 11:46:27 AM EST [facility] Immunizations Vaccine Date Status Description Data Source(s) Zoster 50mcg/0.5mL (Shingrix) 08/03/2019 03:22:00 PM EDT completed eCW1 ([facility]) Zoster 50mcg/0.5mL (Shingrix) 08/03/2019 03:22:00 PM EDT completed eCW1 ([facility]) Zoster 50mcg/0.5mL (Shingrix) 08/03/2019 03:22:00 PM EDT completed eCW1 ([facility]) Zoster 50mcg/0.5mL (Shingrix) 08/03/2019 03:22:00 PM EDT completed eCW1 ([facility]) Zoster 50mcg/0.5mL (Shingrix) 08/03/2019 03:22:00 PM EDT completed eCW1 ([facility]) Zoster 50mcg/0.5mL (Shingrix) 08/03/2019 03:22:00 PM EDT completed eCW1 ([facility]) Zoster 50mcg/0.5mL (Shingrix) 04/26/2019 02:39:00 PM EST completed eCW1 ([facility]) Zoster 50mcg/0.5mL (Shingrix) 04/26/2019 02:39:00 PM EST completed eCW1 ([facility]) Zoster 50mcg/0.5mL (Shingrix) 04/26/2019 02:39:00 PM EST completed eCW1 ([facility]) Zoster 50mcg/0.5mL (Shingrix) 04/26/2019 02:39:00 PM EST completed eCW1 ([facility]) Zoster 50mcg/0.5mL (Shingrix) 04/26/2019 02:39:00 PM EST completed eCW1 ([facility]) Zoster 50mcg/0.5mL (Shingrix) 04/26/2019 02:39:00 PM EST completed eCW1 ([facility]) Zoster 50mcg/0.5mL (Shingrix) 04/26/2019 02:39:00 PM EST completed eCW1 ([facility]) IIV3. This is one of two codes replacing CVX 15, which is being retired. 03/27/2019 03:25:00 PM EST completed eCW1 ([facility]) IIV3. This is one of two codes replacing CVX 15, which is being retired. 03/27/2019 03:25:00 PM EST completed eCW1 ([facility]) IIV3. This is one of two codes replacing CVX 15, which is being retired. 03/27/2019 03:25:00 PM EST completed eCW1 ([facility]) IIV3. This is one of two codes replacing CVX 15, which is being retired. 03/27/2019 03:25:00 PM EST completed eCW1 ([facility]) pneumococcal polysaccharide PPV23 03/27/2019 03:24:00 PM EST comple sandra eCW1 ([facility]) pneumococcal polysaccharide PPV23 03/27/2019 03:24:00 PM EST comple sandra eCW1 ([facility]) pneumococcal polysaccharide PPV23 03/27/2019 03:24:00 PM EST comple sandra eCW1 ([facility]) pneumococcal polysaccharide PPV23 03/27/2019 03:24:00 PM EST comple sandra eCW1 ([facility]) Insurance Providers Payer name Policy type / Coverage type Policy ID Covered democrat ID Covered democrat's relationship to wang Policy Wang Plan Information MEDICARE COMPLETE [id number] SP [id number] MEDICARE COMPLETE [id number] SP [id number] [facility] P [id number] SELF [id number] MEDICARE COMPLETE-[facility] O [id number] S [id number] MEDICARE COMPLETE [id number] SP [id number] [facility] Medicare Complete F [id number] SELF [id number] DME Jurisdiction A [facility] C [id number] SELF [id number] Medicare C [id number] SELF [id number] [facility] MEDICARE [id number] S [id number] [facility] [id number] S [id number] [facility] [id number] S [id number] MEDICARE - [place] [id number] S [id number] ANSI-Medicare Part B [id number] [facility]/Medicare Commercial [id number] Self [id number] ANSI-Medicare Part B [id number] ANSI-Medicare Part B [id number] ANSI-Medicare Part B [id number] ANSI-Medicare Part B [id number] ANSI-Medicare Part B [id number] ANSI-Medicare Part B [id number] ANSI-Medicare Part B [id number] ANSI-Medicare Part B [id number]-[id number]-[id number] ANSI-Medicare Part B [id number] ANSI-Commercial [id number] 141fcb34-0z88-0051-5pi5-48kh5l7v3x2c ANSI-Medicare Part B [id number]-[id number] ANSI-Medicare Part B [id number]-[id number] ANSI-Medicare Part B [id number] ANSI-Commercial [id number]-3js2-id30vj18r59l [id number]-5ji8-oj91ac57l72l ANSI-Commercial [id number]-lf05-1922-m98u-[id number]-wv47-6496-r96n-[id number] ANSI-Medicare Part B [id number] ANSI-Medicare Part B [id number]-o5nd-[id number] ANSI-Medicare Part B [id number]-2h40-[id number] ANSI-Medicare Part B [id number]-[id number] ANSI-Commercial jpx7b08t-i2b2-511d-56ri-319q5902s5i8 ith3x98o-t0y3-078s-64px-546f7984d8v6 ANSI-Medicare Part B [id number]-[id number] uf62kqw8-69i5-8sw6-nm31-u8oxv083o5a5 ANSI-Medicare Part B [id number]-og31-750t-b20y-[id number] ANSI-Commercial 5y8k5e36-4911-086b-[id number] 0a6d4z25-1980-330c-9r81-9538d271vj47 ANSI-Medicare Part B [id number]-[id number] ANSI-Medicare Part B [id number]-zl03-8n11-3x7v-4svb503112b4 ANSI-Commercial b38y98u7-247n-3qvj-249b-n8g17x0732vn g16m10n3-004i-1xwx-159p-z3n57y9193dl ANSI-Medicare Part B [id number]-[id number] [id number]-a392-6f9b246hv7s8 ANSI-Medicare Part B [id number]-[id number] [id number]-9637-0ff5-vs6f-s2l0ds64zz64 ANSI-Commercial [id number]-56s1-4054-[id number]-61s2-3443-[id number] MEDICARE COMPLETE [id number] SP [id number] MEDICARE COMPLETE [id number] SP [id number] ANSI-Medicare Part B [id number]-[id number]-w2y5-hmf6vopb7191 ANSI-Commercial 4u49n4w6-5a6q-2q5e-i711-t24z02479s45 9c54e5n2-9o3u-2b9s-h095-x66d54081d08 ANSI-Medicare Part B [id number]-ntqc-d301qzgbo261 [id number]-[id number]-cuzp-n693ymblq383 [facility] OPTIONS [id number] SP [id number] MEDICARE [id number] A ANSI-Medicare Part B [id number]-05p8-qhm41ao0h32t ANSI-Commercial 4058nbkt-el1e-4x36fx5y-8a77-92fa-9292g806l75r 4537pnsp-hp9n-8t84yb8q-1b80-28ju-1714t120u35l ANSI-Medicare Part B [id number]-dbj6-87qh-i5y3-xay41653a2x1 ANSI-Medicare Part B [id number]-u2h3-p91onk672819 ANSI-Medicare Part B [id number]-8sk7-0462-1l32-4tav172fr064 ANSI-Commercial 9c90gs20-lh9u-6130-9sc6-11ft182wy681 8b86jw69-kv1d-5824-7al9-23qq934vv147 ANSI-Medicare Part B [id number]-[id number] [id number]-7t4i-i2z2-728117eqv9z9 ANSI-Medicare Part B [id number]-[id number] 710331y3-j4x2-7v09-g074-0i735a6nu84c ANSI-Commercial [id number]-2913-o3d8a5i17997 9g199747-8j23-4q7j-4406-u5h9s8p53395 ANSI-Commercial 98d688z5-53q1-168e-60t7-fkr73e4u2ti2 00o904b6-29q5-738p-13r0-cft57j6p1yr4 ANSI-Medicare Part B [id number]-[id number] ats19599-81q9-46h4-sq69-7y0a55m57duo ANSI-Medicare Part B [id number]-[id number] [id number]-l1yr-949v-k8x8-27a7lc272z5u ANSI-Medicare Part B [id number]-tafn-896h98t19kil 5xf2sf73-e2t8-2uyv-tmrh-299v50r26zci ANSI-Medicare Part B [id number]-2k02-4mb7-uskq-[id number] 3a6l9y6c-7y25-0rq0-hyzk-99a4yw6d8168 ANSI-Commercial y527b469-64h7-96p6-k271-z9q590k09573 b999t924-10g6-61v7-d548-n0r360s45246 MEDICARE COMPLETE [id number] ANSI-Commercial [id number]-xqsu788a9ovv [id number]-onup632f0dlt ANSI-Medicare Part B [id number]-[id number] [id number]-[id number] ANSI-Medicare Part B [id number]-4937-z19u-[id number] 76uf9g1j-01lz-3087-i02k-f4903z8yc4ve ANSI-Medicare Part B [id number]-u92r-2552xcw77pz3 [id number]-y603-6a58-x12q-7160tiz98pt3 ANSI-Medicare Part B [id number]-[id number] g28u1052-7d56-3h60-2s5o-75ib05x8956j ANSI-Commercial 0619071d-xjl1-5185-j7d8-b12q56a5w498 5621737f-zhy6-3871-i7t6-e71p94v1h340 ANSI-Medicare Part B [id number] [id number]-f150-66yqa7g2m111 ANSI-Medicare Part B [id number]-5o2n-qnbe-m8ozaz50j2v4 [id number]-6h5f-kvzh-r9yvng38j9o6 ANSI-Commercial 8950r92b-6h63-3an1-7639-2980nz4o94y6 7718k55u-5y35-9mc5-1779-6227rf3c75k8 MEDICARE COMPLETE [id number] ANSI-Medicare Part B [id number] [id number]-[id number] ANSI-Medicare Part B [id number]-[id number] ANSI-Commercial [id number]-qg40-7gf4-18ck-g81c4i5ua207 [id number]-bk81-5tf1-97wv-i02g3c9lo719 ANSI-Medicare Part B [id number]-[id number]-83l0-[id number] ANSI-Medicare Part B [id number]-[id number] [id number]-8573-908w-s6lz-15801h6fa227 ANSI-Commercial [id number]-759v-7u4f-ko18n20u9lm1 [id number]-210h-9n9z-kz33v79s3jn0 ANSI-Medicare Part B [id number] 7050m9ek-z23p-6046-[id number] ANSI-Medicare Part B [id number]-[id number]-746l-[id number] ANSI-Commercial 209hg211-lcf3-7o67-[id number] [id number]-bti3-6j13-[id number] [employer] (HMO) [id number] Self [id number] BC[employer] P[employer] Maintenance Organization (HMO) [id number] Self [id number] [employer]CE[employer] BCBS [id number] Fina CXJ [id number] EXCELLUS BLUE CROSS BLUE SHIELD HEA [id number] S [id number] BC[employer] P[employer] Maintenance Organization (HMO) [id number] Self [id number] BC[employer] P[employer] Health Maintenance Organization (HMO) Se lf [place] F [id number] SELF [id number] [place] [id number] 0 [id number] UNAVAILABLE UNAVAILA BLE WORKERS COMPENSATION BELLA POMCO RAVINDER EMP/DEP O [id number] S [id number] [address] THOMAS Love UNAVAILABLE [id number] UNAV AILABLE [id number] Self [id number] Problems, Conditions, and Diagnoses Code Display Name Description Problem Type Effective Dates Data Source(s) 76138593 Essential hypertension Essential hypertension Problem 04/16/2019 12:00:00 AM EST MEDENT ([facility] ) [id number] Pure hypercholesterolemia Pure hypercholesterolemia Pr oblem 04/16/2019 12:00:00 AM EST MEDENT ([facility]) F43.21 [id number] Grief reaction Problem 03/04/2019 12:00:00 A M EST eCW1 ([facility]) F43.21 [id number] Grief reaction Problem 03/04/2019 12:00:00 A M EST eCW1 ([facility]) Surgeries/Procedures Procedure Description Date Indications Data Source(s) Immunization: Shingrix 50mcg/0.5mL IM (Zoster) 020 12:00:00 AM EDT eCW1 ([facility]) RADIOLOGIC EXAM KNEE COMPLETE 4/MORE VIEWS 05/11/2019 12:00:00 AM EDT MEDENT ([facility]) RADEX ANKLE COMPLETE MINIMUM 3 VIEWS 05/11/2019 12:00: 00 AM EDT MEDENT ([facility]) Shingrix 50mcg/0.5mL (Zoster) 04/26/2019 12:00:[address] eCW1 ([facility]) IMMUNIZATION ADMIN 04/26/2019 12:00:00 AM EST eCW1 ([facility]) CLTX PROX FIBULA/SHFT FX W/O MANJ 04/16/2019 12:00:00 AM EST MEDENT ([facility] ) RADIOLOGIC EXAMINATION TIBIA & FIBULA 2 VIEWS 04/16/19 20 12:00:00 AM EST MEDENT ([facility] ) X-Ray Ankle Ap & Lateral 2 Views 04/16/2019 12:00:00 A M EST MEDENT ([facility]) RADEX ANKLE COMPLETE MINIMUM 3 VIEWS 04/16/2019 12:00: 00 AM EST MEDENT ([facility]) Office Visit, Est Pt., Level 4 PC 03/04/2019 12:00:00 AM EST eCW1 ([facility]) Office Visit, Est Pt., Level 2 FC 03/04/2019 12:00:00 AM EST eCW1 ([facility]) Results ID Date Data Source [id number] 2020 12:00:00 AM EST [facility] Name Value Range Interpretation Code Description Data Honey rce(s) Supporting Document(s) SARS-CoV2 Rapid Antigen Positive [facility] This lab was reported by Jose David Llanes. ID Date Data Source PTH INTACT 03/15/2019 12:00:00 AM EST eCW1 ([facility]) Name Value Range Interpretation Code Description Data Honey rce(s) Supporting Document(s) 69.6 18.5-88.0 PTH INTACT eCW1 ([facility]) ID Date Data Source VITAMIN D 25-HYDROXY 03/15/2019 12:00:00 AM EST eCW1 ([facility]) Name Value Range Interpretation Code Description Data Honey rce(s) Supporting Document(s) 34.7 30.0-100.0 TOTAL 25(OH) VITAMIN D eC W1 ([facility]) ID Date Data Source LIPID PANEL (CARDIAC RISK) 03/15/2019 12:00:00 AM EST eCW1 ( [facility]) Name Value Range Interpretation Code Description Data Honey rce(s) Supporting Document(s) Cholesterol [Moles/volume] in Serum or Plasma 158 <200 CHOLESTEROL LEVEL eCW1 ([facility]) Triglyceride [Mass/volume] in Serum or Plasma by calculation 145 <150 TRIGLYCERIDES LEVEL eCW1 ([facility]) Cholesterol in HDL [Moles/volume] in Serum or Plasma 64 >40 HDL CHOLESTEROL eCW1 ([facility]) 2.468 <5 CHOLESTEROL RISK RATIO eCW1 ([facility]) Cholesterol in LDL [Mass/volume] in Serum or Plasma by calculation 65 <100 LDL CHOLESTEROL eCW1 ([facility]) 94 NON-HDL-C eCW1 ([facility]) ID Date Data Source [id number] 03/15/2019 12:00:00 AM EST eCW1 ([facility]) Name Value Range Interpretation Code Description Data Honey rce(s) Supporting Document(s) Hemoglobin A1c/Hemoglobin.total in Blood 5.4 HEMOGLOBIN A1c eCW1 ([facility]) ID Date Data Source Comprehensive Metabolic Profile (CMP) 03/15/2019 12:00:00 AM EST eCW1 ([facility]) Name Value Range Interpretation Code Description Data Honey rce(s) Supporting Document(s) 93 70-100 GLUCOSE, FASTING eCW1 ([facility]) 12 7-18 BLOOD UREA NITROGEN eCW1 ([facility]) 0.53 0.55-1.30 CREATININE FOR GFR eCW1 ([facility]) > 60.0 >45 GLOMERULAR FILTRATION RATE eCW 1 ([facility]) 144 136-145 SODIUM LEVEL eCW1 ([facility]) 4.2 3.5-5.1 POTASSIUM SERUM eCW1 ([facility]) 111 98-107 CHLORIDE LEVEL eCW1 ([facility]) 30 21-32 CARBON DIOXIDE LEVEL eCW1 ([facility]) 14 7-37 AST/SGOT eCW1 ([facility]) 21 12-78 ALT/SGPT eCW1 ([facility]) 8.8 8.8-10.2 CALCIUM LEVEL eCW1 ([facility]) 3.9 3.2-5.2 ALBUMIN eCW1 ([facility]) 0.5 0.2-1.0 BILIRUBIN,TOTAL eCW1 ([facility]) 6.7 6.4-8.2 TOTAL PROTEIN eCW1 ([facility]) 50 45-117 ALKALINE PHOSPHATASE eCW1 ([facility]) 1.39 1.00-1.93 ALBUMIN/GLOBULIN RATIO eCW1 ([facility]) ID Date Data Source CBC with Differential 03/15/2019 12:00:00 AM EST eCW1 ([facility]) Name Value Range Interpretation Code Description Data Honey rce(s) Supporting Document(s) 4.1 4.0-10.0 WHITE BLOOD COUNT eCW1 ([facility]) 4.75 4.00-5.40 RED BLOOD COUNT eCW1 ([facility]) 43.5 36.0-47.0 HEMATOCRIT eCW1 ([facility]) 13.9 12.0-15.5 HEMOGLOBIN eCW1 ([facility]) 91.6 80.0-96.0 MEAN CORPUSCULAR VOLUME e CW1 ([facility]) 29.3 27.0-33.0 MEAN CORPUSCULAR HEMOGLOB IN eCW1 ([facility]) 32.0 32.0-36.5 MEAN CORPUSCULAR HGB CONC eCW1 ([facility]) 13.7 11.5-14.5 RED CELL DISTRIBUTION WID TH eCW1 ([facility]) 248 150-450 PLATELET COUNT, AUTOMATED eCW1 ([facility]) 57.3 36.0-66.0 NEUTROPHILS % eCW1 ([facility]) 31.6 24.0-44.0 LYMPH % eCW1 ([facility]) 8.0 0.0-5.0 MONO % eCW1 ([facility]) 1.9 0.0-3.0 EOS % eCW1 ([facility]) 1.0 0.0-1.0 BASO % eCW1 ([facility]) 2.4 1.5-8.5 NEUTROPHILS # eCW1 ([facility]) 1.3 1.5-5.0 LYMPH # eCW1 ([facility]) 0.3 0.0-0.8 MONO # eCW1 ([facility]) 0.1 0.0-0.5 EOS # eCW1 ([facility]) 0.0 0.0-0.2 BASO # eCW1 ([facility]) Procedure Social History Code Duration Value Status Description Data Source(s ) Smoking 02/03/2020 12:00:00 AM EST Former Smoker completed Former Smoker eCW1 ([facility]) Smoking 04/16/2019 12:00:00 AM EST Patient is a former smoker completed Patient is a former smoker MEDENT ([facility]) Smoking 03/04/2019 12:00:00 AM EST Former Smoker completed Former Smoker eCW1 ([facility]) Smoking 03/04/2019 12:00:00 AM EST Former Smoker completed Former Smoker eCW1 ([facility]) Smoking 03/04/2019 12:00:00 AM EST Former Smoker completed Former Smoker eCW1 ([facility]) Smoking 03/04/2019 12:00:00 AM EST Former Smoker completed Former Smoker eCW1 ([facility]) Smoking 03/04/2019 12:00:00 AM EST Former Smoker completed Former Smoker eCW1 ([facility]) Vital Signs ID Date Data Source UNK Name Value Range Interpretation Code Description Data Source(s) Body weight 168.00 [lb_av] 168.00 [lb_av] MEDEN T ([facility], [facility]) Body temperature 97.0 [degF] 97.0 [degF] MEDENT ([facility]) Oxygen saturation in Arterial blood by Pulse oximetry 97 % 97 % MEDENT ([facility]) Respiratory rate 14 /min 14 /min [facility] Heart rate 88 /min 88 /min MEDENT ([facility]) Diastolic blood pressure 64 mm[Hg] 64 mm[Hg] MEDENT ([facility]) Systolic blood pressure 118 mm[Hg] 118 mm[Hg] M EDENT ([facility]) Diastolic blood pressure 74 mm[Hg] 74 mm[Hg] eCW1 ([facility]) Systolic blood pressure 136 mm[Hg] 136 mm[Hg] e CW1 ([facility]) Body temperature 98.2 [degF] 98.2 [degF] eCW1 ( [facility]) Respiratory rate 18 /min 18 /min eCW1 ([facility]) Heart rate 90 /min 90 /min eCW1 ([facility]) Body mass index (BMI) [Ratio] 29.15 kg/m2 29.15 kg/m2 eCW1 ([facility]) Body height 63 [in_us] 63 [in_us] eCW1 ([facility]) Body weight Measured 164.6 [lb_av] 164.6 [lb_av ] W1 ([facility])
--- NOTE | 2020-03-13 15:39 | HPEPDOC ---
General Date of Admission Mar 13, 2020 at 14:19 Date of Service: Mar 13, 2020 Chief Complaint The patient is a 70-year-old female admitted with a reason for visit of Pneumonia Due To Covid-19. Source: Patient History of Present Illness Mrs. Matson is a 70 year old female with Barretts esophagus and history of tobacco use who presents with dyspnea in the setting of COVID 19 pneumonia. She lives alone and denies any contacts with COVID positive people. On March 03, she harris d a sinus headache and went to the urgent care to be evaluated. While there, she was tested positive for COVID 19 and was sent home for self isolation. She was feeling horrible and symptoms did not improve. She went to the ED on March 10 for monoclonal antibiotics (received Bamlanivimab) and went home. She still did not feel well. Today, she had a follow up for ED COVID home monitoring. They had her ambulate, and she desaturated down to 85%. She was told to go to the ED for evaluation. At room air, she saturates well, but when she moves to stand, she desaturates down to 85%. Lab work is significant for CRP of 8.41, LDH 365, Ferritin 377, and D-dimer of 3930. WBC within normal. Her symptoms consist of dyspnea with productive cough. She produces a thick white sputum. She also has loss of appetite and food does not appear to her and makes her nauseous. She reports chills at night and occasional diarrhea. Otherwise denies chest pain, abdominal pain, dysuria, rashes, or neuropathy. She was upset that on the , they had not ordered a CXR or had done any lab work on that day. Otherwise, I let her know that if she does well throughout the night and into the morning, she would most likely go home with oxygen. I gave her the option, and she opted to stay the night and possibly go home tomorrow if everything was okay. While she is here, I will do a little more work up. Patient will be placed in observation for exertional dyspnea in the setting of COVID positive. I spoke with patient about CODE STATUS. She wishes to be full code. Home Medications Scheduled Amlodipine Besylate (Amlodipine Besylate) 2.5 Mg Tab, 2.5 MG PO DAILY, (Reported) Aspirin (Aspirin EC) 81 Mg Tablet., 81 MG PO DAILY, (Reported) Atorvastatin Calcium (Atorvastatin Calcium) 10 Mg Tablet, 10 MG PO DAILY, (Reported) Gabapentin (Gabapentin) 600 Mg Tablet, 600 MG PO QHS, (Reported) Omeprazole (Omeprazole) 20 Mg Capsule.dr, 20 MG PO DAILY, (Reported) Paroxetine HCl (Paroxetine) 10 Mg Tab, 10 MG PO BID, (Reported) Zoledronic Acid/Mannitol-Water (Reclast 5 mg/100 ml Solution) 5 Mg/100 Ml Pggybk.btl, 5 MG IV ASDIRECTED, (Reported) YEARLY Scheduled PRN Acetaminophen (Acetaminophen) 500 Mg Tab, 500 MG PO Q6H PRN for PAIN / FEVER, (Reported) Allergies Coded Allergies: No Known Allergies (Unverified , 09/21/18) Past Medical History Medical History 1. Anxiety 2. Osteoporosis 3. Degenerative disc disease of lumbar spine 4. GERD 5. Herpes simplex 1 6. BPPV 7. Leal's esophagus 8. HTN 9. History of tobacco use, may have COPD Surgical History 1. Vaginal hysterectomy 1991 2. Hemorrhoidectomy 2004 3. Upper scopic cholecystectomy 2004 4. Edentulous extracted 5. Colonoscopy and EGD Family History Father: at the age of 38. Had unspecified heart disease Mother: at the age of 83. Had diabetes Social History * Smoker: former Smoker (quit 12 years ago. Smoked for 41 years. One pack per day) Alcohol: Denies Drugs: denies A-FIB/CHADSVASC A-FIB History Current/History of A-Fib/PAF?: No Review of Systems Constitutional: Reports: Chills; Denies: Fever Eyes: Denies: Vision change ENT: Denies: Sore Throat Skin: Denies: Rash Pulmonary: Reports: Dyspnea, Cough (productive with white thick phlegm) Cardiovascular: Reports: Lt Headedness (from poor PO intake); Denies: Chest Pain, Palpitations Gastrointestinal: Reports: Nausea (food), Diarrhea (occasional); Denies: Abdominal Pain Genitourinary: Denies: Dysuria Hematologic: Denies: Bruising Psych: Reports: Anxiety, Depression Physical Examination General Exam: Positive: Alert, Cooperative Eye Exam: Positive: EOMI; Negative: Sclera icteric ENT Exam: Positive: Atraumatic Neck Exam: Positive: Supple Chest Exam: Positive: Diminished Heart Exam: Positive: Rate Normal, Regular Rhythm Abdomen Exam: Positive: Normal bowel sounds, Soft; Negative: Tenderness Extremity Exam: Negative: Edema Skin Exam: Positive: Nl turgor and temperature Neuro Exam: Positive: Cranial Nerves 3-12 NL Psych Exam: Positive: Mental status NL, Mood NL Vital Signs Vital Signs Date Time Temp Pulse Resp B/P (MAP) Pulse Ox O2 Delivery O2 Flow Rate FiO2 03/13/20 10:35 99.5 78 20 121/58 92 Room Air Laboratory Data Labs 24H Laboratory Tests 2 03/13/20 11:43: Immature Granulocyte % (Auto) 0.9, Neutrophils (%) (Auto) 85.1H, Lymphocytes (%) (Auto) 7.0L, Monocytes (%) (Auto) 6.4H, Eosinophils (%) (Auto) 0.3, Basophils (%) (Auto) 0.3, Neutrophils # (Auto) 7.4, Lymphocytes # (Auto) 0.6L, Monocytes # (Auto) 0.6, Eosinophils # (Auto) 0.0, Basophils # (Auto) 0.0, Nucleated Red Blood Cells % (auto) 0.0, Prothrombin Time 15.1H, Prothromb Time International Ratio 1.17, Activated Partial Thromboplast Time 36.5, Fibrinogen 665H, D-Dimer, Quantitative 3930.10H, Anion Gap 6L, Glomerular Filtration Rate > 60.0, Lactic Acid Level 1.2, Calcium Level 8.7L, Ferritin 377H, Total Bilirubin 0.8, Aspartate Amino Transf (AST/SGOT) 22, Alanine Aminotransferase (ALT/SGPT) 25, Alkaline Phosphatase 41L, Lactate Dehydrogenase 365H, Troponin I < 0.02, C- Reactive Protein, Quantitative 8.41H, Total Protein 5.8L, Albumin 2.6L, Albumin/Globulin Ratio 0.8L 03/13/20 12:06: POC pH (Misc Panel) 7.473H, POC Base Excess (Misc Panel) 0.0, POC Saturated Percent O2 (Misc) 90L, POC pO2 (Misc Panel) 54.0L, POC pCO2 (Misc Panel) 31.8L, POC HCO3 (Misc Panel) 23.3, POC Total CO2 (Misc Panel) 24.0 CBC/BMP Laboratory Tests 03/13/20 11:43 Microbiology Microbiology 03/13/20 Blood Culture, Received Pending 03/13/20 Blood Culture, Received Pending Assessment/Plan Mrs. Matson is a 70 year old female with Barretts esophagus and history of tobacco use who presents with dyspnea in the setting of COVID 19 pneumonia. She had tested positive on March 03, and she receive monoclonal antibodies (Bamlanivimab) on March 10. She's had no improvements in symptoms. She had a follow-up in which she desaturated to 85% with ambulation. She was started with the ED. Inflammatory markers and d-dimer were elevated. Chest x-ray demonstrates bilateral infiltrates. She is outside the window for and she is not hypoxic enough for Remdesivir. We'll give her antibiotics to cover for community acquired pneumonia. A pro-calcitonin was also ordered. She'll be on Lovenox for DVT prophylaxis. She'll be on steroids. She is aware that she may go home tomorrow if she does well, but she would like to be observed tonight. Plan / VTE VTE Prophylaxis Ordered?: Yes Plan Plan 1. COVID pneumonia -Positive on Mar 03, monoclonal antibody (Bamlanivimab) Mar 10 -Does well at room air, but desaturates down to 85% with trying to stand -Antibiotics, steroids, and Lovenox at DVT ppx level -Ordered Procalcitonin and CTA chest (to look for PE) -Monitor markers 2. Hypertension -Continue amlodipine 2.5mg qD 3. GERD/Leal's esophagus -Will need to continue PPI for life -Continue Omeprazole 4. Dyslipidemia -Continue atorvastatin 5. Depression/Anxiety -Continue Paroxetine 6. DVT ppx -Lovenox -Disposition: will need to be qualified for home oxygen with ambulation. If she does well throughout the night, possible discharge home tomorrow BUTCH RUVALCABA DO Mar 13, 2020 15:39
[2020-03-13 15:40] VITALS: O2SAT 92
--- NOTE | 2020-03-13 15:43 | REP ---
INDICATION: COVID positive with hypoxia with ambulation. COMPARISON: No comparison chest CT. Comparison portable chest x-ray is from earlier this date.. TECHNIQUE: Helical scanning is acquired after the intravenous injection of 75 mL of intravenous Isovue 370. 3 mm axial images re-formatted. Coronal and sagittal MPR and coronal MIP images are provided. FINDINGS: There are extensive predominantly peripheral mixed alveolar and interstitial infiltrates bilaterally. These involve both upper and lower lobes. The most extensive opacification is seen in the right upper lobe but there are significant areas of infiltrate in the middle lobe on the right and in both lower lobes. There is a very small quantity of right pleural fluid. There are few scattered mediastinal lymph nodes which are borderline in size. There is a right hilar lymph node which is felt to be mildly enlarged, 1.4 cm in short axis dimension. Small lymph nodes are noted in the left hilus. These may be reactive. There is no evidence of pulmonary embolus or aortic vascular disease. There is minimal vascular calcification. In the upper abdomen there is mild diffuse fatty infiltration of the liver. Post cholecystectomy clips are noted. Normal adrenal glands. Visualized upper abdominal structures are otherwise unremarkable. No bony destructive lesion is seen. IMPRESSION: Commonly reported imaging features of COVID 19 pneumonia are present. There are extensive areas of infiltrate in the upper and lower lobes bilaterally, and in the right middle lobe. A very small right pleural effusion is seen. There is mild mediastinal and bilateral hilar lymphadenopathy which may be reactive. Fatty infiltration of the liver.. <Electronically signed by Herbert Flores > 03/13/20 [id number]
[2020-03-13 15:48] VITALS: BP 179/80
[2020-03-13] MEDS ORDERED: POTASSIUM CHLORIDE 10 MEQ SR TABLET PO ONE (16:15)
[2020-03-13] MEDS ORDERED: ACETAMINOPHEN TAB 650MG DOSE (2X325MG) PO PRN (16:15)
[2020-03-13] MEDS: ASPIRIN 81 MG ENTERIC TAB PO SCH (16:30)
[2020-03-13] MEDS: dexameTHASONE 4 MG/ML 1ML VIAL (J1100 PER 1MG) IV SCH (16:31)
[2020-03-13] MEDS: cefTRIAXone SOD 1 GM in D5W MINI-BAG PLUS 50 ML IV SCH (16:31)
[2020-03-13] MEDS: ATORVASTATIN 10 MG TAB PO SCH (16:35)
[2020-03-13] MEDS: OMEPRAZOLE 20 MG CAP PO SCH (16:35)
[2020-03-13] MEDS: AZITHROMYCIN INJ 500 MG, VIAL MATE ADAPTER 1 EACH in D5W 250 ML IV SCH (17:20)
--- NOTE | 2020-03-13 19:58 | ECGEPIP ---
[facility] - ED Test Date: 2020-03-13 Pat Name: THOMAS FRANCO Department: Room: - Gender: Female Chief Learning Officer: gin : 1950 Requested By: Jose Roberto Hart Order Number: [id number] Reading MD: Funmilayo Zaman Measurements Intervals [place] Rate: 78 P: 79 OR: 143 QRS: -21 QRSD: 88 T: -20 QT: 376 QTc: 430 Interpretive Statements SINUS RHYTHM BORDERLINE LEFT AXIS DEVIATION LOW VOLTAGE PRWP NO PRIOR Electronically Signed on 03-13-2020 19:58:14 EST by Funmilayo Zaman
[2020-03-13 20:00] VITALS: BP 166/83; O2SAT 95
[2020-03-13] MEDS: PARoxetine 10MG TABLET PO SCH (20:00)
[2020-03-13] MEDS ORDERED: GABAPENTIN 300 MG CAP PO SCH (21:00)
[2020-03-14] VITALS (7 sets, daily range): BP systolic 142–178; BP diastolic 76–81; O2SAT 90
[2020-03-14 09:00] LABS: HEMATOCRIT 35.2 % (36.0-47.0); HEMOGLOBIN 11.3 g/dl (12.0-15.5); MEAN CORPUSCULAR HEMOGLOBIN 28.3 pg (27.0-33.0); MEAN CORPUSCULAR HGB CONC 32.1 g/dl (32.0-36.5); PLATELET COUNT, AUTOMATED 326 10^3/uL (150-450); WHITE BLOOD COUNT 5.2 10^3/uL (4.0-10.0)
[2020-03-14] MEDS ORDERED: ENOXAPARIN 40MG/0.4ML SYRINGE (J1650 PER 10MG) SC SCH (09:00)
[2020-03-14] MEDS: PARoxetine 10MG TABLET PO SCH (09:01)
[2020-03-14] MEDS: dexameTHASONE 4 MG/ML 1ML VIAL (J1100 PER 1MG) IV SCH (09:01)
[2020-03-14] MEDS: ATORVASTATIN 10 MG TAB PO SCH (09:01)
[2020-03-14] MEDS: OMEPRAZOLE 20 MG CAP PO SCH (09:01)
[2020-03-14] MEDS: ASPIRIN 81 MG ENTERIC TAB PO SCH (09:01)
[2020-03-14 09:25] LABS: BLOOD UREA NITROGEN 9 MG/DL (7-18); C REACTIVE PROTEIN QUANTITATIV 8.27 MG/DL (0.00-0.30); CALCIUM LEVEL 8.6 MG/DL (8.8-10.2); CARBON DIOXIDE LEVEL 21 MEQ/L (21-32); CHLORIDE LEVEL 112 MEQ/L (98-107); CREATININE FOR GFR 0.35 MG/DL (0.55-1.30); FERRITIN 300 NG/ML (8-252); GLOMERULAR FILTRATION RATE > 60.0 (>45); GLUCOSE, FASTING 117 MG/DL (70-100); MAGNESIUM LEVEL 1.7 MG/DL (1.8-2.4); POTASSIUM SERUM 3.9 MEQ/L (3.5-5.1); SODIUM LEVEL 145 MEQ/L (136-145)
[2020-03-14] MEDS ORDERED: TESS100C PO (13:06)
[2020-03-14] MEDS ORDERED: AUGM875T28 PO (13:06)
[2020-03-14] MEDS ORDERED: DEXA2TA PO (13:06)
[2020-03-14] MEDS ORDERED: VENTAER INH (13:06)
[2020-03-14] MEDS: cefTRIAXone SOD 1 GM in D5W MINI-BAG PLUS 50 ML IV SCH (15:00)
[2020-03-14] MEDS: AZITHROMYCIN INJ 500 MG, VIAL MATE ADAPTER 1 EACH in D5W 250 ML IV SCH (15:06)
--- NOTE | 2020-03-14 16:17 | DS.PDOC ---
Discharge Summary General Date of Admission Mar 13, 2020 at 14:19 Date of Discharge Mar 14, 2020 Attending Physician: JAYLAN BA MD Discharge Summary PROCEDURES PERFORMED DURING STAY: [None]. ADMITTING DIAGNOSES: 1. Covid 19 2. Hypertension 3. GERD/Leal's esophagus 4. Dyslipidemia 5. Depression/anxiety DISCHARGE DIAGNOSES: 1. Covid 19 2. Hypertension 3. GERD/Leal's esophagus 4. Dyslipidemia 5. Depression/anxiety COMPLICATIONS/CHIEF COMPLAINT: Pneumonia Due To Covid-19. HISTORY OF PRESENT ILLNESS: Mrs. Matson 70-year-old female patient who was tested positive for Covid on March 03 at urgent care with symptoms of sinus headache and was on quarantine at home, she was having mild symptoms and presented to the ED on August 08 and had monoclonal antibodies transfused and was sent home. She had an follow-up for ED Covid home monitoring they found her on amputation she was desaturating down to 85% and was told to go to ED for reevaluation. She reports having consistent symptoms of dyspnea and productive cough with white sputum and reports loss of appetite, occasional chills at night and diarrhea. HOSPITAL COURSE: During the hospital stay she was stable at room air and saturating more than 90%. She was started on azithromycin 500 mg and ceftriaxone. She reports having some blood-tinged sputum most likely from her recurrent coughing. DISCHARGE MEDICATIONS: Please see below. ALLERGIES: Please see below. PHYSICAL EXAMINATION ON DISCHARGE: General Exam: Positive: Alert, Cooperative Eye Exam: Positive: EOMI; Negative: Sclera icteric ENT Exam: Positive: Atraumatic Neck Exam: Positive: Supple Chest Exam: Positive: Diminished Heart Exam: Positive: Rate Normal, Regular Rhythm Abdomen Exam: Positive: Normal bowel sounds, Soft; Negative: Tenderness Extremity Exam: Negative: Edema Skin Exam: Positive: Nl turgor and temperature Neuro Exam: Positive: Cranial Nerves 3-12 NL Psych Exam: Positive: Mental status NL, Mood NL LABORATORY DATA: Please see below. IMAGING: Chest x-ray on 03/13/20 reported as him a moderate diffuse right lung infiltrates. Mild patchy infiltrate left mid and lower lung zone he did Chest CT on 03/13/20 reported as , Commonly reported imaging features of COVID 19 pneumonia are present. There are extensive areas of infiltrate in the upper and lower lobes bilaterally, and in the right middle lobe. A very small right pleural effusion is seen. There is mild mediastinal and bilateral hilar lymphadenopathy which may be reactive. Fatty infiltration of the liver.. PROGNOSIS: Good ACTIVITY: [As tolerated]. DIET: As tolerated DISCHARGE PLAN: Follow with PCP in 1-2 weeks DISPOSITION: Home DISCHARGE INSTRUCTIONS: 1. Patient is being discharged on Augmentin for 4 days he did 2. Albuterol inhaler 2 puffs every 4 hours as needed 3. Dexamethasone 2 mg daily for 4 days. 4. Tessalon Perles 3 times a day for 5 days. ITEMS TO FOLLOWUP ON ON OUTPATIENT: 1. Follow with PCP in 1-2 weeks DISCHARGE CONDITION: [Stable]. TIME SPENT ON DISCHARGE: Greater than 30 minutes. Vital Signs/I&Os Vital Signs Date Time Temp Pulse Resp B/P (MAP) Pulse Ox O2 Delivery O2 Flow Rate FiO2 03/14/20 09:41 90 Room Air 03/14/20 09:30 156/76 (102) 03/14/20 09:01 65 03/14/20 08:23 98.3 18 I&O- Last 24 Hours up to 6 AM 03/14/20 06:00 Intake Total 290 ml Output Total 1100 ml Balance -810 ml Laboratory Data Labs 24H Laboratory Tests 2 03/14/20 07:46: D-Dimer, Quantitative > 4000H, Anion Gap 12, Glomerular Filtration Rate > 60.0, Calcium Level 8.6L, Magnesium Level 1.7L, Ferritin 300H, C-Reactive Protein, Quantitative 8.27H 03/14/20 08:36: Nucleated Red Blood Cells % (auto) 0.0 CBC/BMP Laboratory Tests 03/14/20 07:46 03/14/20 08:36 Microbiology Microbiology 03/13/20 Blood Culture - Preliminary, Resulted No growth after 24 hours . All specim... 03/13/20 Blood Culture - Preliminary, Resulted No growth after 24 hours . All specim... Discharge Medications Scheduled Amlodipine Besylate (Amlodipine Besylate) 2.5 Mg Tab, 2.5 MG PO DAILY, (Reported) Amoxicillin/Potassium Clav (Augmentin 875-125 Tablet) 1 Each Tablet, 875 MG PO BID Aspirin (Aspirin EC) 81 Mg Tablet.dr, 81 MG PO DAILY, (Reported) Atorvastatin Calcium (Atorvastatin Calcium) 10 Mg Tablet, 10 MG PO DAILY, (Reported) Benzonatate (Tessalon Perle) 100 Mg Capsule, 100 MG PO TID for cough Dexamethasone (Dexamethasone) 2 Mg Tablet, 2 MG PO DAILY Gabapentin (Gabapentin) 600 Mg Tablet, 600 MG PO QHS, (Reported) Omeprazole (Omeprazole) 20 Mg Capsule.dr, 20 MG PO DAILY, (Reported) Paroxetine HCl (Paroxetine) 10 Mg Tab, 10 MG PO BID, (Reported) Zoledronic Acid/Mannitol-Water (Reclast 5 mg/100 ml Solution) 5 Mg/100 Ml Pggybk.btl, 5 MG IV ASDIRECTED, (Reported) YEARLY Scheduled PRN Acetaminophen (Acetaminophen) 500 Mg Tab, 500 MG PO Q6H PRN for PAIN / FEVER, (Reported) Albuterol Sulfate (Ventolin Hfa) 18 Gm Hfa.aer.ad, 2 PUFF INH Q4-6HP PRN for wheezing Allergies Coded Allergies: No Known Allergies (Unverified , 09/21/18) GME ATTESTATION GME ATTESTATION My faculty preceptor for this patient encounter was physically present during e encounter and was fully available. All aspects of the patient interview, examination, medical decision making process, and medical care plan development were reviewed and approved by the faculty preceptor. The faculty preceptor is aware and concurs with the plan as stated in the body of this note and will attest to such by his/her cosignature. ATTENDING NOTE I, Jaylan Ba MD, have independently examined this patient and performed my own physical exam, as well as reviewed the documentation and edited where necessary. I have discussed in detail with the resident / student the findings and plan of treatment as documented by the resident / student and edited their note. I agree with their findings and treatment plan and have edited their documentation. Smita Laura MD Mar 14, 2020 16:17 JAYLAN BA MD Mar 17, 2020 13:52
[2020-03-15 17:22] LABS: MYCOPLASMA PNEUMONIAE IgG 1272 U/mL (0-99); MYCOPLASMA PNEUMONIAE IgM <770 U/mL (0-769)
== END 2020-03-14 18:00 | disposition home health service (06) ==
LOC: M ED 10:18 → M ED INP 14:19 → INTOOBSV 14:19 → ENRESERV 15:07 → M 4MAIN 15:40
PROVIDERS: ADMIT Internal Medicine; ATTEND Internal Medicine
DX: U07.1 COVID-19 (principal); J18.9 Pneumonia, unspecified organism; R09.81 Nasal congestion; R51.9 Headache, unspecified; R19.7 Diarrhea, unspecified; R79.89 Other specified abnormal findings of blood chemistry; R53.83 Other fatigue; R79.1 Abnormal coagulation profile; I10 Essential (primary) hypertension; Z79.82 Long term (current) use of aspirin; Z79.899 Other long term (current) drug therapy; K22.70 Barrett's esophagus without dysplasia; K21.9 Gastro-esophageal reflux disease without esophagitis; H81.10 Benign paroxysmal vertigo, unspecified ear; F41.9 Anxiety disorder, unspecified; F32.9 Major depressive disorder, single episode, unspecified; Z87.891 Personal history of nicotine dependence; M81.0 Age-related osteoporosis without current pathological fracture; J44.9 Chronic obstructive pulmonary disease, unspecified
CPT/HCPCS: 36415; 36600; 71045; 71260; 80048; 80053; 82728; 82803; 83605; 83615; 83735; 84145; 84484; 85025; 85027; 85379; 85384; 85610; 85730; 86140; 86738; 87040; 93005; 96372; 96374; 96375; 96376; 99285; G0378; J0456; J0696; J1100; J1650; Q9967

== ENCOUNTER → 2020-03-23 | Outpatient (REF) | payer MEDICARE ==
[~2020-03-23] MED LIST changes: +ASPI81TA26 PO; +AUGM875T28 PO; +DEXA2TA PO; +TESS100C PO; +VENTAER INH
[2020-03-23 18:05] LABS: BASO # 0.1 10^3/uL (0.0-0.2); BASO % 0.8 % (0.0-1.0); EOS # 0.1 10^3/uL (0.0-0.5); EOS % 1.3 % (0.0-3.0); HEMATOCRIT 41.5 % (36.0-47.0); LYMPH # 1.4 10^3/uL (1.5-5.0); LYMPH % 21.4 % (24.0-44.0); MEAN CORPUSCULAR HEMOGLOBIN 29.5 pg (27.0-33.0); MEAN CORPUSCULAR HGB CONC 31.3 g/dl (32.0-36.5); MEAN CORPUSCULAR VOLUME 94.1 fl (80.0-96.0); MONO # 0.5 10^3/uL (0.0-0.8); MONO % 8.5 % (0.0-5.0); NEUTROPHILS # 4.3 10^3/uL (1.5-8.5); NEUTROPHILS % 67.5 % (36.0-66.0); PLATELET COUNT, AUTOMATED 381 10^3/uL (150-450); RED BLOOD COUNT 4.41 10^6/uL (4.00-5.40); WHITE BLOOD COUNT 6.4 10^3/uL (4.0-10.0)
[2020-03-23 18:32] LABS: ALBUMIN 3.5 GM/DL (3.2-5.2); ALT/SGPT 25 U/L (12-78); BILIRUBIN,TOTAL 0.5 MG/DL (0.2-1.0); BLOOD UREA NITROGEN 13 MG/DL (7-18); C REACTIVE PROTEIN QUANTITATIV 0.74 MG/DL (0.00-0.30); CALCIUM LEVEL 9.9 MG/DL (8.8-10.2); CARBON DIOXIDE LEVEL 31 MEQ/L (21-32); CHLORIDE LEVEL 102 MEQ/L (98-107); CREATININE FOR GFR 0.92 MG/DL (0.55-1.30); GLOMERULAR FILTRATION RATE > 60.0 (>45); GLUCOSE, FASTING 88 MG/DL (70-100); LDH LACTATE DEHYDROGENASE 231 U/L (84-246); POTASSIUM SERUM 4.4 MEQ/L (3.5-5.1); SODIUM LEVEL 141 MEQ/L (136-145); TOTAL PROTEIN 6.5 GM/DL (6.4-8.2)
== END ==
LOC: M SFHCPLAZ 14:44
PROVIDERS: ATTEND Physician Assistant Medical
DX: J12.82 Pneumonia due to coronavirus disease 2019 (principal); Z79.899 Other long term (current) drug therapy

== ENCOUNTER → 2020-03-23 | Outpatient (CLI) | payer MEDICARE ==
--- NOTE | 2020-03-23 16:25 | REPPI ---
INDICATION: J12.82 PNEUMONIA DUE TO CORONAVIRUS DISEASE 2019. COMPARISON: Portable exam obtained 03/13/2019 TECHNIQUE: PA and lateral views FINDINGS: The superior mediastinal structures are midline. The cardiac silhouette is unremarkable in size, shape, and position. The diaphragmatic surfaces of the lungs are regular, and the costophrenic angles are clear. The pulmonary west are significantly improved.. The imaged osseous structures are intact. IMPRESSION: There is been significant improvement in the appearance of the airspace and interstitial opacities seen on the prior portable exam. <Electronically signed by Jack Dave > 03/23/20 2010
== END ==
LOC: M PLAIMG 14:45
PROVIDERS: ATTEND Physician Assistant Medical
DX: J12.82 Pneumonia due to coronavirus disease 2019 (principal); Z79.899 Other long term (current) drug therapy
CPT/HCPCS: 36415; 71046; 80053; 83615; 85025; 86140; G0463

== ENCOUNTER → 2020-07-19 | Outpatient (CLI) | payer MEDICARE ==
[~2020-07-19] MED LIST changes: +GABA-283 PO; -GABA-845 PO
--- NOTE | 2020-07-19 15:44 | REPMRS ---
Patient History The patient states she had a clinical breast exam in June 2020. Family history of ovarian cancer at age 50 in sister, colorectal cancer at age 50 in sister. No Hormone Replacement Therapy Patient states no breast complaints today. Patient has signed MRS History Sheet. Digital Woman Screen Mammo: July 19, 2020 - Exam #: [id number] Bilateral CC and MLO view(s) were taken. Technologist: Kirsty Kelsey, Technologist Prior study comparison: May 19, 2018, bilateral digital woman screen mammo performed at [facility]. February 2017, bilateral digital mammo screening bilat, performed at [facility]. March 12, 2016, bilateral digital mammo screening bilat, performed at [facility]. FINDINGS: There are scattered fibroglandular densities. The Volpara volumetric breast density category is:B. There has been no change in the appearance of the mammogram from the prior studies. There is a mild amount of scattered fibroglandular density which is fairly symmetric. There is no interval development of dominant mass, architectural distortion, or grouped microcalcification suggestive of malignancy. 3-D tomosynthesis shows no additional findings. Assessment: BI-RADS/ACR category 1 mammogram. Negative Mammogram. Recommendation Routine screening mammogram of both breasts in 1 year (for women over age 40). This patient's [facility] Lifetime Breast Cancer Risk is estimated at 4.6 %. This mammogram was interpreted with the aid of an FDA-approved computer-aided dectection system. Electronically Signed By: Herbert Flores MD 07/19/20 [id number]
== END ==
LOC: M WHC 14:36
PROVIDERS: ATTEND Physician Assistant Medical
DX: Z12.31 Encounter for screening mammogram for malignant neoplasm of breast (principal); J12.82 Pneumonia due to coronavirus disease 2019

== ENCOUNTER → 2021-01-03 | Outpatient (CLI) | payer MEDICARE ==
[~2021-01-03] MED LIST changes: +OMEP40CA4 PO; -OMEP40CA97 PO
[2021-01-03 17:50] LABS: BASO # 0.1 10^3/uL (0.0-0.2); BASO % 0.7 % (0.0-1.0); EOS # 0.1 10^3/uL (0.0-0.5); EOS % 1.3 % (0.0-3.0); HEMATOCRIT 40.7 % (36.0-47.0); HEMOGLOBIN 12.8 g/dl (12.0-15.5); LYMPH # 1.4 10^3/uL (1.5-5.0); MEAN CORPUSCULAR HEMOGLOBIN 29.2 pg (27.0-33.0); MEAN CORPUSCULAR HGB CONC 31.4 g/dl (32.0-36.5); MEAN CORPUSCULAR VOLUME 92.9 fl (80.0-96.0); MONO # 0.5 10^3/uL (0.0-0.8); MONO % 6.5 % (2.0-8.0); NEUTROPHILS # 5.6 10^3/uL (1.5-8.5); NEUTROPHILS % 73.1 % (36.0-66.0); PLATELET COUNT, AUTOMATED 222 10^3/uL (150-450); RED BLOOD COUNT 4.38 10^6/uL (4.00-5.40); WHITE BLOOD COUNT 7.7 10^3/uL (4.0-10.0)
[2021-01-03 18:12] LABS: ALBUMIN 3.7 GM/DL (3.2-5.2); ALT/SGPT 24 U/L (12-78); BILIRUBIN,TOTAL 0.4 MG/DL (0.2-1.0); BLOOD UREA NITROGEN 17 MG/DL (7-18); CALCIUM LEVEL 9.2 MG/DL (8.8-10.2); CARBON DIOXIDE LEVEL 28 MEQ/L (21-32); CHLORIDE LEVEL 109 MEQ/L (98-107); CHOLESTEROL LEVEL 168 MG/DL (<200); CREATININE FOR GFR 0.58 MG/DL (0.55-1.30); FREE T4 0.95 NG/DL (0.76-1.46); GLOMERULAR FILTRATION RATE > 60.0 (>45); GLUCOSE, FASTING 104 MG/DL (70-100); HDL CHOLESTEROL 74 MG/DL (>40); LDL CHOLESTEROL 65 MG/DL (<100); NON-HDL-C 94 MG/DL; POTASSIUM SERUM 3.9 MEQ/L (3.5-5.1); SODIUM LEVEL 142 MEQ/L (136-145); THYROID STIMULATING HORMONE 0.575 uIU/ML (0.358-3.740); TOTAL PROTEIN 6.5 GM/DL (6.4-8.2); TRIGLYCERIDES LEVEL 143 MG/DL (<150)
[2021-01-03 18:13] LABS: TOTAL 25(OH) VITAMIN D 21.5 NG/ML (30.0-100.0)
== END ==
LOC: M PLALAB 14:57
PROVIDERS: ATTEND Physician Assistant Medical
DX: F41.9 Anxiety disorder, unspecified (principal); K21.9 Gastro-esophageal reflux disease without esophagitis; E55.9 Vitamin D deficiency, unspecified; E78.00 Pure hypercholesterolemia, unspecified

== ENCOUNTER 2021-01-04 14:44 | Outpatient (CLI) | payer MEDICARE ==
[~2021-01-04] VITALS: Ht 160 cm; Wt 73.0 kg
[2021-01-04 14:58] VITALS: BP 135/73
[2021-01-04] MEDS ORDERED: ZOLEDRONIC ACID 5 MG in IV 1 EA IV ONE (15:00)
[2021-01-04 15:31] VITALS: BP 143/81
== END 2021-01-04 15:30 | disposition home or self-care (01) ==
LOC: M INFU 14:44
PROVIDERS: ATTEND Family Medicine
DX: M81.0 Age-related osteoporosis without current pathological fracture (principal)
CPT/HCPCS: 96365; J3489

== ENCOUNTER → 2021-02-19 | Outpatient (REF) | payer MEDICARE | LOC: M SFHCPLAZ 09:51 | PROVIDERS: ATTEND Physician Assistant | DX: R09.89 Other specified symptoms and signs involving the circulatory and respiratory systems (principal) ==

== ENCOUNTER 2021-08-12 19:19 | Emergency (ER) | payer MEDICARE ==
[~2021-08-12] VITALS: Ht 160 cm; Wt 73.4 kg
[2021-08-12] MEDS ORDERED: TRAM50TA2 (19:27)
[2021-08-12] MEDS ORDERED: methocarbamoL 750 MG TAB PO ONE (20:10)
[2021-08-12] MEDS ORDERED: KETOROLAC 60MG 2ML VIAL IM ONE (21:00)
[2021-08-12 21:40] VITALS: BP 138/92
== END 2021-08-12 21:42 | disposition home or self-care (01) ==
LOC: M ED 19:19
DX: G89.29 Other chronic pain (principal); M25.511 Pain in right shoulder; I10 Essential (primary) hypertension; E78.5 Hyperlipidemia, unspecified; M81.0 Age-related osteoporosis without current pathological fracture; K21.9 Gastro-esophageal reflux disease without esophagitis; M54.9 Dorsalgia, unspecified; Z86.16 Personal history of COVID-19; Z79.899 Other long term (current) drug therapy; Z79.82 Long term (current) use of aspirin
CPT/HCPCS: 73010; 73030; 96372; 99283; J1885

== ENCOUNTER → 2021-08-22 | Outpatient (CLI) | payer MEDICARE ==
[~2021-08-22] MED LIST changes: +TRAM50TA2
== END ==
LOC: M WHC 11:35
PROVIDERS: ATTEND Physician Assistant Medical
DX: Z12.31 Encounter for screening mammogram for malignant neoplasm of breast (principal); Z13.820 Encounter for screening for osteoporosis; M81.0 Age-related osteoporosis without current pathological fracture; M85.88 Other specified disorders of bone density and structure, other site; M85.851 Other specified disorders of bone density and structure, right thigh; M85.852 Other specified disorders of bone density and structure, left thigh; Z80.0 Family history of malignant neoplasm of digestive organs; Z80.3 Family history of malignant neoplasm of breast

== ENCOUNTER → 2022-01-04 | Outpatient (CLI) | payer MEDICARE ==
[2022-01-04 14:30] LABS: BASO # 0.1 10^3/uL (0.0-0.2); BASO % 1.1 % (0.0-1.0); EOS # 0.1 10^3/uL (0.0-0.5); EOS % 1.7 % (0.0-3.0); HEMATOCRIT 44.8 % (36.0-47.0); HEMOGLOBIN 14.2 g/dl (12.0-15.5); LYMPH # 1.4 10^3/uL (1.5-5.0); LYMPH % 29.4 % (24.0-44.0); MEAN CORPUSCULAR HEMOGLOBIN 29.3 pg (27.0-33.0); MEAN CORPUSCULAR HGB CONC 31.7 g/dl (32.0-36.5); MEAN CORPUSCULAR VOLUME 92.4 fl (80.0-96.0); MONO # 0.5 10^3/uL (0.0-0.8); MONO % 10.7 % (2.0-8.0); NEUTROPHILS # 2.7 10^3/uL (1.5-8.5); NEUTROPHILS % 56.7 % (36.0-66.0); PLATELET COUNT, AUTOMATED 232 10^3/uL (150-450); RED BLOOD COUNT 4.85 10^6/uL (4.00-5.40); WHITE BLOOD COUNT 4.7 10^3/uL (4.0-10.0)
[2022-01-04 15:39] LABS: ALBUMIN 3.9 GM/DL (3.2-5.2); ALT/SGPT 25 U/L (12-78); BILIRUBIN,TOTAL 0.6 MG/DL (0.2-1.0); BLOOD UREA NITROGEN 12 MG/DL (7-18); CALCIUM LEVEL 9.4 MG/DL (8.8-10.2); CARBON DIOXIDE LEVEL 29 MEQ/L (21-32); CHLORIDE LEVEL 107 MEQ/L (98-107); CHOLESTEROL LEVEL 179 MG/DL (<200); CHOLESTEROL RISK RATIO 2.386 (<5); CREATININE FOR GFR 0.49 MG/DL (0.55-1.30); FREE T4 0.94 NG/DL (0.76-1.46); GLOMERULAR FILTRATION RATE > 60.0 (>45); GLUCOSE, FASTING 83 MG/DL (70-100); HDL CHOLESTEROL 75 MG/DL (>40); LDL CHOLESTEROL 78 MG/DL (<100); NON-HDL-C 104 MG/DL; POTASSIUM SERUM 4.6 MEQ/L (3.5-5.1); SODIUM LEVEL 142 MEQ/L (136-145); THYROID STIMULATING HORMONE 0.669 uIU/ML (0.358-3.740); TOTAL PROTEIN 6.7 GM/DL (6.4-8.2); TRIGLYCERIDES LEVEL 132 MG/DL (<150)
[2022-01-04 15:54] LABS: HEMOGLOBIN A1c 5.5 %
[2022-01-07 09:49] LABS: TOTAL 25(OH) VITAMIN D 48.1 NG/ML (30.0-100.0)
== END ==
LOC: M PLALAB 11:37
PROVIDERS: ATTEND Physician Assistant Medical
DX: E66.9 Obesity, unspecified (principal); E55.9 Vitamin D deficiency, unspecified; I10 Essential (primary) hypertension; E78.00 Pure hypercholesterolemia, unspecified; Z79.51 Long term (current) use of inhaled steroids; Z79.899 Other long term (current) drug therapy

== ENCOUNTER 2022-01-14 15:00 | Outpatient (CLI) | payer MEDICARE ==
[~2022-01-14 15:00] MED LIST changes: +ZOLEDRONIC ACID 5 MG in IV 1 EA IV ONE
[2022-01-14 15:24] VITALS: BP 151/87
[2022-01-14 16:00] VITALS: BP 113/61
== END 2022-01-14 16:05 ==
LOC: M INFU 15:00
PROVIDERS: ATTEND Physician Assistant Medical
DX: M81.0 Age-related osteoporosis without current pathological fracture (principal)
CPT/HCPCS: 96413; J3489

== ENCOUNTER → 2022-01-28 | Outpatient (CLI) | payer MEDICARE ==
[~2022-01-28] MED LIST changes: -ZOLEDRONIC ACID 5 MG in IV 1 EA IV ONE
== END ==
LOC: M LABSMTC 10:49
PROVIDERS: ATTEND Anesthesiology
DX: Z01.812 Encounter for preprocedural laboratory examination (principal); Z20.822 Contact with and (suspected) exposure to COVID-19

== ENCOUNTER → 2022-03-21 | Outpatient (CLI) | payer MEDICARE ==
[~2022-03-21] MED LIST changes: +ACET-841 PO; +ERGO500029 PO; +MECL-86 PO
== END ==
LOC: M LABSMTC 09:56
PROVIDERS: ATTEND Anesthesiology
DX: Z01.818 Encounter for other preprocedural examination (principal)

== ENCOUNTER 2022-03-26 10:23 | Day surgery (SDC) | payer MEDICARE ==
[~2022-03-26] VITALS: Ht 167.6 cm; Wt 74.3 kg
[~2022-03-26 10:23] MED LIST changes: +NS 1,000 ML IV ONE
[2022-03-26] MEDS ORDERED: fentaNYL 100 MCG/2 ML INJECTION As Ordered ONE (11:40)
[2022-03-26] MEDS ORDERED: propofoL 200 MG/20 ML VIAL As Ordered ONE ×2 (12:04→12:41)
[2022-03-26] MEDS ORDERED: LIDOCAINE 2% 100MG/5ML SDV (FOR ANES.) As Ordered ONE (12:23)
[2022-03-26] MEDS ORDERED: ePHEDrine SULFATE 25 MG/5 ML(5MG/ML) SYRINGE As Ordered ONE (12:35)
[2022-03-26 12:55] VITALS: BP 144/73
== END 2022-03-26 13:25 | disposition home or self-care (01) ==
LOC: M OPP 10:23
PROVIDERS: ATTEND Internal Medicine Gastroenterology
DX: Z80.0 Family history of malignant neoplasm of digestive organs (principal); K57.30 Diverticulosis of large intestine without perforation or abscess without bleeding; K31.7 Polyp of stomach and duodenum; K21.00 Gastro-esophageal reflux disease with esophagitis, without bleeding; Z87.19 Personal history of other diseases of the digestive system; Z79.02 Long term (current) use of antithrombotics/antiplatelets; Z79.891 Long term (current) use of opiate analgesic; Z79.899 Other long term (current) drug therapy; I10 Essential (primary) hypertension; E78.00 Pure hypercholesterolemia, unspecified
CPT/HCPCS: 43239; 88305; G0105

== ENCOUNTER 2022-04-14 14:47 | Emergency (ER) | payer MEDICARE ==
[~2022-04-14] VITALS: Ht 157.5 cm; Wt 72.7 kg
[~2022-04-14 14:47] MED LIST changes: -NS 1,000 ML IV ONE
[2022-04-14 16:58] VITALS: BP 148/78
== END 2022-04-14 16:59 | disposition home or self-care (01) ==
LOC: M ED 14:47
DX: S89.92XA Unspecified injury of left lower leg, initial encounter (principal); S99.912A Unspecified injury of left ankle, initial encounter; W10.9XXA Fall (on) (from) unspecified stairs and steps, initial encounter; Y92.099 Unspecified place in other non-institutional residence as the place of occurrence of the external cause; I10 Essential (primary) hypertension; E78.5 Hyperlipidemia, unspecified; K21.9 Gastro-esophageal reflux disease without esophagitis; F41.9 Anxiety disorder, unspecified; R42 Dizziness and giddiness; M54.9 Dorsalgia, unspecified; Z79.899 Other long term (current) drug therapy

== ENCOUNTER → 2022-07-24 | Outpatient (REF) | payer MEDICARE | LOC: M SFHCPLAZ 13:14 | PROVIDERS: ATTEND Physician Assistant Medical | DX: J01.90 Acute sinusitis, unspecified (principal) ==

== ENCOUNTER → 2022-07-29 | Outpatient (CLI) | payer MEDICARE ==
[2022-07-29 14:22] LABS: BASO # 0.1 10^3/uL (0.0-0.2); EOS # 0.1 10^3/uL (0.0-0.5); EOS % 1.6 % (0.0-3.0); HEMATOCRIT 42.2 % (36.0-47.0); HEMOGLOBIN 13.3 g/dl (12.0-15.5); LYMPH # 1.4 10^3/uL (1.5-5.0); LYMPH % 27.9 % (24.0-44.0); MEAN CORPUSCULAR HEMOGLOBIN 28.5 pg (27.0-33.0); MEAN CORPUSCULAR HGB CONC 31.5 g/dl (32.0-36.5); MEAN CORPUSCULAR VOLUME 90.4 fl (80.0-96.0); MONO # 0.5 10^3/uL (0.0-0.8); MONO % 9.8 % (2.0-8.0); NEUTROPHILS # 2.9 10^3/uL (1.5-8.5); NEUTROPHILS % 59.3 % (36.0-66.0); PLATELET COUNT, AUTOMATED 226 10^3/uL (150-450); RED BLOOD COUNT 4.67 10^6/uL (4.00-5.40); WHITE BLOOD COUNT 4.9 10^3/uL (4.0-10.0)
[2022-07-29 14:24] LABS: ALBUMIN 3.8 G/DL (3.2-5.2); ALKALINE PHOSPHATASE 59 U/L (46-116); ALT/SGPT 17 U/L (7.0-40); AST/SGOT 12 U/L (<34); BILIRUBIN,TOTAL 0.5 MG/DL (0.3-1.2); BLOOD UREA NITROGEN 14 MG/DL (9-23); CALCIUM LEVEL 8.5 MG/DL (8.3-10.6); CARBON DIOXIDE LEVEL 26 MMOL/L (20-31); CHLORIDE LEVEL 109 MMOL/L (98-107); CREATININE FOR GFR 0.56 MG/DL (0.55-1.30); GLOMERULAR FILTRATION RATE > 60.0 (>39); GLUCOSE, FASTING 93 MG/DL (74-106); IRON (FE) 57 UG/DL (50-170); POTASSIUM SERUM 4.1 MMOL/L (3.5-5.1); SODIUM LEVEL 141 MMOL/L (136-145); TOTAL PROTEIN 6.2 G/DL (5.7-8.2)
[2022-07-29 14:25] LABS: FERRITIN 29.6 NG/ML (7.3-270.7)
== END ==
LOC: M PLALAB 11:13
PROVIDERS: ATTEND Physician Assistant Medical
DX: G25.81 Restless legs syndrome (principal); E61.1 Iron deficiency

== ENCOUNTER → 2022-08-23 | Outpatient (CLI) | payer MEDICARE | LOC: M WHC 12:50 | PROVIDERS: ATTEND Physician Assistant Medical | DX: Z12.31 Encounter for screening mammogram for malignant neoplasm of breast (principal); Z80.41 Family history of malignant neoplasm of ovary; Z80.0 Family history of malignant neoplasm of digestive organs ==

== ENCOUNTER → 2022-12-17 | Outpatient (REF) | payer OTHER, MEDICARE ==
[~2022-12-17] MED LIST changes: -GABA-283 PO; +GABA-284 PO
[2022-12-17 17:45] LABS: BASO % 0.6 % (0.0-1.0); EOS # 0.1 10^3/uL (0.0-0.5); EOS % 1.7 % (0.0-3.0); HEMATOCRIT 42.8 % (36.0-47.0); HEMOGLOBIN 13.8 g/dl (12.0-15.5); LYMPH # 1.5 10^3/uL (1.5-5.0); LYMPH % 28.8 % (24.0-44.0); MEAN CORPUSCULAR HEMOGLOBIN 29.6 pg (27.0-33.0); MEAN CORPUSCULAR HGB CONC 32.2 g/dl (32.0-36.5); MEAN CORPUSCULAR VOLUME 91.6 fl (80.0-96.0); MONO # 0.5 10^3/uL (0.0-0.8); MONO % 8.9 % (2.0-8.0); NEUTROPHILS # 3.2 10^3/uL (1.5-8.5); NEUTROPHILS % 59.8 % (36.0-66.0); PLATELET COUNT, AUTOMATED 237 10^3/uL (150-450); RED BLOOD COUNT 4.67 10^6/uL (4.00-5.40); WHITE BLOOD COUNT 5.3 10^3/uL (4.0-10.0)
[2022-12-17 18:03] LABS: ALBUMIN 4.1 G/DL (3.2-5.2); ALKALINE PHOSPHATASE 61 U/L (46-116); ALT/SGPT 20 U/L (7.0-40); AST/SGOT 18 U/L (<34); BILIRUBIN,TOTAL 0.6 MG/DL (0.3-1.2); BLOOD UREA NITROGEN 12 MG/DL (9-23); CALCIUM LEVEL 9.7 MG/DL (8.3-10.6); CARBON DIOXIDE LEVEL 29 MMOL/L (20-31); CHLORIDE LEVEL 106 MMOL/L (98-107); CREATININE FOR GFR 0.55 MG/DL (0.55-1.30); GLOMERULAR FILTRATION RATE > 60.0 (>39); GLUCOSE, FASTING 85 MG/DL (74-106); POTASSIUM SERUM 4.2 MMOL/L (3.5-5.1); SODIUM LEVEL 140 MMOL/L (136-145); TOTAL PROTEIN 6.7 G/DL (5.7-8.2)
[2022-12-17 18:04] LABS: TOTAL 25(OH) VITAMIN D 70.2 NG/ML (20.0-100.0)
[2022-12-17 18:05] LABS: FERRITIN 31.7 NG/ML (7.3-270.7)
== END ==
LOC: M LABDRAWP 16:47
PROVIDERS: ATTEND Physician Assistant Medical
DX: I10 Essential (primary) hypertension (principal); R71.0 Precipitous drop in hematocrit; E55.9 Vitamin D deficiency, unspecified; E78.00 Pure hypercholesterolemia, unspecified

== ENCOUNTER 2023-01-06 14:39 | Outpatient (CLI) | payer MEDICARE, OTHER ==
[~2023-01-06] VITALS: Ht 157.5 cm; Wt 74.5 kg
[2023-01-06 15:25] VITALS: BP 133/63; O2SAT 98
[2023-01-06] MEDS ORDERED: ZOLEDRONIC ACID 5 MG in IV 1 EA IV ONE (15:40)
[2023-01-06 16:40] VITALS: BP 135/77; O2SAT 95
== END 2023-01-06 16:40 ==
LOC: M INFU 14:39
PROVIDERS: ATTEND Physician Assistant Medical
DX: M81.0 Age-related osteoporosis without current pathological fracture (principal)
CPT/HCPCS: 96365; J3489

== ENCOUNTER → 2023-09-03 | Outpatient (CLI) | payer MEDICARE | LOC: M WHC 16:02 | PROVIDERS: ATTEND Physician Assistant Medical | DX: Z12.31 Encounter for screening mammogram for malignant neoplasm of breast (principal) ==

== ENCOUNTER 2023-10-20 21:17 | Emergency (ER) | payer MEDICARE ==
[~2023-10-20] VITALS: Ht 157.5 cm; Wt 76.8 kg
[2023-10-20 23:07] VITALS: BP 163/77; TEMP 96.9; O2SAT 96
== END 2023-10-20 23:10 | disposition home or self-care (01) ==
LOC: M ED 21:17
DX: K11.20 Sialoadenitis, unspecified (principal); H61.22 Impacted cerumen, left ear; I10 Essential (primary) hypertension; Z87.891 Personal history of nicotine dependence; Z79.02 Long term (current) use of antithrombotics/antiplatelets; Z79.1 Long term (current) use of non-steroidal anti-inflammatories (NSAID); Z79.899 Other long term (current) drug therapy

== ENCOUNTER → 2024-01-13 | Outpatient (CLI) | payer MEDICARE ==
[~2024-01-13] MED LIST changes: +GABA-1490 PO; -GABA600T4 PO
[2024-01-13 15:58] LABS: CHOLESTEROL LEVEL 171 MG/DL (<200); CHOLESTEROL RISK RATIO 2.98 (<5); HDL CHOLESTEROL 57.2 MG/DL (>40); LDL CHOLESTEROL 82.6 MG/DL (<100); NON-HDL-C 113.8 MG/DL; TRIGLYCERIDES LEVEL 156 MG/DL (<150)
[2024-01-15 08:43] LABS: ALBUMIN 3.8 G/DL (3.2-5.2); ALKALINE PHOSPHATASE 67 U/L (35-104); ALT/SGPT 23 U/L (7.0-40); AST/SGOT 13 U/L (<34); BILIRUBIN,TOTAL 0.6 MG/DL (0.3-1.2); BLOOD UREA NITROGEN 16 MG/DL (9-23); CALCIUM LEVEL 10.2 MG/DL (8.3-10.6); CARBON DIOXIDE LEVEL 30 MMOL/L (20-31); CHLORIDE LEVEL 105 MMOL/L (98-107); GLOMERULAR FILTRATION RATE > 60.0 (>39); GLUCOSE, FASTING 91 MG/DL (74-106); POTASSIUM SERUM 4.4 MMOL/L (3.5-5.1); SODIUM LEVEL 140 MMOL/L (136-145); TOTAL PROTEIN 6.9 G/DL (5.7-8.2)
== END ==
LOC: M LAB 15:04
PROVIDERS: ATTEND Physician Assistant Medical
DX: M81.0 Age-related osteoporosis without current pathological fracture (principal); E78.00 Pure hypercholesterolemia, unspecified; R71.0 Precipitous drop in hematocrit

== ENCOUNTER → 2024-03-11 | Outpatient (CLI) | payer MEDICARE ==
[2024-03-11 17:13] LABS: BASO # 0.1 10^3/uL (0.0-0.2); BASO % 1.2 % (0.0-1.0); EOS # 0.1 10^3/uL (0.0-0.5); EOS % 1.7 % (0.0-3.0); HEMATOCRIT 41.7 % (36.0-47.0); HEMOGLOBIN 13.4 g/dl (12.0-15.5); LYMPH # 1.6 10^3/uL (1.5-5.0); LYMPH % 31.1 % (24.0-44.0); MEAN CORPUSCULAR HEMOGLOBIN 29.3 pg (27.0-33.0); MEAN CORPUSCULAR HGB CONC 32.1 g/dl (32.0-36.5); MONO # 0.5 10^3/uL (0.0-0.8); MONO % 9.3 % (2.0-8.0); NEUTROPHILS # 2.9 10^3/uL (1.5-8.5); NEUTROPHILS % 56.5 % (36.0-66.0); PLATELET COUNT, AUTOMATED 224 10^3/uL (150-450); RED BLOOD COUNT 4.58 10^6/uL (4.00-5.40); WHITE BLOOD COUNT 5.2 10^3/uL (4.0-10.0)
[2024-03-11 17:43] LABS: IRON (FE) 61 UG/DL (50-170)
[2024-03-11 17:44] LABS: ALKALINE PHOSPHATASE 63 U/L (35-104); ALT/SGPT 21 U/L (7.0-40); AST/SGOT 17 U/L (<34); BILIRUBIN,TOTAL 0.5 MG/DL (0.3-1.2); BLOOD UREA NITROGEN 19 MG/DL (9-23); CALCIUM LEVEL 9.3 MG/DL (8.3-10.6); CARBON DIOXIDE LEVEL 28 MMOL/L (20-31); CHLORIDE LEVEL 105 MMOL/L (98-107); CHOLESTEROL LEVEL 161 MG/DL (<200); CHOLESTEROL RISK RATIO 2.82 (<5); CREATININE FOR GFR 0.57 MG/DL (0.55-1.30); GLOMERULAR FILTRATION RATE > 60.0 (>39); GLUCOSE, FASTING 104 MG/DL (74-106); LDL CHOLESTEROL 68.6 MG/DL (<100); POTASSIUM SERUM 4.4 MMOL/L (3.5-5.1); PTH INTACT 64.1 PG/ML (18.5-88.0); SODIUM LEVEL 143 MMOL/L (136-145); TOTAL PROTEIN 6.9 G/DL (5.7-8.2); TRIGLYCERIDES LEVEL 177 MG/DL (<150)
[2024-03-11 17:45] LABS: HEMOGLOBIN A1c 5.4 % (4.0-6.0)
[2024-03-11 17:46] LABS: THYROID STIMULATING HORMONE 0.896 uIU/ML (0.55-4.78)
[2024-03-11 17:47] LABS: FREE T4 1.02 NG/DL (0.89-1.76)
[2024-03-11 17:49] LABS: TOTAL 25(OH) VITAMIN D 75.3 NG/ML (20.0-100.0)
== END ==
LOC: M PLALAB 14:24
PROVIDERS: ATTEND Physician Assistant Medical
DX: E55.9 Vitamin D deficiency, unspecified (principal); I10 Essential (primary) hypertension; E78.00 Pure hypercholesterolemia, unspecified; D50.9 Iron deficiency anemia, unspecified

== ENCOUNTER 2024-03-17 14:31 | Outpatient (CLI) | payer MEDICARE ==
[~2024-03-17] VITALS: Ht 157.5 cm; Wt 74.5 kg
[2024-03-17 14:40] VITALS: BP 142/70; O2SAT 97
[2024-03-17] MEDS: ZOLEDRONIC ACID 5 MG in IV 1 EA IV ONE (14:51)
[2024-03-17 15:25] VITALS: BP 139/75; O2SAT 98
== END 2024-03-17 15:30 | disposition home or self-care (01) ==
LOC: M INFU 14:31
PROVIDERS: ATTEND Physician Assistant Medical
DX: M81.0 Age-related osteoporosis without current pathological fracture (principal)
CPT/HCPCS: 96365; J3489

== ENCOUNTER → 2024-09-07 | Outpatient (CLI) | payer MEDICARE | LOC: M WHC 14:19 | PROVIDERS: ATTEND Physician Assistant Medical | DX: Z12.31 Encounter for screening mammogram for malignant neoplasm of breast (principal) ==

== ENCOUNTER → 2024-11-22 | Outpatient (CLI) | payer MEDICARE | LOC: M WHC 14:20 | PROVIDERS: ATTEND Physician Assistant Medical | DX: M81.0 Age-related osteoporosis without current pathological fracture (principal) ==

== ENCOUNTER → 2024-12-27 | Outpatient (CLI) | payer MEDICARE ==
[2024-12-27 17:23] LABS: ALT/SGPT 35 U/L (7.0-40); AST/SGOT 24 U/L (<34); CALCIUM LEVEL 9.6 MG/DL (8.3-10.6); CARBON DIOXIDE LEVEL 27 MMOL/L (20-31); CHLORIDE LEVEL 107 MMOL/L (98-107); CREATININE FOR GFR 0.54 MG/DL (0.55-1.30); GLOMERULAR FILTRATION RATE > 90.0 (>39); POTASSIUM SERUM 4.3 MMOL/L (3.5-5.1); SODIUM LEVEL 144 MMOL/L (136-145)
== END ==
LOC: M PLALAB 15:02
PROVIDERS: ATTEND Physician Assistant Medical
DX: M81.0 Age-related osteoporosis without current pathological fracture (principal)

== ENCOUNTER → 2025-01-03 | Outpatient (CLI) | payer MEDICARE | LOC: M WUC 14:58 | PROVIDERS: ATTEND Student in an Organized Health Care Education/Training Program | DX: M79.672 Pain in left foot (principal); M19.072 Primary osteoarthritis, left ankle and foot ==

== ENCOUNTER 2025-01-10 17:24 | Emergency (ER) | payer MEDICARE ==
[~2025-01-10] VITALS: Ht 157.5 cm; Wt 77.6 kg
[2025-01-10 21:40] VITALS: BP 169/89; TEMP 98.7; O2SAT 98
== END 2025-01-10 21:41 | disposition home or self-care (01) ==
LOC: M ED 17:24
DX: S00.81XA Abrasion of other part of head, initial encounter (principal); Y92.9 Unspecified place or not applicable; Y93.9 Activity, unspecified; Y99.9 Unspecified external cause status; W01.0XXA Fall on same level from slipping, tripping and stumbling without subsequent striking against object, initial encounter; J32.3 Chronic sphenoidal sinusitis; K21.9 Gastro-esophageal reflux disease without esophagitis; I10 Essential (primary) hypertension; E78.5 Hyperlipidemia, unspecified; Z79.1 Long term (current) use of non-steroidal anti-inflammatories (NSAID); Z79.899 Other long term (current) drug therapy

== ENCOUNTER → 2025-01-25 | Outpatient (CLI) | payer MEDICARE | LOC: M PLALAB 14:59 → M PLAIMG 14:59 | PROVIDERS: ATTEND Physician Assistant Medical | DX: S00.83XD Contusion of other part of head, subsequent encounter (principal); W19.XXXD Unspecified fall, subsequent encounter; J32.0 Chronic maxillary sinusitis; R10.31 Right lower quadrant pain ==